=== PATIENT | female | born 1955 | race Caucasian/White ===

== ENCOUNTER 2020-12-28 07:12 | Outpatient (CLI) | payer MEDICARE, OTHER ==
[~2020-12-28] VITALS: Ht 162.6 cm; Wt 93.0 kg
[2021-01-01] MEDS ORDERED: FENO43CA6 PO (10:05)
[2021-01-01] MEDS ORDERED: OMEP20CA18 PO (10:05)
[2021-01-01] MEDS ORDERED: ATEN25TA PO (10:05)
[2021-01-01] MEDS ORDERED: BETA1TAB15 PO (10:05)
[2021-01-01] MEDS ORDERED: CALC600T91 PO (10:05)
[2021-01-01] MEDS ORDERED: AMT10T PO (10:05)
[2021-01-01] MEDS ORDERED: LOSA100T57 PO (10:05)
[2021-01-01] MEDS ORDERED: ASCO100024 PO (10:05)
[2021-01-01] MEDS ORDERED: MELA5TAB14 PO (10:05)
[2021-01-01] MEDS ORDERED: MV-M1TAB20 PO (10:05)
[2021-01-01] MEDS ORDERED: CITA10TA12 PO (10:05)
[2021-01-01] MEDS ORDERED: CYCL10TA9 PO (10:05)
[2021-01-01] MEDS ORDERED: BUPR300T43 PO (10:05)
== END 2021-01-02 15:29 | disposition home or self-care (01) ==
LOC: PREOP 07:12
PROVIDERS: ATTEND Specialist
DX: Z01.818 Encounter for other preprocedural examination (principal)

== ENCOUNTER 2021-01-04 10:43 | Day surgery (SDC) | payer MEDICARE, OTHER ==
[~2021-01-04] VITALS: Ht 162.6 cm; Wt 93.0 kg
[~2021-01-04 10:43] MED LIST: AMT10T PO; ASCO100024 PO; ATEN25TA PO; BETA1TAB15 PO; BUPR300T43 PO; CALC600T91 PO; CITA10TA12 PO; CYCL10TA9 PO; FENO43CA6 PO; LOSA100T57 PO; MELA5TAB14 PO; MV-M1TAB20 PO; OMEP20CA18 PO
--- OUTSIDE RECORDS SUMMARY | 2021-01-04 10:48 | XMS REPORT | CCD ---
Author Author Alana Williamson D.O. Organization [facility] Address [address] [place] [address] Phone Care Team Providers Care Information Technology Teacher Name Role Phone Khadijah Williamson D.O., PP Unavailable CCM Unavailable Summary Purpose Interface Exchange Insurance Providers Payer name Policy type / Coverage type Covered alliance party ID Effective Begin Date Effective End Date WPS MEDICARE [place] Medicare Part B [id number] 2018 Unknown [employer] Medicare Part B [id number] Unknown Family History Family History data not found Social History Social History Element Codes Description Effective Dates Tobacco history SNOMED CT: 046042236 Unknown if ever smoked 09/13 Allergies, Adverse Reactions, Alerts Substance Reaction Codes Entered Date Inactivated Date Status _ Unknown 06/11/2009 No Inactive Date Active Milk _ Unknown 06/11/2009 No Inactive Date Active MORPHINE SULFATE _ RxNorm: 4170910 06/11/2009 No Inactive Da te Active * NO KNOWN ENVIRONMENTAL ALLERGIES Unknown 06/11/2009 N o Inactive Date Active Problems Condition Codes Effective Dates Condition Status Chronic major depressive disorder, recurrent episode I CD-10: F33.9 ICD-9: 296.30 07/20/2019 Active Essential hypertension ICD-10: I10 ICD-9: 401.9 02/08/2014 Active Other malaise and fatigue ICD-10: R53.81 ICD-9: 780.79 09/25/2020 Active Type 2 diabetes mellitus with hyperglycemia ICD-10: E1 1.65 ICD-9: 250.02 08/14/2011 Active Major depressive disorder, recurrent, moderate ICD-10: F33.1 ICD-9: 296.32 09/03/2017 Active Thyroid nodule ICD-10: E04.1 ICD-9: 241.0 06/19/2020 Active Type 2 diabetes mellitus without complications ICD-10: E11.9 ICD-9: 250.00 02/08/2014 Active Insomnia ICD-10: G47.00 ICD-9: 780.52 02/13/2020 Active Other spondylosis with radiculopathy, lumbosacral blake on ICD-10: M47.27 ICD-9: 722.52 11/26/2016 Active PNEUMOCOCCAL VACCINE ICD-10: Z23 ICD-9: V03.82 01/05/2019 Active Cough ICD-10: R05 ICD-9: 786.2 07/20/2019 Active Iron deficiency anemia ICD-10: D50.9 ICD-9: 280.9 10/31/2019 Active Mixed hyperlipidemia ICD-10: E78.2 ICD-9: 272.4 03/10/2016 Active Cystitis ICD-10: N30.90 ICD-9: 595.9 08/17/2019 Active Major depressive disorder, single episode, severe with out psychotic features ICD-10: F32.2 ICD-9: 311 08/13/2017 Active Sacroiliitis ICD-10: M46.1 ICD-9: 720.2 08/17/2019 Active Falls ICD-10: W19.XXXA ICD-9: E888.9 04/14/2019 Active Hypothyroidism, unspecified ICD-10: E03.9 ICD-9: 244.9 06/17/2012 Active Skin tag ICD-10: L91.8 ICD-9: 701.9 04/14/2019 Active Cervicalgia ICD-10: M54.2 ICD-9: 723.1 04/22/2017 Active Encounter for general adult medical examination withou t abnormal findings ICD- 10: Z00.00 ICD-9: V70.9 11/26/2016 Active FLU VACCINE ICD-10: Z23 ICD-9: V04.81 01/05/2019 Active Pain in left shoulder ICD-10: M25.512 ICD-9: 719.41 09/28/2018 Active Encounter for general adult medical examination withou t abnormal findings ICD- 10: Z00.00 ICD-9: V70.0 09/24/2014 Active Epigastric pain ICD-10: R10.13 ICD-9: 789.06 10/08/2017 Active Pain in left elbow ICD-10: M25.522 ICD-9: 719.42 09/28/2018 Active Pleurodynia ICD-10: R07.81 ICD-9: 786.50 09/28/2018 Active Elevated white blood cell count, unspecified ICD-10: D 72.829 ICD-9: 288.60 09/15/2018 Active Diarrhea, unspecified ICD-10: R19.7 ICD-9: 787.91 01/04/2018 Active URI, ACUTE ICD-10: J06.9 ICD-9: 465.9 08/13/2017 Active Acute bronchitis, unspecified ICD-10: J20.9 ICD-9: 466.0 03/11/2017 Active Localized enlarged lymph nodes ICD-10: R59.0 ICD-9: 785.6 03/11/2017 Active Infectious gastroenteritis and colitis, unspecified IC D-10: A09 ICD-9: 558.9 12/10/2016 Active Trochanteric bursitis, left hip ICD-10: M70.62 ICD-9: 726.5 07/14/2016 Active Varicose veins of left lower extremity with inflammati on ICD-10: I83.12 ICD-9: 454.1 11/05/2015 Active 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 ICD-10: E11.29 ICD-9: 250.00 02/08/2014 Active HYPOTHYROIDISM ICD-9: 244.9 06/17/2012 Active ROUTINE MEDICAL EXAM ICD-9: V70.0 09/24/2014 Active DEPRESSIVE DISORDER NEC ICD-9: 311 02/08/2014 Active DM W/O COMPLICATION TYPE II ICD-9: 250.00 02/08/2014 Acti ve HYPERTENSION ICD-9: 401.9 02/08/2014 Active OSTEOARTHRISIS MULTI SITES ICD-9: 715.98 05/11/2013 Activ e Apnea ICD-9: 786.03 09/02/2012 Active Tinea cruris ICD-9: 110.3 06/17/2012 Active ALLERGIC RHINITIS ICD-9: 477.9 10/27/2011 Active EDEMA ICD-9: 782.3 10/27/2011 Active Anemia Unknown 08/14/2011 Active ANEMIA IRON DEFICIENCY ICD-9: 280.9 08/14/2011 Active DM W/O COMPLICATION TYPE II, UNCONTROLLED ICD-9: 250.02 2011 Active Radiculopathy ICD-9: 729.2 07/09/2011 Active COUGH ICD-9: 786.2 09/18/2010 Active ACUTE STRESS REACT ICD-9: 308.9 08/19/2010 Active MALAISE AND FATIGUE ICD-9: 780.79 08/19/2010 Active POLYURIA ICD-9: 788.42 06/05/2010 Active Leg pain, left ICD-9: 729.5 09/19/2009 Active LUMB/LUMBOSAC DISC DEGEN ICD-9: 722.52 09/19/2009 Active Depression Unknown 06/11/2009 Active Diabetes mellitus Type 2 Unknown 06/11/2009 Active Diverticular disease Unknown 06/11/2009 Active Gastroesophageal reflux disease Unknown 06/11/2009 Active Hyperlipidemia Unknown 06/11/2009 Active Hypertension Unknown 06/11/2009 Active Resless leg syndrome Unknown 06/11/2009 Active BRONCHITIS, ACUTE ICD-9: 466.0 06/11/2009 Active GANGLION OF TENDON ICD-9: 727.42 06/11/2009 Active SINUSITIS, ACUTE ICD-9: 461.9 06/11/2009 Active Medications Medication Codes Instructions Start Date Stop Date Status Fill Instructions bupropion HCl XL 300 mg 24 hr tablet, extended release RxNor m: 639023 Take 1 Tablet(s) Oral QAM 11/12/2020 02/09/2021 Active citalopram 10 mg tablet RxNorm: 647486 Take 1 tablet by mouth o nce daily 11/05/2020 02/02/2021 Active cyclobenzaprine 10 mg tablet RxNorm: 117205 2-1 Table t(s) Oral three times a day as needed for muscle spasm 09/25/2020 10/14/2020 Inactive cyclobenzaprine 10 mg tablet RxNorm: 305879 2-1 Table t(s) Oral three times a day as needed for muscle spasm 09/25/2020 10/14/2020 Inactive fenofibrate micronized 134 mg capsule RxNorm: 525063 Ta ke 1 capsule by mouth once daily 08/27/2020 11/24/2020 Active citalopram 10 mg tablet RxNorm: 974079 Take 1 tablet by mouth o nce daily 08/06/2020 08/06/2020 Inactive atenolol 25 mg tablet RxNorm: 589628 Take 1 tablet by mouth onc e daily Oral 07/30/2020 01/25/2021 Active amitriptyline 10 mg tablet RxNorm: 985258 1-2 Tablet(s) Oral QPM as needed for sleep 06/05/2020 06/05/2020 Inactive omeprazole 20 mg capsule,delayed release RxNorm: 291091 1 Capsu le(s) Oral QD 06/05/2020 12/01/2020 Active cyclobenzaprine 10 mg tablet RxNorm: 597500 1/2-1 Table t(s) Oral three times a day as needed for muscle spasm 06/05/2020 06/05/2020 Inactive losartan 100 mg tablet RxNorm: 005860 1 Tablet(s) Oral every ni ght at bedtime 05/31/2020 11/26/2020 Active fenofibrate micronized 134 mg capsule RxNorm: 556223 Ta ke 1 capsule by mouth once daily 05/21/2020 05/21/2020 Inactive Celebrex 200 mg capsule RxNorm: 613475 1 Capsule(s) Ora l two times a day for pain 05/16/2020 08/13/2020 Inactive Wellbutrin XL 300 mg 24 hr tablet, extended release RxNorm: 332141 1 Tablet(s) Oral QAM 05/16/2020 05/16/2020 Inactive citalopram 10 mg tablet RxNorm: 899673 1 Tablet(s) Oral QD 05/15/1908/05/2020 Inactive omeprazole 20 mg capsule,delayed release RxNorm: 911105 Take 1 capsule by mouth once daily 03/05/2020 06/04/2020 Inactive fenofibrate micronized 134 mg capsule RxNorm: 328363 Ta ke 1 capsule by mouth once daily 02/20/2020 05/19/2020 Inactive amitriptyline 10 mg tablet RxNorm: 818356 1-2 Tablet(s) Oral QPM as needed for sleep 02/13/2020 06/04/2020 Inactive Celebrex 200 mg capsule RxNorm: 703859 TAKE 1 CAPSULE B Y MOUTH TWICE DAILY FOR PAIN 01/30/2020 05/15/2020 Inactive cyclobenzaprine 10 mg tablet RxNorm: 936828 TAKE 1/2 TO 1 (ONE-HALF TO ONE) TABLET BY MOUTH THREE TIMES DAILY NEEDED FOR MUSCLE SPASM 01/30/2020 06/04/2020 Inactive losartan 100 mg tablet RxNorm: 273275 TAKE 1 TABLET BY MOUTH ONCE DAILY AT BEDTIME 11/09/2019 05/30/2020 Inactive fenofibrate micronized 134 mg capsule RxNorm: 215123 1 Capsule( s) Oral QD 11/09/2019 02/06/2020 Inactive Wellbutrin XL 300 mg 24 hr tablet, extended release RxNorm: 226162 1 Tablet(s) Oral QAM 11/09/2019 05/15/2020 Inactive omeprazole 20 mg capsule,delayed release RxNorm: 340452 1 Capsu le(s) Oral QD 11/09/2019 02/06/2020 Inactive atenolol 25 mg tablet RxNorm: 838211 Take 1 tablet by mouth onc e daily 11/09/2019 07/29/2020 Inactive atenolol 25 mg tablet RxNorm: 934498 Take 1 tablet by mouth onc e daily 10/31/2019 11/08/2019 Inactive Celebrex 200 mg capsule RxNorm: 970862 TAKE 1 CAPSULE B Y MOUTH TWICE DAILY FOR PAIN 10/03/2019 11/01/2019 Inactive cyclobenzaprine 10 mg tablet RxNorm: 088887 TAKE 1/2 TO 1 (ONE-HALF TO ONE) TABLET BY MOUTH THREE TIMES DAILY NEEDED FOR MUSCLE SPASM 10/03/2019 11/11/2019 Inactive losartan 100 mg tablet RxNorm: 305555 TAKE 1 TABLET BY MOUTH ONCE DAILY AT BEDTIME 08/30/2019 11/08/2019 Inactive fenofibrate micronized 134 mg capsule RxNorm: 862000 1 Capsule( s) Oral QD 08/22/2019 11/08/2019 Inactive Wellbutrin XL 300 mg 24 hr tablet, extended release RxNorm: 693894 1 Tablet(s) Oral QAM 08/17/2019 11/08/2019 Inactive cyclobenzaprine 10 mg tablet RxNorm: 843349 TAKE 1/2 TO 1 (ONE-HALF TO ONE) TABLET BY MOUTH THREE TIMES DAILY NEEDED FOR MUSCLE SPASM 08/01/2019 08/20/2019 Inactive Xyzal 5 mg tablet RxNorm: 841209 1 Tablet(s) Oral QD 07/20/[address] op Date Active Wellbutrin XL 150 mg 24 hr tablet, extended release RxNorm: 796446 1 Tablet(s) Oral QAM replaces duloxetine 07/20/2019 02/12/2020 Inactive Tylenol Extra Strength 500 mg tablet RxNorm: 464131 2 T ablet(s) Oral two times a day 07/20/2019 05/13/2020 Inactive cefdinir 300 mg capsule RxNorm: 516056 1 Capsule(s) Oral two ti mes a day 07/20/2019 08/03/2019 Inactive duloxetine 60 mg capsule,delayed release RxNorm: 539292 1 Capsu le(s) Oral QD 06/09/2019 07/19/2019 Inactive omeprazole 20 mg capsule,delayed release RxNorm: 023066 TAKE 1 CAPSULE BY MOUTH ONCE DAILY 06/09/2019 06/08/2019 Inactive omeprazole 20 mg capsule,delayed release RxNorm: 585301 1 Capsu le(s) Oral QD 06/09/2019 09/07/2019 Inactive losartan 100 mg tablet RxNorm: 877511 TAKE 1 TABLET BY MOUTH ONCE DAILY AT BEDTIME 05/30/2019 08/27/2019 Inactive fenofibrate micronized 134 mg capsule RxNorm: 322707 TA KE 1 CAPSULE BY MOUTH ONCE DAILY 05/26/2019 08/21/2019 Inactive duloxetine 60 mg capsule,delayed release RxNorm: 008859 TAKE 1 CAPSULE BY MOUTH ONCE DAILY, REPLACES 30MG DOSE 05/19/2019 06/08/2019 Inactive atenolol 25 mg tablet RxNorm: 201902 1 Tablet(s) Oral QD 04/27/2019 0 10/23/2019 Inactive duloxetine 60 mg capsule,delayed release RxNorm: 326749 TAKE 1 CAPSULE BY MOUTH ONCE DAILY, REPLACES 30MG DOSE 04/18/2019 05/17/2019 Inactive cyclobenzaprine 10 mg tablet RxNorm: 208920 TAKE 1/2 TO 1 (ONE-HALF TO ONE) TABLET BY MOUTH THREE TIMES DAILY NEEDED FOR MUSCLE SPASM 03/29/2019 05/07/2019 Inactive Celebrex 200 mg capsule RxNorm: 878256 TAKE 1 CAPSULE B Y MOUTH TWICE DAILY FOR PAIN 03/29/2019 05/27/2019 Inactive losartan 100 mg tablet RxNorm: 774856 TAKE 1 TABLET BY MOUTH ONCE DAILY AT BEDTIME 03/07/2019 05/29/2019 Inactive duloxetine 60 mg capsule,delayed release RxNorm: 977913 TAKE 1 CAPSULE BY MOUTH ONCE DAILY, REPLACES 30MG DOSE 02/15/2019 04/17/2019 Inactive duloxetine 60 mg capsule,delayed release RxNorm: 901248 TAKE 1 CAPSULE BY MOUTH ONCE DAILY, REPLACES 30MG DOSE 12/14/2018 02/14/2019 Inactive omeprazole 20 mg capsule,delayed release RxNorm: 130433 TAKE 1 CAPSULE BY MOUTH ONCE DAILY 12/14/2018 06/09/2019 Inactive fenofibrate micronized 134 mg capsule RxNorm: 224798 1 Capsule( s) PO QD 11/23/2018 05/25/2019 Inactive duloxetine 60 mg capsule,delayed release RxNorm: 464997 TAKE 1 CAPSULE BY MOUTH ONCE DAILY, REPLACES 30MG DOSE 10/11/2018 12/13/2018 Inactive losartan 100 mg tablet RxNorm: 330920 TAKE 1 TABLET BY MOUTH EVERY DAY AT BEDTIME 09/01/2018 03/06/2019 Inactive fenofibrate micronized 134 mg capsule RxNorm: 460759 1 Capsule( s) PO QD 08/24/2018 11/22/2018 Inactive Celebrex 200 mg capsule RxNorm: 893576 1 Capsule(s) PO BID for pain 07/29/2018 11/25/2018 Inactive cyclobenzaprine 10 mg tablet RxNorm: 804870 1/2-1 Table t(s) PO TID as needed for muscle spasm 07/29/2018 03/28/2019 Inactive cyclobenzaprine 10 mg tablet RxNorm: 519065 1/2-1 Table t(s) PO TID as needed for muscle spasm 06/11/2018 07/28/2018 Inactive Celebrex 200 mg capsule RxNorm: 536494 1 Capsule(s) PO BID for pain 05/27/2018 07/25/2018 Inactive fenofibrate micronized 134 mg capsule RxNorm: 496757 TA KE 1 CAPSULE BY MOUTH ONCE DAILY 05/24/2018 08/24/2018 Inactive omeprazole 20 mg capsule,delayed release RxNorm: 191531 1 Capsu le(s) PO QD 05/10/2018 05/09/2018 Inactive omeprazole 20 mg capsule,delayed release RxNorm: 279458 1 Capsu le(s) PO QD 05/10/2018 11/05/2018 Inactive atenolol 25 mg tablet RxNorm: 628204 1 Tablet(s) PO QD 05/10/201801/2020 Inactive atenolol 25 mg tablet RxNorm: 473266 1 Tablet(s) PO QD 05/10/2018 Inactive losartan 100 mg tablet RxNorm: 543516 1 Tablet(s) PO QHS 04/12/2018 0 08/31/2018 Inactive Januvia 50 mg tablet RxNorm: 442690 1 Tablet(s) PO QD 04/06/201809/13 Inactive duloxetine 60 mg capsule,delayed release RxNorm: 576507 TAKE 1 CAPSULE BY MOUTH ONCE DAILY, REPLACES 30MG DOSE 03/10/2018 10/10/2018 Inactive losartan 100 mg tablet RxNorm: 964479 TAKE 1 TABLET BY MOUTH AT BEDTIME 01/04/2018 04/12/2018 Inactive cyclobenzaprine 10 mg tablet RxNorm: 837966 TAKE 1/2 TO 1 (ONE-HALF TO ONE) TABLET BY MOUTH THREE TIMES DAILY NEEDED FOR MUSCLE SPASM 12/24/2017 06/11/2018 Inactive duloxetine 60 mg capsule,delayed release RxNorm: 568034 TAKE 1 CAPSULE BY MOUTH ONCE DAILY, REPLACES 30MG DOSE 12/08/2017 03/09/2018 Inactive fenofibrate micronized 134 mg capsule RxNorm: 112754 1 Capsule( s) PO QD 11/23/2017 05/21/2018 Inactive atenolol 25 mg tablet RxNorm: 541832 1 Tablet(s) PO QD 11/09/2017 Inactive losartan 100 mg tablet RxNorm: 790737 1 Tablet(s) PO QHS REPLAC ES 50MG DOSE 10/02/2017 12/30/2017 Inactive losartan 100 mg tablet RxNorm: 991941 TAKE ONE TABLET B Y MOUTH ONCE DAILY AT BEDTIME - REPLACES 50MG DOSE 09/08/2017 10/02/2017 Inactive cyclobenzaprine 10 mg tablet RxNorm: 327814 1/2-1 Table t(s) PO TID as needed for muscle spasm 09/03/2017 2017 Inactive duloxetine 60 mg capsule,delayed release RxNorm: 696430 1 Capsule(s) PO QD replaces 30mg dose 09/03/2017 12/01/2017 Inactive fenofibrate micronized 134 mg capsule RxNorm: 192787 1 Capsule( s) PO QD 08/18/2017 11/23/2017 Inactive omeprazole 20 mg capsule,delayed release RxNorm: 640146 Capsule(s) TAKE ONE CAPSULE BY MOUTH ONCE DAILY 08/18/2017 05/10/2018 Inactive metformin 1,000 mg tablet RxNorm: 244043 1 Tablet(s) PO QAM rep laces Janumet 08/13/2017 10/07/2017 Inactive prednisone 20 mg tablet RxNorm: 349653 1 Tablet(s) PO T ID for 3 days then 1 po BID for 3 days then one daily for 3 days 08/13/2017 09/02/2017 Inactiv e Cymbalta 30 mg capsule,delayed release RxNorm: 377996 1 Capsule (s) PO QD 08/13/2017 09/02/2017 Inactive citalopram 40 mg tablet RxNorm: 130023 1 Tablet(s) PO QD 06/09/2017 0 08/12/2017 Inactive meloxicam 15 mg tablet RxNorm: 009588 1 Tablet(s) PO QD 1 Tablet(s) PO QD TAKE ONE TABLET BY MOUTH ONCE DAILY FOR PAIN 05/05/2017 10/07/2017 Inactive fenofibrate micronized 134 mg capsule RxNorm: 151019 1 Capsule( s) PO QD 05/05/2017 08/18/2017 Inactive atenolol 25 mg tablet RxNorm: 348448 1 Tablet(s) PO QD 05/05/2017 Inactive Janumet XR 50 mg-1,000 mg tablet,extended release RxNorm: 12 44625 1 Tablet(s) PO QAM replaces 100mg/1000mg dose 04/22/2017 08/12/2017 Inactive Lyrica 75 mg capsule RxNorm: 433239 1 Capsule(s) PO BID 04/22/2017 Inactive Janumet XR 100 mg-1,000 mg tablet,extended release RxNorm: 1 400176 1 Tablet(s) PO QD 03/11/2017 04/21/2017 Inactive losartan 100 mg tablet RxNorm: 316477 1 Tablet(s) PO QHS replac es 50mg dose 03/11/2017 09/06/2017 Inactive cyclobenzaprine 10 mg tablet RxNorm: 408407 1 Tablet(s) PO TID Tablet(s) 1 Tablet(s) PO TID as needed for muscle spasm 02/04/2017 05/31/2017 Inac tive cyclobenzaprine 10 mg tablet RxNorm: 864351 1 Tablet(s) PO TID Tablet(s) 1 Tablet(s) PO TID as needed for muscle spasm 02/04/2017 02/03/2017 Inac tive omeprazole 20 mg capsule,delayed release RxNorm: 932823 Capsule(s) TAKE ONE CAPSULE BY MOUTH ONCE DAILY 01/05/2017 08/18/2017 Inactive Janumet XR 100 mg-1,000 mg tablet,extended release RxNorm: 1 629014 1 Tablet(s) PO QD 01/05/2017 03/05/2017 Inactive citalopram 40 mg tablet RxNorm: 160979 1 Tablet(s) PO QD 12/03/2016 0 06/09/2017 Inactive atenolol 25 mg tablet RxNorm: 790921 1 Tablet(s) PO QD 11/06/2016 Inactive cyclobenzaprine 10 mg tablet RxNorm: 531862 1 Tablet(s) PO TID Tablet(s) 1 Tablet(s) PO TID as needed for muscle spasm 11/05/2016 02/04/2017 Inac tive Janumet XR 100 mg-1,000 mg tablet,extended release RxNorm: 1 076641 1 Tablet(s) PO QD Due for fasting labs 11/05/2016 01/05/2017 Inactive fenofibrate micronized 134 mg capsule RxNorm: 025226 1 Capsule( s) PO QD 11/05/2016 05/05/2017 Inactive meloxicam 15 mg tablet RxNorm: 379176 1 Tablet(s) PO QD 1 Tablet(s) PO QD TAKE ONE TABLET BY MOUTH ONCE DAILY FOR PAIN 11/05/2016 05/05/2017 Inactive atenolol 25 mg tablet RxNorm: 997361 1 Tablet(s) PO QD 08/07/2016 Inactive cyclobenzaprine 10 mg tablet RxNorm: 510012 Tablet(s) T ablet(s) 1 Tablet(s) PO TID as needed for muscle spasm 08/07/2016 11/05/2016 Inactive Cozaar 50 mg tablet RxNorm: 671568 1 Tablet(s) PO QHS for BP 201603/10/2017 Inactive Cozaar 50 mg tablet RxNorm: 496285 1 Tablet(s) PO QHS for BP 201607/27/2016 Inactive meloxicam 15 mg tablet RxNorm: 649052 1 Tablet(s) PO QD TAKE ONE TABLET BY MOUTH ONCE DAILY FOR PAIN 05/07/2016 11/05/2016 Inactive omeprazole 20 mg capsule,delayed release RxNorm: 871028 TAKE ONE CAPSULE BY MOUTH ONCE DAILY 04/28/2016 01/05/2017 Inactive citalopram 40 mg tablet RxNorm: 867928 1 Tablet(s) PO QD 04/28/2016 0 12/03/2016 Inactive fenofibrate micronized 134 mg capsule RxNorm: 762276 1 Capsule( s) PO QD 03/11/2016 11/05/2016 Inactive Janumet XR 100 mg-1,000 mg tablet,extended release RxNorm: 1 178089 1 Tablet(s) PO QD Due for fasting labs 03/11/2016 11/05/2016 Inactive Cozaar 50 mg tablet RxNorm: 143326 1 Tablet(s) PO QHS for BP 201507/28/2016 Inactive citalopram 40 mg tablet RxNorm: 122022 1 Tablet(s) PO QD 03/11/2016 0 04/09/2016 Inactive cyclobenzaprine 10 mg tablet RxNorm: 002349 Tablet(s) 1 Tablet(s) PO TID as needed for muscle spasm 02/11/2016 08/07/2016 Inactive citalopram 20 mg tablet RxNorm: 544100 TAKE ONE TABLET BY MOUTH AT BEDTIME 12/17/2015 03/10/2016 Inactive atenolol 25 mg tablet RxNorm: 512779 1 Tablet(s) PO QD 11/06/2015 Inactive meloxicam 15 mg tablet RxNorm: 641166 1 Tablet(s) PO QD TAKE ONE TABLET BY MOUTH ONCE DAILY FOR PAIN 11/06/2015 05/03/2016 Inactive Janumet XR 100 mg-1,000 mg tablet,extended release RxNorm: 1 884031 1 Tablet(s) PO QD Due for fasting labs 11/06/2015 03/10/2016 Inactive fenofibrate micronized 134 mg capsule RxNorm: 159825 1 Capsule( s) PO QD 11/06/2015 03/10/2016 Inactive cyclobenzaprine 10 mg tablet RxNorm: 592026 Tablet(s) 1 Tablet(s) PO TID as needed for muscle spasm 11/06/2015 01/04/2016 Inactive Cozaar 50 mg tablet RxNorm: 635986 1 Tablet(s) PO QHS for BP 201503/01/2016 Inactive Janumet XR 100 mg-1,000 mg tablet,extended release RxNorm: 1 411998 1 Tablet(s) PO QD Due for fasting labs 09/04/2015 11/05/2015 Inactive atenolol 25 mg tablet RxNorm: 040707 TAKE ONE TABLET BY MOUTH O NCE DAILY 07/17/2015 08/07/2016 Inactive omeprazole 20 mg capsule,delayed release RxNorm: 375139 1 Capsu le(s) PO QD 07/09/2015 02/03/2016 Inactive cyclobenzaprine 10 mg tablet RxNorm: 232785 Tablet(s) 1 Tablet(s) PO TID as needed for muscle spasm 06/12/2015 08/10/2015 Inactive citalopram 20 mg tablet RxNorm: 876042 1 Tablet(s) PO QHS 06/12/2015 12/08/2015 Inactive meloxicam 15 mg tablet RxNorm: 134244 Tablet(s) TAKE ON E TABLET BY MOUTH ONCE DAILY FOR PAIN 05/16/2015 11/05/2015 Inactive atenolol 25 mg tablet RxNorm: 399561 1 Tablet(s) PO QD 05/11/2015 Inactive fenofibrate micronized 134 mg capsule RxNorm: 169214 1 Capsule( s) PO QD 05/11/2015 11/05/2015 Inactive omeprazole 20 mg capsule,delayed release RxNorm: 301381 1 Capsu le(s) PO QD 04/17/2015 07/08/2015 Inactive doxycycline hyclate 100 mg capsule RxNorm: 6557301 1 Capsule(s) PO BID 03/15/2015 03/24/2015 Inactive Cozaar 50 mg tablet RxNorm: 790084 1 Tablet(s) PO QHS for BP 201409/04/2015 Inactive Janumet XR 100 mg-1,000 mg tablet,extended release RxNorm: 1 342672 1 Tablet(s) PO QD 03/15/2015 09/04/2015 Inactive albuterol sulfate 2.5 mg/3 mL (0.083 %) solution for n ebulization RxNorm: 751284 3 Milliliter(s) INH TID INHALE ONE VIAL PER NEBULIZER 03/01/2015 11/05/2015 Inactive Medrol (Alexei) 4 mg tablets in a dose pack RxNorm: 547020 Tablet(s) PO as directed 03/01/2015 03/14/2015 Inactive as directed cefdinir 300 mg capsule RxNorm: 485622 2 Capsule(s) PO QD 03/01/2015 03/10/2015 Inactive Janumet XR 100 mg-1,000 mg tablet,extended release RxNorm: 1 276030 1 Tablet(s) PO QD Needs fasting labs 02/19/2015 03/15/2015 Inactive Janumet XR 100 mg-1,000 mg tablet,extended release RxNorm: 1 052106 1 Tablet(s) PO QD Needs fasting labs 01/23/2015 02/19/2015 Inactive omeprazole 20 mg capsule,delayed release RxNorm: 899817 1 Capsu le(s) PO QD 01/23/2015 04/16/2015 Inactive citalopram 20 mg tablet RxNorm: 507869 1 Tablet(s) PO QHS 12/18/2014 06/12/2015 Inactive cyclobenzaprine 10 mg tablet RxNorm: 929322 1 Tablet(s) PO TID as needed for muscle spasm 11/13/2014 06/12/2015 Inactive fenofibrate micronized 134 mg capsule RxNorm: 257703 1 Capsule(s) PO QD -patient is due for fasting labs 11/13/2014 05/11/2015 Inactive meloxicam 15 mg tablet RxNorm: 586547 TAKE ONE TABLET B Y MOUTH ONCE DAILY FOR PAIN 11/13/2014 05/16/2015 Inactive atenolol 25 mg tablet RxNorm: 941981 1 Tablet(s) PO QD - due fo r labs 11/13/2014 05/11/2015 Inactive omeprazole 20 mg capsule,delayed release RxNorm: 944457 1 Capsu le(s) PO QD 10/16/2014 01/23/2015 Inactive atenolol 25 mg tablet RxNorm: 381994 1 Tablet(s) PO QD - due fo r labs 10/11/2014 11/09/2014 Inactive [AttnRPh: Saving christina ly/adjudicate RxGRP:SG20 RxBIN:[id number] RxPCN:HT ID#:[id number]] fenofibrate micronized 134 mg capsule RxNorm: 545972 1 Capsule(s) PO QD -patient is due for fasting labs 10/11/2014 04/13/2019 Inactive [AttnRPh : Saving apply/adjudicate RxGRP:SG20 RxBIN:[id number] RxPCN:HT ID#:[id number]] fenofibrate micronized 134 mg capsule RxNorm: 911905 1 Capsule(s) PO QD -patient is due for fasting labs 09/12/2014 10/11/2014 Inactive [AttnRPh : Saving apply/adjudicate RxGRP:SG20 RxBIN:[id number] RxPCN:HT ID#:[id number]] atenolol 25 mg tablet RxNorm: 125162 1 Tablet(s) PO QD - due fo r labs 09/12/2014 10/11/2014 Inactive [AttnRPh: Saving christina ly/adjudicate RxGRP:SG20 RxBIN:[id number] RxPCN:HT ID#:[id number]] meloxicam 15 mg tablet RxNorm: 681718 1 Tablet(s) PO QD for pain 11/06/2014 Inactive citalopram 20 mg tablet RxNorm: 503162 1 Tablet(s) PO Q HS TAKE ONE TABLET BY MOUTH AT BEDTIME 08/09/2014 12/18/2014 Inactive cyclobenzaprine 10 mg tablet RxNorm: 296023 1 Tablet(s) PO TID as needed for muscle spasm 08/09/2014 09/07/2014 Inactive Janumet XR 100 mg-1,000 mg tablet,extended release RxNorm: 1 480278 Tablet(s) 1 Tablet(s) PO QD 07/19/2014 01/23/2015 Inactive fenofibrate micronized 134 mg capsule RxNorm: 549532 1 Capsule( s) PO QD 06/06/2014 09/12/2014 Inactive [AttnRPh: Saving christina ly/adjudicate RxGRP:SG20 RxBIN:[id number] RxPCN:HT ID#:[id number]] cyclobenzaprine 10 mg tablet RxNorm: 854786 1 Tablet(s) PO TID as needed for muscle spasm 06/06/2014 07/05/2014 Inactive fenofibrate micronized 134 mg capsule RxNorm: 012838 1 Capsule( s) PO QD 03/10/2014 03/09/2014 Inactive fenofibrate micronized 134 mg capsule RxNorm: 726549 1 Capsule( s) PO QD 03/10/2014 06/06/2014 Inactive meloxicam 15 mg tablet RxNorm: 809533 1 Tablet(s) PO QD for pain 08/09/2014 Inactive citalopram 20 mg tablet RxNorm: 454275 1 Tablet(s) PO QHS 02/08/2014 08/09/2014 Inactive [AttnRPh: Saving apply/adjudicate RxGRP: SG20 RxBIN:[id number] RxPCN:HT ID#:[id number]] Flexeril 10 mg tablet RxNorm: 643726 1 Tablet(s) PO QHS for spasm 0 12/13/2013 06/06/2014 Inactive [AttnRPh: Saving apply/adjud icate RxGRP:SG20 RxBIN:[id number] RxPCN:HT ID#:[id number]] meloxicam 15 mg tablet RxNorm: 311016 1 Tablet(s) PO QD TAKE ONE TABLET BY MOUTH ONCE DAILY FOR PAIN 12/13/2013 02/12/2014 Inactive omeprazole 20 mg capsule,delayed release RxNorm: 453012 2 Capsu le(s) PO QD 12/13/2013 03/12/2014 Inactive Janumet XR 100 mg-1,000 mg tablet,extended release RxNorm: 1 435558 1 Tablet(s) PO QD 10/20/2013 07/19/2014 Inactive Janumet XR 100 mg-1,000 mg tablet,extended release RxNorm: 1 864208 1 Tablet(s) PO QD 10/18/2013 10/19/2013 Inactive atenolol 25 mg tablet RxNorm: 576552 1 Tablet(s) PO QD 08/31/2013 Inactive [AttnRPh: Saving apply/adjudicate RxGRP: SG20 RxBIN:[id number] RxPCN:HT ID#:[id number]] Janumet XR 100 mg-1,000 mg tablet,extended release RxNorm: 1 734551 1 Tablet(s) PO QD 07/12/2013 10/09/2013 Inactive baclofen 10 mg tablet RxNorm: 365397 1 Tablet(s) PO BID for spasm 0 05/11/2013 09/07/2013 Inactive AttnRPh: Saving apply/adjudi vika RxGRP:SG20 RxBIN:[id number] RxPCN: ID#:[id number] Celebrex 200 mg capsule RxNorm: 144907 1 Capsule(s) PO BID for pain 05/11/2013 09/07/2013 Inactive Janumet XR 100 mg-1,000 mg tablet,extended release RxNorm: 1 252013 1 Tablet(s) PO QD 04/21/2013 07/12/2013 Inactive omeprazole 20 mg capsule,delayed release RxNorm: 353087 2 Capsu le(s) PO QD 02/28/2013 12/13/2013 Inactive Janumet XR 100 mg-1,000 mg tablet,extended release RxNorm: 1 577215 1 Tablet(s) PO QD 01/20/2013 01/19/2013 Inactive Janumet XR 100 mg-1,000 mg tablet,extended release RxNorm: 1 428378 1 Tablet(s) PO QD 01/20/2013 04/21/2013 Inactive clindamycin 300 mg capsule RxNorm: 287725 2 Capsule(s) PO TID 01/1801/27/2013 Inactive AttnRPh: Saving apply/adjudi vika RxGRP:SG20 RxBIN:[id number] RxPCN: ID#:[id number] cefdinir 300 mg capsule RxNorm: 243164 2 Capsule(s) PO QD 12/22/2012 01/04/2013 Inactive Kombiglyze XR 5 mg-1,000 mg tablet,extended release RxNorm: 1117532 1 Tablet(s) PO QD 10/11/2012 01/19/2013 Inactive Kombiglyze XR 5 mg-1,000 mg tablet,extended release RxNorm: 6964746 1 Tablet(s) PO QD 10/11/2012 05/26/2018 Inactive atenolol 25 mg tablet RxNorm: 357641 1 Tablet(s) PO QD 09/27/2012 Inactive Abilify 2 mg tablet RxNorm: 958872 1 Tablet(s) PO QAM 09/27/201204/17 Inactive atenolol 25 mg tablet RxNorm: 153290 1 Tablet(s) PO QD 09/02/2012 Inactive omeprazole 20 mg capsule,delayed release RxNorm: 610586 2 Capsu le(s) PO QD 07/13/2012 07/12/2012 Inactive omeprazole 20 mg capsule,delayed release RxNorm: 437289 2 Capsu le(s) PO QD 07/13/2012 01/08/2013 Inactive Kombiglyze XR 5 mg-1,000 mg tablet,extended release RxNorm: 8909810 1 Tablet(s) PO QD 07/12/2012 10/09/2012 Inactive citalopram 20 mg tablet RxNorm: 547973 1 Tablet(s) PO QHS 06/24/2012 09/01/2012 Inactive Flexeril 10 mg tablet RxNorm: 129688 1 Tablet(s) PO TID 06/24/2012 Inactive as needed for spasms. Generic ok. Diflucan 100 mg tablet RxNorm: 283788 1 Tablet(s) PO QD 06/17/2012 Inactive Kombiglyze XR 5 mg-1,000 mg tablet,extended release RxNorm: 9266299 1 Tablet(s) PO QD 04/12/2012 07/10/2012 Inactive doxycycline monohydrate 100 mg tablet RxNorm: 9521290 1 Tablet(s ) PO BID 03/15/2012 03/24/2012 Inactive Kombiglyze XR 5 mg-1,000 mg tablet,extended release RxNorm: 7188402 1 Tablet(s) PO QD need updated lab 03/02/2012 05/26/2018 Inactive Kombiglyze XR 5 mg-1,000 mg tablet,extended release RxNorm: 2863774 1 Tablet(s) PO QD 03/02/2012 03/01/2012 Inactive Kombiglyze XR 5 mg-1,000 mg tablet,extended release RxNorm: 8784955 1 Tablet(s) PO QD 03/02/2012 03/31/2012 Inactive Flexeril 10 mg tablet RxNorm: 076210 1 Tablet(s) PO TID 02/25/2012 Inactive as needed for spasms. Generic ok. citalopram 20 mg tablet RxNorm: 560028 1 Tablet(s) PO QD 12/17/2011 0 06/13/2012 Inactive Lyrica 75 mg capsule RxNorm: 930026 1 Capsule(s) PO QHS 12/03/2011 Inactive Abilify 2 mg tablet RxNorm: 579753 1 Tablet(s) PO QAM 12/03/20110 05/2012 Inactive Flexeril 10 mg tablet RxNorm: 926679 1 Tablet(s) PO TID 12/03/2011 Active as needed for spasms. Generic ok. Lyrica 75 mg capsule RxNorm: 479607 1 Capsule(s) PO QHS 09/22/2011 Inactive Flexeril 10 mg tablet RxNorm: 965626 1 Tablet(s) PO TID 08/18/2011 Active as needed for spasms. Generic ok. meloxicam 15 mg tablet RxNorm: 267279 1 Tablet(s) PO QD 08/14/2011 Inactive prn pain atenolol 25 mg tablet RxNorm: 941344 1 Tablet(s) PO QD 08/14/2011 Inactive Abilify 2 mg tablet RxNorm: 123347 1 Tablet(s) PO QAM 06/16/201109/15 Inactive citalopram 20 mg tablet RxNorm: 758117 1 Tablet(s) PO QD 06/16/2011 0 12/12/2011 Inactive metformin ER 500 mg 24 hr Tab RxNorm: 991524 1 Tablet(s) PO BID 08/13/2011 Inactive Abilify 2 mg Tab RxNorm: 088850 1 Tablet(s) PO QAM 02/10/2011 012 Inactive cefuroxime axetil 500 mg Tab RxNorm: 870928 1 Tablet(s) PO BID 01/1502/19/2011 Inactive metformin ER 500 mg 24 hr Tab RxNorm: 273418 1 Tablet(s) PO BID 04/28/2011 Inactive Abilify 2 mg Tab RxNorm: 076053 1 Tablet(s) PO QAM 12/12/2010 011 Inactive doxycycline 100 mg Cap RxNorm: 6998059 1 Capsule(s) PO BID 12/13/19 11 12/18/2010 Inactive citalopram 20 mg Tab RxNorm: 724118 1 Tablet(s) PO QD 12/12/2010 04/03/2011 Inactive Abilify 2 mg Tab RxNorm: 235471 1 Tablet(s) PO QAM 12/11/2010 011 Inactive citalopram 20 mg Tab RxNorm: 639939 1 Tablet(s) PO QD 11/11/201011/15 Inactive Abilify 2 mg Tab RxNorm: 038316 1 Tablet(s) PO QAM 10/14/2010 011 Inactive Flexeril 10 mg Tab RxNorm: 714610 1 Tablet(s) PO TID a s needed for spasms. Generic ok. 08/30/2010 08/29/2010 Active citalopram 20 mg Tab RxNorm: 935241 1 Tablet(s) PO QD 08/19/201010/15 Inactive Abilify 2 mg Tab RxNorm: 578890 1 Tablet(s) PO QAM 08/19/2010 011 Inactive Synthroid 25 mcg Tab RxNorm: 767073 1 Tablet(s) PO QD 07/03/201011/14 Inactive meloxicam 15 mg Tab RxNorm: 531258 1 Tablet(s) PO QD prn pain 06/0505/30/2011 Inactive atenolol 25 mg Tab RxNorm: 147834 1 Tablet(s) PO QD 06/05/20102011 Inactive Wellbutrin XL 300 mg 24 hr Tab RxNorm: 255271 1 Tablet(s) PO QAM 08/03/2010 Inactive Flexeril 10 mg Tab RxNorm: 341646 1 Tablet(s) PO TID as needed for spasms 06/05/2010 06/04/2010 Active metformin ER 500 mg 24 hr Tab RxNorm: 466510 1 Tablet(s) PO BID 12/01/2010 Inactive omeprazole 20 mg capsule,delayed release RxNorm: 333404 2 Capsu le(s) PO QD 06/05/2010 07/13/2012 Inactive metformin ER 500 mg 24 hr Tab RxNorm: 214254 1 Tablet(s) PO 010 06/04/2010 Inactive doxycycline 100 mg Cap RxNorm: 5885756 1 Capsule(s) PO BID 03/12/20 10 03/21/2010 Inactive omeprazole 20 mg Cap, Delayed Release RxNorm: 320935 2 Capsule( s) PO QD 02/04/2010 06/04/2010 Inactive Synthroid 25 mcg Tab RxNorm: 026807 1 Tablet(s) PO QD 01/14/201005/16 Inactive metformin 500 mg Tab RxNorm: 842396 1 Tablet(s) PO BID 12/21/2009 Inactive Cymbalta 60 mg Cap RxNorm: 905414 1 Capsule(s) PO QD 11/22/200908/18 Inactive Flexeril 10 mg Tab RxNorm: 794040 1 Tablet(s) PO PRN 11/22/200911/21 Active atenolol 25 mg Tab RxNorm: 377938 1 Tablet(s) PO QD 10/08/20092010 Inactive Synthroid 25 mcg Tab RxNorm: 819616 1 Tablet(s) PO QD 08/01/200912/14 Inactive meloxicam 15 mg Tab RxNorm: 626617 1 Tablet(s) PO QD prn pain 07/2306/04/2010 Inactive Avelox 400 mg Tab RxNorm: 507658 1 Tablet(s) PO QD 06/11/2009 010 Inactive Cymbalta 60 mg Cap RxNorm: 094875 1 Capsule(s) PO QD 05/20/200911/15 Inactive Vitamin C Oral RxNorm: Oral 06/11/2009 Active ferrous sulfate 325 mg (65 mg iron) tablet RxNorm: 464248 1 Tab let(s) PO BID 10/03/2014 Active PreserVision AREDS 2 250 mg-200 unit-40 mg-1 mg capsule RxNo rm: 1 Capsule(s) PO BID 10/03/2014 Active Vitamin D3 5,000 unit tablet RxNorm: 727742 1 Tablet(s) PO QD 014 Active Tylenol Extra Strength 500 mg tablet RxNorm: 606199 2 T ablet(s) PO QHS as needed 06/17/2012 Active Flexeril 10 mg Tab RxNorm: 094883 1 Tablet(s) PO TID as needed for spasms 06/05/2010 06/04/2010 Inactive Atenolol 25 mg Tab RxNorm: 830250 1 Tablet(s) PO QD 10/08/20092009 Inactive Lyrica 75 mg capsule RxNorm: 670069 1 Capsule(s) PO QD 04/22/201708/2017 Inactive ferrous sulfate 325 mg (65 mg iron) tablet RxNorm: 657166 1 Tab let(s) PO QD 02/13/2020 02/12/2020 Inactive Fish Oil 1,000 mg capsule RxNorm: 3 Capsule(s) PO QD 11/06/2015 Inactive Iron (ferrous sulfate) 325 mg (65 mg iron) tablet RxNorm: 31 0325 1 Tablet(s) PO BID 05/11/2013 05/10/2013 Inactive omeprazole 20 mg capsule,delayed release RxNorm: 354246 1 Capsu le(s) PO QD 10/16/2014 10/15/2014 Inactive Lyrica 75 mg capsule RxNorm: 361971 1 Capsule(s) PO BID 08/13/2017 Inactive hydrocodone-acetaminophen 5 mg-500 mg tablet RxNorm: 116766 1-2 Tablet(s) PO TID as needed for pain 02/08/2014 02/07/2014 Inactive ferrous sulfate 325 mg (65 mg iron) tablet RxNorm: 173174 1 Tab let(s) PO BID 08/13/2017 08/12/2017 Inactive ferrous sulfate 325 mg (65 mg iron) tablet RxNorm: 425019 1 Tab let(s) PO QD 02/13/2020 02/12/2020 Inactive Abilify 2 mg Tab RxNorm: 868351 1 Tablet(s) PO QD 08/19/2010 08/19/19 11 Inactive Januvia 50 mg tablet RxNorm: 262837 1 Tablet(s) PO QD 04/06/201803/17 Inactive Vitamin D 1,000 unit Cap RxNorm: 895380 1 Capsule(s) PO QD 06/06/19 11 06/04/2010 Inactive Meloxicam 15 mg Tab RxNorm: 144082 1 Tablet(s) PO QD 07/23/200907/22 Inactive Darvocet-N 100 100 mg-650 mg Tab RxNorm: 120087 Tablet(s) PO PRN 06/04/2010 Inactive Flonase 50 mcg/actuation nasal spray,suspension RxNorm: 8963 21 2 [place] NASAL BID 05/11/2013 05/10/2013 Inactive AttnRPh: Saving apply/adjudicate RxGRP:SG20 RxBIN:[id number] RxPCN: ID#:[id number] Calcium with Vitamin D 600 mg-400 unit Tab RxNorm: 827520 2 Tab let(s) PO QD 12/17/2011 12/16/2011 Inactive azithromycin 250 mg Tab RxNorm: 022563 2 Tablet(s) PO Q D take 2 tablets (500 mg) by oral route once daily for 1 day then 1 tablet (250 mg) by oral route once daily for 4 days 09/18/2010 09/17/2010 Inactive metformin ER 500 mg 24 hr Tab RxNorm: 909828 1 Tablet(s) PO BID 12/29/2010 Inactive Aleve 220 mg tablet RxNorm: 830979 2 Tablet(s) PO QD 05/11/201305/10 Inactive Janumet XR 50 mg-500 mg tablet,extended release RxNorm: 1243 848 1 Tablet(s) PO QD 01/04/2018 01/03/2018 Inactive ferrous sulfate 325 mg (65 mg iron) tablet RxNorm: 289135 1 Tab let(s) PO BID 08/13/2017 08/12/2017 Inactive Cymbalta 60 mg Cap RxNorm: 999060 1 Capsule(s) PO QD 08/23/200908/22 Inactive baclofen 20 mg tablet RxNorm: 993987 1 Tablet(s) PO QHS and 1/2 tab po qam 08/13/2017 08/12/2017 Inactive Januvia 100 mg tablet RxNorm: 976975 1 Tablet(s) PO QD 04/06/2018 Inactive Multivitamin & Mineral Formula Tab RxNorm: 1 Tablet(s) PO QD 1 04/10/2013 02/07/2014 Inactive Tessalon Perle 100 mg capsule RxNorm: 1-2 Capsule(s) PO TID for cough 06/17/2012 06/16/2012 Inactive baclofen 20 mg tablet RxNorm: 979804 1/2 Tablet(s) PO Q HS and 1/2 tablet PRN during day 08/13/2017 08/12/2017 Inactive Medrol (Alexei) 4 mg Tabs in a Dose Pack RxNorm: 146118 Tablet(s) PO 1 05/02/2014 12/11/2010 Inactive as directed Flexeril 10 mg tablet RxNorm: 885761 1 Tablet(s) PO QHS for spasm 0 12/13/2013 12/12/2013 Inactive Tylenol Extra Strength 500 mg Tab RxNorm: 894862 2-3 Tablet(s) PO QHS 12/12/2010 12/11/2010 Inactive ferrous sulfate 325 mg (65 mg iron) tablet RxNorm: 885188 1 Tab let(s) PO BID 02/13/2020 02/12/2020 Inactive omeprazole 20 mg Cap, Delayed Release RxNorm: 270596 1 Capsule( s) PO QD 02/04/2010 02/03/2010 Inactive aspirin 81 mg tablet RxNorm: 145792 1 Tablet(s) PO QD 04/06/201803/17 Inactive omeprazole 20 mg capsule,delayed release RxNorm: 268274 1 Capsu le(s) PO QD 05/10/2018 05/09/2018 Inactive metformin 1,000 mg tablet RxNorm: 831673 1 Tablet(s) PO QD 02/02/20 18 01/31/2018 Inactive Synthroid 25 mcg Tab RxNorm: 331985 1 Tablet(s) PO QD 08/01/200907/14 Inactive Restasis 0.05 % Eye Dropperette RxNorm: 727133 1 Drop(s) OPH BID 06/16/2012 Inactive Flexeril 10 mg Tab RxNorm: 610168 1 Tablet(s) PO PRN 11/22/200911/21 Inactive Excedrin Extra Strength Oral RxNorm: Oral 11/04/2017 11/03/2017 Inactive Nasacort AQ 55 mcg Nasal [place] Aerosol RxNorm: 4910613 1 [place] N AMAURI BID 06/05/2010 06/04/2010 Inactive levothyroxine 25 mcg tablet RxNorm: 662710 1 Tablet(s) PO QD 201212/21/2012 Inactive tramadol 50 mg Tab RxNorm: 538885 1-2 Tablet(s) PO TID as neede d for pain 05/11/2013 05/10/2013 Inactive nystatin 100,000 unit/g Topical Powder RxNorm: 336225 Applicati on TOP BID 05/11/2013 05/10/2013 Inactive citalopram 20 mg tablet RxNorm: 152391 1 Tablet(s) PO QHS 06/24/2012 06/23/2012 Inactive Mobic 15 mg tablet RxNorm: 838626 1 Tablet(s) PO QD 02/08/20142013 Inactive ferrous sulfate 325 mg (65 mg iron) Tab RxNorm: 646892 1 Tablet (s) PO QD 04/06/2018 04/05/2018 Inactive Vitamin B12 1000mcg Tablet RxNorm: 1 Tablet(s) PO QD 02/08/2014 Inactive Medication Administered No Medication Administered data Immunizations Vaccine Codes Date Status Pneumococcal CVX: 33 02/13/2020 Complete Influenza CVX: 135 01/05/2019 Complete Influenza CVX: 135 01/05/2019 Complete Pneumococcal CVX: 133 01/05/2019 Complete Pneumococcal CVX: 133 01/05/2019 Complete Results No Results data Procedures Procedure Codes Date PNEUMOCOCCAL VACC 23 ALEXA IM CPT-4: 40693 02/13/2020 ADMIN PNEUMOCOCCAL VACCINE CPT-4: G0009 02/13/2020 URINALYSIS NONAUTO W/O SCOPE CPT-4: 24925 08/17/2019 FLU VACC PRSV FREE INC ANTIG 65 AND OLDER CPT-4: 47821 01/05/2019 FLU VACC PRSV FREE INC ANTIG 65 AND OLDER CPT-4: 61623 01/05/2019 PNEUMOCOCCAL VACC 13 ALEXA IM CPT-4: 28637 01/05/2019 ADMIN INFLUENZA VIRUS VAC CPT-4: G0008 01/05/2019 ADMIN PNEUMOCOCCAL VACCINE CPT-4: G0009 01/05/2019 INITIAL PREVENTIVE EXAM CPT-4: G0402 01/05/2019 DRAIN/INJECT JOINT/BURSA CPT-4: 66634 07/14/2016 TRIAMCINOLONE ACET INJ NOS CPT-4: J3301 07/14/2016 DEXAMETHASONE SODIUM PHOS CPT-4: J1100 07/14/2016 THER/PROPH/DIAG INJ SC/IM CPT-4: 22195 01/18/2013 METHYLPREDNISOLONE 40 MG INJ CPT-4: J1030 01/18/2013 TRIAMCINOLONE ACET INJ NOS CPT-4: J3301 01/18/2013 CEFTRIAXONE SODIUM INJECTION CPT-4: J0696 01/18/2013 THER/PROPH/DIAG INJ SC/IM CPT-4: 95103 01/18/2013 URINALYSIS NONAUTO W/O SCOPE CPT-4: 00469 06/05/2010 URINE CULTURE/ COLONY COUNT CPT-4: 05690 06/05/2010 Vital Signs Date Vital 09/25/2020 Blood Pressure 1: 126/64 Code: 8480-6 Heart Rate 1: 84 bpm Respiratory Rate: 20 bpm SpO2: 98% Temperature: 36.8 (C) / 98.2 (F) We ight: 204 lbs Code: 75440-2 06/19/2020 Blood Pressure 1: 126/74 Code: 8480-6 Heart Rate 1: 84 bpm Respiratory Rate: 20 bpm SpO2: 97% Temperature: 37.2 (C) / 99.0 (F) We ight: 205 lbs Code: 23568-3 05/14/2020 Blood Pressure 1: 136/70 Code: 8480-6 Heart Rate 1: 92 bpm Respiratory Rate: 20 bpm SpO2: 99% Temperature: 36.9 (C) / 98.4 (F) We ight: 206 lbs Code: 94932-4 02/13/2020 Blood Pressure 1: 134/82 Code: 8480-6 Heart Rate 1: 92 bpm Respiratory Rate: 20 bpm SpO2: 96% Temperature: 36.8 (C) / 98.3 (F) We ight: 207 lbs Code: 66194-2 11/08/2019 Blood Pressure 1: 136/78 Code: 8480-6 Heart Rate 1: 92 bpm Respiratory Rate: 20 bpm SpO2: 99% Temperature: 36.5 (C) / 97.7 (F) We ight: 208 lbs Code: 22053-8 08/17/2019 Blood Pressure 1: 146/70 Code: 8480-6 Heart Rate 1: 100 bpm Respiratory Rate: 20 bpm SpO2: 100% Temperature: 36.5 (C) / 97.7 (F) We ight: 204 lbs Code: 50321-0 07/20/2019 Blood Pressure 1: 136/82 Code: 8480-6 Heart Rate 1: 76 bpm Respiratory Rate: 20 bpm SpO2: 97% Temperature: 36.8 (C) / 98.2 (F) We ight: 203 lbs Code: 68433-9 04/14/2019 Blood Pressure 1: 140/78 Code: 8480-6 Heart Rate 1: 76 bpm Respiratory Rate: 20 bpm SpO2: 96% Temperature: 36.6 (C) / 97.8 (F) We ight: 202 lbs Code: 44246-1 01/05/2019 Blood Pressure 1: 130/68 Code: 8480-6 BMI: 35.6 Code: 80830-6 Heart Rate 1: 80 bpm Height: 5'3" Code: 8302-2 Respiratory Rate: 18 bpm SpO2: 98% Temperature: 36.6 (C) / 97.8 (F) Weight: 201 lbs Code: 71647-3 09/28/2018 Blood Pressure 1: 134/74 Code: 8480-6 Heart Rate 1: 84 bpm Respiratory Rate: 20 bpm SpO2: 97% Temperature: 36.8 (C) / 98.2 (F) We ight: 205 lbs Code: 90826-1 06/28/2018 Blood Pressure 1: 130/72 Code: 8480-6 Heart Rate 1: 76 bpm Respiratory Rate: 20 bpm SpO2: 95% Temperature: 36.7 (C) / 98.0 (F) We ight: 207 lbs Code: 96925-8 05/27/2018 Blood Pressure 1: 126/74 Code: 8480-6 Heart Rate 1: 76 bpm Respiratory Rate: 20 bpm Temperature: 36.9 (C) / 98.4 (F) Weight: 203 lbs Code : 11790-3 04/06/2018 Blood Pressure 1: 126/70 Code: 8480-6 BMI: 34.7 Code: 00837-2 Heart Rate 1: 80 bpm Height: 5'4" Code: 8302-2 Respiratory Rate: 20 bpm Temperatu re: 36.7 (C) / 98.0 (F) Weight: 202 lbs Code: 09978-6 02/01/2018 Blood Pressure 1: 114/60 Code: 8480-6 BMI: 33.8 Code: 27004-1 Heart Rate 1: 88 bpm Height: 5'4" Code: 8302-2 Respiratory Rate: 20 bpm SpO2: 96% Temperature: 36.7 (C) / 98.1 (F) Weight: 197 lbs Code: 50207-0 01/04/2018 Blood Pressure 1: 126/78 Code: 8480-6 BMI: 34.2 Code: 18636-9 Heart Rate 1: 76 bpm Height: 5'4" Code: 8302-2 Respiratory Rate: 20 bpm SpO2: 97% Temperature: 37.0 (C) / 98.6 (F) Weight: 199 lbs Code: 45634-5 11/04/2017 Blood Pressure 1: 134/78 Code: 8480-6 BMI: 34.8 Code: 53103-2 Heart Rate 1: 84 bpm Height: 5'4" Code: 8302-2 Respiratory Rate: 20 bpm SpO2: 98% Temperature: 37.0 (C) / 98.6 (F) Weight: 203 lbs Code: 71123-3 10/08/2017 Blood Pressure 1: 124/72 Code: 8480-6 BMI: 35.7 Code: 49129-3 Heart Rate 1: 84 bpm Height: 5'4" Code: 8302-2 Respiratory Rate: 20 bpm Temperatu re: 37.0 (C) / 98.6 (F) Weight: 208 lbs Code: 87322-0 09/03/2017 Blood Pressure 1: 142/78 Code: 8480-6 BMI: 35.7 Code: 33925-8 Heart Rate 1: 84 bpm Height: 5'4" Code: 8302-2 Respiratory Rate: 20 bpm Temperatu re: 36.6 (C) / 97.8 (F) Weight: 208 lbs Code: 06032-7 08/13/2017 Blood Pressure 1: 142/78 Code: 8480-6 BMI: 36.2 Code: 11270-3 Heart Rate 1: 76 bpm Height: 5'4" Code: 8302-2 Respiratory Rate: 20 bpm SpO2: 98% Temperature: 36.6 (C) / 97.9 (F) Weight: 211 lbs Code: 07430-9 04/22/2017 Blood Pressure 1: 126/62 Code: 8480-6 BMI: 35.0 Code: 22221-6 Heart Rate 1: 84 bpm Height: 5'4" Code: 8302-2 Respiratory Rate: 20 bpm SpO2: 96% Temperature: 36.6 (C) / 97.9 (F) Weight: 204 lbs Code: 47478-9 03/11/2017 Blood Pressure 1: 144/74 Code: 8480-6 BMI: 36.0 Code: 87398-4 Heart Rate 1: 80 bpm Height: 5'4" Code: 8302-2 Respiratory Rate: 20 bpm SpO2: 95% Temperature: 36.8 (C) / 98.3 (F) Weight: 210 lbs Code: 06899-6 12/10/2016 Blood Pressure 1: 148/80 Code: 8480-6 BMI: 36.6 Code: 60394-9 Heart Rate 1: 80 bpm Height: 5'4" Code: 8302-2 Respiratory Rate: 20 bpm SpO2: 96% Temperature: 36.6 (C) / 97.8 (F) Weight: 213 lbs Code: 25506-0 11/26/2016 Blood Pressure 1: 122/64 Code: 8480-6 BMI: 35.9 Code: 32645-2 Heart Rate 1: 72 bpm Height: 5'4" Code: 8302-2 Respiratory Rate: 20 bpm SpO2: 98% Temperature: 36.7 (C) / 98.1 (F) Weight: 209 lbs Code: 88221-1 07/14/2016 Blood Pressure 1: 146/70 Code: 8480-6 BMI: 37.4 Code: 28342-1 Heart Rate 1: 84 bpm Height: 5'4" Code: 8302-2 Respiratory Rate: 20 bpm SpO2: 98% Temperature: 36.8 (C) / 98.3 (F) Weight: 218 lbs Code: 64801-6 03/11/2016 Blood Pressure 1: 136/68 Code: 8480-6 BMI: 38.6 Code: 24207-3 Heart Rate 1: 84 bpm Height: 5'4" Code: 8302-2 Respiratory Rate: 20 bpm SpO2: 96% Temperature: 36.4 (C) / 97.6 (F) Weight: 225 lbs Code: 00577-3 11/06/2015 Blood Pressure 1: 124/62 Code: 8480-6 BMI: 37.8 Code: 19344-7 Heart Rate 1: 80 bpm Height: 5'4" Code: 8302-2 Respiratory Rate: 20 bpm Temperatu re: 36.7 (C) / 98.1 (F) Weight: 220 lbs Code: 00453-8 03/15/2015 Blood Pressure 1: 140/78 Code: 8480-6 BMI: 37.8 Code: 34231-0 Heart Rate 1: 68 bpm Height: 5'4" Code: 8302-2 Respiratory Rate: 20 bpm Temperatu re: 37.0 (C) / 98.6 (F) Weight: 220 lbs Code: 94069-9 03/01/2015 Blood Pressure 1: 142/78 Code: 8480-6 BMI: 37.8 Code: 39350-5 Heart Rate 1: 86 bpm Height: 5'4" Code: 8302-2 Respiratory Rate: 20 bpm SpO2: 95% Temperature: 36.7 (C) / 98.1 (F) Weight: 220 lbs Code: 95423-0 10/03/2014 Blood Pressure 1: 128/80 Code: 8480-6 BMI: 38.4 Code: 17830-7 Heart Rate 1: 80 bpm Height: 5'4" Code: 8302-2 Respiratory Rate: 20 bpm Temperatu re: 36.8 (C) / 98.2 (F) Weight: 224 lbs Code: 26633-8 02/08/2014 Blood Pressure 1: 158/86 Code: 8480-6 BMI: 38.8 Code: 20964-8 Heart Rate 1: 84 bpm Height: 5'4" Code: 8302-2 Respiratory Rate: 20 bpm Temperatu re: 36.7 (C) / 98.0 (F) Weight: 226 lbs Code: 31823-5 05/11/2013 Blood Pressure 1: 142/86 Code: 8480-6 BMI: 39.1 Code: 77975-7 Heart Rate 1: 80 bpm Height: 5'4" Code: 8302-2 Respiratory Rate: 20 bpm Temperatu re: 36.6 (C) / 97.8 (F) Weight: 228 lbs Code: 30649-5 01/18/2013 Blood Pressure 1: 136/82 Code: 8480-6 Heart Rate 1: 84 bpm Height: 5'4" Code: 8302-2 Respiratory Rate: 20 bpm Temperature: 36.7 (C) / 98.0 (F) Weight: Code: 55143-9 12/22/2012 Blood Pressure 1: 128/78 Code: 8480-6 Heart Rate 1: 84 bpm Respiratory Rate: 20 bpm SpO2: 98% Temperature: 36.6 (C) / 97.9 (F) We ight: Code: 03632-2 09/02/2012 Blood Pressure 1: 146/82 Code: 8480-6 Heart Rate 1: 92 bpm Respiratory Rate: 20 bpm Temperature: 37.0 (C) / 98.6 (F) Weight: 216 lbs Code : 26234-7 06/17/2012 Blood Pressure 1: 114/78 Code: 8480-6 BMI: 36.6 Code: 25629-0 Heart Rate 1: 100 bpm Height: 5'4" Code: 8302-2 Respiratory Rate: 20 bpm Temperatu re: 37.1 (C) / 98.8 (F) Weight: 213 lbs Code: 49439-5 03/15/2012 Blood Pressure 1: 122/70 Code: 8480-6 BMI: 36.9 Code: 40586-1 Heart Rate 1: 64 bpm Height: 5'4" Code: 8302-2 Temperature: 36.9 (C) / 98.4 (F) Weight: 215 lbs Code: 47676-5 12/17/2011 Blood Pressure 1: 138/80 Code: 8480-6 Heart Rate 1: 92 bpm Height: 5'4" Code: 8302-2 Respiratory Rate: 20 bpm Temperature: 36.9 (C) / 98.4 (F) Weight: Code: 96644-1 10/27/2011 Blood Pressure 1: 124/76 Code: 8480-6 BMI: 38.6 Code: 25717-9 Heart Rate 1: 80 bpm Height: 5'4" Code: 8302-2 Temperature: 36.3 (C) / 97.4 (F) Weight: 225 lbs Code: 45507-5 08/14/2011 Blood Pressure 1: 126/70 Code: 8480-6 Heart Rate 1: 88 bpm Respiratory Rate: 20 bpm Temperature: 36.7 (C) / 98.0 (F) Weight: Code: 69654- 7 07/09/2011 Blood Pressure 1: 128/80 Code: 8480-6 BMI: 37.9 Code: 50575-8 Heart Rate 1: 88 bpm Height: 5'4" Code: 8302-2 Respiratory Rate: 20 bpm Temperatu re: 36.8 (C) / 98.3 (F) Weight: 221 lbs Code: 64324-7 02/10/2011 Blood Pressure 1: 142/84 Code: 8480-6 Heart Rate 1: 68 bpm Height: Code: 8302-2 Temperature: 36.5 (C) / 97.7 (F) Weight: Code: 02635- 7 12/12/2010 Blood Pressure 1: 142/80 Code: 8480-6 Heart Rate 1: 88 bpm Temperature: 36.5 (C) / 97.7 (F) Weight: 220 lbs Code: 78258-6 09/18/2010 Blood Pressure 1: 142/78 Code: 8480-6 Heart Rate 1: 92 bpm Temperature: 36.8 (C) / 98.2 (F) Weight: 214 lbs Code: 33452-6 08/19/2010 Blood Pressure 1: 132/80 Code: 8480-6 Heart Rate 1: 96 bpm Temperature: 36.5 (C) / 97.7 (F) Weight: 211 lbs Code: 91573-9 06/05/2010 Blood Pressure 1: 126/82 Code: 8480-6 Heart Rate 1: 84 bpm Temperature: 36.9 (C) / 98.4 (F) Weight: 223 lbs Code: 74399-3 03/12/2010 Blood Pressure 1: 132/86 Code: 8480-6 Heart Rate 1: 82 bpm Temperature: 36.8 (C) / 98.2 (F) Weight: Code: 93383-1 09/19/2009 Blood Pressure 1: 150/94 Code: 8480-6 Heart Rate 1: 80 bpm Temperature: 36.6 (C) / 97.8 (F) Weight: 223 lbs Code: 10955-2 06/11/2009 BMI: 38.1 Code: 91826-4 Height: 5'4" Code: 8302- 2 Weight: 222 lbs Code: 74910-7 Functional Status No Functional Status data Reason For Visit Reason For Visit Effective Dates Notes follow up 09/25/2020 follow up 06/19/2020 follow up 05/14/2020 follow up 02/13/2020 follow up 11/08/2019 follow up 08/17/2019 follow up 07/20/2019 follow up 04/14/2019 well woman exam (65+ years) 01/05/2019 [facility] follow up 09/28/2018 follow up 06/28/2018 follow up 05/27/2018 follow up 04/06/2018 follow up 02/01/2018 follow up 01/04/2018 follow up 11/04/2017 abdominal pain 10/08/2017 follow up 09/03/2017 3wk fwup Medication Monitoring 08/13/2017 follow up 04/22/2017 follow up 03/11/2017 follow up 12/10/2016 [facility] fwup high blood pressure 11/26/2016 pain, limb 07/14/2016 follow up 03/11/2016 4mo fwup, needs mamm ogram order follow up 11/06/2015 well woman exam (40-65 years) 03/15/[address] normal mammogram- 2009 cough 03/01/2015 follow up 10/03/2014 high blood pressure 02/08/2014 Needs medications re filled arthritis 05/11/2013 cough 01/18/2013 cough 12/22/2012 depression 09/02/2012 has concerns of sleep apnea ~generic 06/17/2012 Check up since back surgery in February cough 03/15/2012 back pain 12/17/2011 swelling 10/27/2011 follow up 08/14/2011 1mo fwup back pain 07/09/2011 sore throat 02/10/2011 follow up 12/12/2010 3mo fwup follow up 09/18/2010 1mo fwup follow up 08/19/2010 abilify 2mg not help ing depression 06/05/2010 doesn't think cymbal ta is helping any longer chest congestion 03/12/2010 hip pain 09/19/2009 ~generic 06/11/2009 NODULES POPPED UP IN HANDS/JOINTS, 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, HX GANGLION CYST Encounters Encounter Performer Location Codes Date ([id number]) OFFICE/OUTPATIENT VISIT EST Diagnosis: Other malaise and fatigue[ICD10: R53.81] Diagnosis: Type 2 diabetes mellitus with hyperglycemia[ICD10: E11.65] Diagnosis: Essential hypertension[ICD10: I10] Diagnosis: Chronic major depressive disorder, recurrent episode[ICD10: F33.9] Khadijah [facility]IAMSON [facility] CPT-4: 41483 09/25/2020 ([id number]) OFFICE/OUTPATIENT VISIT EST Diagnosis: Major depressive disorder, recurrent, moderate[ICD10: F33.1] Diagnosis: Thyroid nodule[ICD10: E04.1] Khadijah WILLIAMSON [facility] CPT-4: 43137 06/19/2020 ([id number]) OFFICE/OUTPATIENT VISIT EST Diagnosis: Major depressive disorder, recurrent, moderate[ICD10: F33.1] Diagnosis: Essential hypertension[ICD10: I10] Diagnosis: Type 2 diabetes mellitus without complications[ICD10: E11.9] Khadijah [facility]IAMSON [facility] CPT-4: 59033 05/14/2020 ([id number]) OFFICE/OUTPATIENT VISIT EST Diagnosis: Insomnia[ICD10: G47.00] Diagnosis: Major depressive disorder, recurrent, moderate[ICD10: F33.1] Diagnosis: Essential (primary) hypertension[ICD10: I10] Diagnosis: Other spondylosis with radiculopathy, lumbosacral region[ICD10: M47.27] Diagnosis: PNEUMOCOCCAL VACCINE[ICD10: Z23] Khadijah WILLIAMSON [facility] CPT-4: 32878 02/13/2020 ([id number]) OFFICE/OUTPATIENT VISIT EST Diagnosis: Essential (primary) hypertension[ICD10: I10] Diagnosis: Type 2 diabetes mellitus with hyperglycemia[ICD10: E11.65] Diagnosis: Cough[ICD10: R05] Khadijah [facility]IAMSON [facility] CPT-4: 28473 11/08/2019 ([id number]) OFFICE/OUTPATIENT VISIT EST Diagnosis: Major depressive disorder, single episode, 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: F32.2] Diagnosis: Cystitis[ICD10: N30.90] Diagnosis: Sacroiliitis[ICD10: M46.1] Diagnosis: COUGH[ICD10: R05] Khadijah WILLIAMSON [facility] CPT-4: 08085 08/17/2019 ([id number]) OFFICE/OUTPATIENT VISIT EST Diagnosis: Essential (primary) hypertension[ICD10: I10] Diagnosis: Type 2 diabetes mellitus without complications[ICD10: E11.9] Diagnosis: Chronic major depressive disorder, recurrent episode[ICD10: F33.9] Diagnosis: COUGH[ICD10: R05] Khadijah Chandlerizabela KHADIJAH CaroleJackie TONINAIF [employer] [facility] CPT-4: 67351 07/20/2019 ([id number]) OFFICE/OUTPATIENT VISIT EST Diagnosis: Type 2 diabetes mellitus without complications[ICD10: E11.9] Diagnosis: Essential (primary) hypertension[ICD10: I10] Diagnosis: Hypothyroidism, unspecified[ICD10: E03.9] Diagnosis: Falls[ICD10: W19.XXXA] Diagnosis: Skin tag[ICD10: L91.8] Diagnosis: Other spondylosis with radiculopathy, lumbosacral region[ICD10: M47.27] Khadijah TUCKER CaroleJackie TONINAIF [employer] [facility] CPT-4: 26065 04/14/2019 ([id number]) NURSE/OUTPATIENT VISIT EST Diagnosis: FLU VACCINE[ICD10: Z23] Diagnosis: PNEUMOCOCCAL VACCINE[ICD10: Z23] Diagnosis: Encounter for general adult medical examination without abnormal findings[ICD10: Z00.00] Diagnosis: Type 2 diabetes mellitus without complications[ICD10: E11.9] Diagnosis: Essential (primary) hypertension[ICD10: I10] Diagnosis: Mixed hyperlipidemia[ICD10: E78.2] Diagnosis: Cervicalgia[ICD10: M54.2] Khadijah Tinoco TONI HAWKINS [employer] [facility] CPT-4: 74747 01/05/2019 ([id number]) OFFICE/OUTPATIENT VISIT EST Diagnosis: Type 2 diabetes mellitus without complications[ICD10: E11.9] Diagnosis: Essential (primary) hypertension[ICD10: I10] Diagnosis: Pain in left shoulder[ICD10: M25.512] Diagnosis: Pain in left elbow[ICD10: M25.522] Diagnosis: Pleurodynia[ICD10: R07.81] Diagnosis: Epigastric pain[ICD10: R10.13] Khadijah TUCKER Carole Jackie TONIFreespee [employer] [facility] CPT-4: 83406 09/28/2018 ([id number]) OFFICE/OUTPATIENT VISIT EST Diagnosis: Essential (primary) hypertension[ICD10: I10] Diagnosis: Type 2 diabetes mellitus without complications[ICD10: E11.9] Diagnosis: Other spondylosis with radiculopathy, lumbosacral region[ICD10: M47.27] Khadijah WILLIAMSON DO [facility] CPT-4: 86536 06/28/2018 ([id number]) OFFICE/OUTPATIENT VISIT EST Diagnosis: Other spondylosis with radiculopathy, lumbosacral region[ICD10: M47.27] Khadijah WILLIAMSON [employer] [facility] CPT-4: 44086 05/27/2018 ([id number]) OFFICE/OUTPATIENT VISIT EST Diagnosis: Type 2 diabetes mellitus without complications[ICD10: E11.9] Diagnosis: Essential (primary) hypertension[ICD10: I10] Diagnosis: Mixed hyperlipidemia[ICD10: E78.2] Diagnosis: Other spondylosis with radiculopathy, lumbosacral region[ICD10: M47.27] Khadijah WILLIAMSON [employer] [facility] CPT-4: 20848 04/06/2018 ([id number]) OFFICE/OUTPATIENT VISIT EST Diagnosis: Diarrhea, unspecified[ICD10: R19.7] Diagnosis: Other spondylosis with radiculopathy, lumbosacral region[ICD10: M47.27] Khadijah WILLIAMSON [employer] [facility] CPT-4: 33766 02/01/2018 ([id number]) OFFICE/OUTPATIENT VISIT EST Diagnosis: Diarrhea, unspecified[ICD10: R19.7] Diagnosis: Other spondylosis with radiculopathy, lumbosacral region[ICD10: M47.27] Khadijah WILLIAMSON [employer] [facility] CPT-4: 09878 01/04/2018 ([id number]) OFFICE/OUTPATIENT VISIT EST Diagnosis: Other spondylosis with radiculopathy, lumbosacral region[ICD10: M47.27] Diagnosis: Epigastric pain[ICD10: R10.13] Khadijah WILLIAMSON [employer] [facility] CPT-4: 16948 11/04/2017 ([id number]) OFFICE/OUTPATIENT VISIT EST Diagnosis: Epigastric pain[ICD10: R10.13] Khadijah WILLIAMSON [employer] [facility] CPT-4: 18295 10/08/2017 ([id number]) OFFICE/OUTPATIENT VISIT EST Diagnosis: Major depressive disorder, recurrent, moderate[ICD10: F33.1] Khadijah WILLIAMSON [employer] [facility] CPT-4: 90254 09/03/2017 ([id number]) OFFICE/OUTPATIENT VISIT EST Diagnosis: URI, ACUTE[ICD10: J06.9] Diagnosis: Type 2 diabetes mellitus without complications[ICD10: E11.9] Diagnosis: Major depressive disorder, single episode, 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: F32.2] Diagnosis: Other spondylosis with radiculopathy, lumbosacral region[ICD10: M47.27] Khadijah WILLIAMSON [employer] [facility] CPT-4: 84111 08/13/2017 OFFICE/OUTPATIENT VISIT EST Diagnosis: Type 2 diabetes mellitus without complications[ICD10: E11.9] Diagnosis: Essential (primary) hypertension[ICD10: I10] Diagnosis: Other spondylosis with radiculopathy, lumbosacral region[ICD10: M47.27] Diagnosis: Cervicalgia[ICD10: M54.2] Khadijah LEE [employer] [facility] CPT-4: 63772 04/22/2017 ([id number]) OFFICE/OUTPATIENT VISIT EST Diagnosis: Type 2 diabetes mellitus without complications[ICD10: E11.9] Diagnosis: Essential (primary) hypertension[ICD10: I10] Diagnosis: Other spondylosis with radiculopathy, lumbosacral region[ICD10: M47.27] Diagnosis: Localized enlarged lymph nodes[ICD10: R59.0] Khadijah WILLIAMSON [employer] [facility] CPT-4: 53421 03/11/2017 ([id number]) OFFICE/OUTPATIENT VISIT EST Diagnosis: Infectious gastroenteritis and colitis, unspecified[ICD10: A09] Diagnosis: Other spondylosis with radiculopathy, lumbosacral region[ICD10: M47.27] Khadijah WILL[facility]SON [facility] CPT-4: 25881 12/10/2016 ([id number]) PREV VISIT EST AGE 40-64 Diagnosis: Encounter for general adult medical examination without abnormal findings[ICD10: Z00.00] Diagnosis: Type 2 diabetes mellitus without complications[ICD10: E11.9] Diagnosis: Hypothyroidism, unspecified[ICD10: E03.9] Diagnosis: Mixed hyperlipidemia[ICD10: E78.2] Diagnosis: Essential (primary) hypertension[ICD10: I10] Diagnosis: Other spondylosis with radiculopathy, lumbosacral region[ICD10: M47.27] Khadijah WILLIAMSON [employer] [facility] CPT-4: 41875 11/26/2016 ([id number]) OFFICE/OUTPATIENT VISIT EST Diagnosis: Type 2 diabetes mellitus without complications[ICD10: E11.9] Diagnosis: Mixed hyperlipidemia[ICD10: E78.2] Diagnosis: Essential (primary) hypertension[ICD10: I10] Diagnosis: Hypothyroidism, unspecified[ICD10: E03.9] Khadijah WILLIAMSON [employer] [facility] CPT-4: 87775 03/11/2016 OFFICE/OUTPATIENT VISIT EST Diagnosis: Type 2 diabetes mellitus without complications[ICD10: E11.9] Diagnosis: Essential (primary) hypertension[ICD10: I10] Diagnosis: Mixed hyperlipidemia[ICD10: E78.2] Diagnosis: 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] Khadijah WILLIAMSON [employer] CPT-4: 65719 11/06/2015 ([id number]) PREV VISIT EST AGE 40-64 Diagnosis: Encounter for general adult medical examination without abnormal findings[ICD10: Z00.00] Diagnosis: Acute bronchitis, unspecified[ICD10: J20.9] Diagnosis: Type 2 diabetes mellitus with hyperglycemia[ICD10: E11.65] Diagnosis: Hypothyroidism, unspecified[ICD10: E03.9] Diagnosis: Essential (primary) hypertension[ICD10: I10] Khadijah WILLIAMSON [employer] CPT-4: 34919 03/15/2015 OFFICE/OUTPATIENT VISIT EST Diagnosis: Acute bronchitis, unspecified[ICD10: J20.9] Lety England KHADIJAH WILLIAMSON [employer] [facility] CPT-4: 19680 03/01/2015 OFFICE/OUTPATIENT VISIT EST Diagnosis: DM W/O COMPLICATION TYPE II[ICD9: 250.00] Diagnosis: HYPOTHYROIDISM[ICD9: 244.9] Diagnosis: HYPERTENSION[ICD9: 401.9] Khadijah LEE [facility] CPT-4: 42418 10/03/2014 ([id number]) OFFICE/OUTPATIENT VISIT EST Diagnosis: DM W/O COMPLICATION TYPE II[ICD9: 250.00] Diagnosis: HYPERTENSION[ICD9: 401.9] Diagnosis: DEPRESSIVE DISORDER NEC[ICD9: 311] Khadijah PRADO AK Scan•JourJackie [facility] CPT-4: 70364 02/08/2014 ([id number]) OFFICE/OUTPATIENT VISIT EST Diagnosis: OSTEOARTHRISIS MULTI SITES[ICD9: 715.98] Diagnosis: LUMB/LUMBOSAC DISC DEGEN[ICD9: 722.52] Diagnosis: DM W/O COMPLICATION TYPE II[ICD9: 250.00] Khadijah [facility] CPT-4: 04557 05/11/2013 ([id number]) OFFICE/OUTPATIENT VISIT EST Diagnosis: SINUSITIS, ACUTE[ICD9: 461.9] Diagnosis: BRONCHITIS, ACUTE[ICD9: 466.0] Khadijah [facility] CPT-4: 03478 01/18/2013 ([id number]) OFFICE/OUTPATIENT VISIT EST Diagnosis: SINUSITIS, ACUTE[ICD9: 461.9] Diagnosis: BRONCHITIS, ACUTE[ICD9: 466.0] Khadijah WILLIAMSON [facility] CPT-4: 01050 12/22/2012 ([id number]) OFFICE/OUTPATIENT VISIT EST Diagnosis: MALAISE AND FATIGUE[ICD9: 780.79] Diagnosis: Apnea[ICD9: 786.03] Diagnosis: DEPRESSIVE DISORDER NEC[ICD9: 311] Khadijah CRUZ Scan•JourJackie [facility] CPT-4: 15044 09/02/2012 ([id number]) OFFICE/OUTPATIENT VISIT EST Diagnosis: DM W/O COMPLICATION TYPE II, UNCONTROLLED[ICD9: 250.02] Diagnosis: MALAISE AND FATIGUE[ICD9: 780.79] Diagnosis: HYPOTHYROIDISM[ICD9: 244.9] Diagnosis: HYPERTENSION[ICD9: 401.9] Diagnosis: Tinea cruris[ICD9: 110.3] Khadijah LEE [facility] CPT-4: 99836 06/17/2012 OFFICE/OUTPATIENT VISIT EST Diagnosis: COUGH[ICD9: 786.2] Khadijah WILLIAMSON [facility] CPT-4: 91234 03/15/2012 OFFICE/OUTPATIENT VISIT EST Diagnosis: LUMB/LUMBOSAC DISC DEGEN[ICD9: 722.52] Diagnosis: Radiculopathy[ICD9: 729.2] Khadijah [facility] CPT-4: 63096 12/17/2011 ([id number]) OFFICE/OUTPATIENT VISIT EST Diagnosis: EDEMA[ICD9: 782.3] Diagnosis: ALLERGIC RHINITIS[ICD9: 477.9] Khadijah Lam Jackie [facility] CPT-4: 19072 10/27/2011 ([id number]) OFFICE/OUTPATIENT VISIT EST Diagnosis: DM W/O COMPLICATION TYPE II, UNCONTROLLED[ICD9: 250.02] Diagnosis: ANEMIA IRON DEFICIENCY[ICD9: 280.9] Diagnosis: LUMB/LUMBOSAC DISC DEGEN[ICD9: 722.52] Diagnosis: NEURALGIA/NEURITIS[ICD9: 729.2] Khadijah LamJackie MANDIE [facility] CPT-4: 44680 08/14/2011 ([id number]) OFFICE/OUTPATIENT VISIT EST Diagnosis: LUMB/LUMBOSAC DISC DEGEN[ICD9: 722.52] Diagnosis: Radiculopathy[ICD9: 729.2] Diagnosis: DM W/O COMPLICATION TYPE II[ICD9: 250.00] Khadijah LamJackie [facility] CPT-4: 15199 07/09/2011 OFFICE/OUTPATIENT VISIT EST Diagnosis: SINUSITIS, ACUTE[ICD9: 461.9] Diagnosis: COUGH[ICD9: 786.2] Khadijah SABALINE [facility]ie [facility] CPT-[facility]: 82703 02/10/2011 OFFICE/OUTPATIENT VISIT EST Diagnosis: DM W/O COMPLICATION TYPE II[ICD9: 250.00] Diagnosis: MALAISE AND FATIGUE[ICD9: 780.79] Diagnosis: DEPRESSIVE DISORDER NEC[ICD9: 311] Diagnosis: BRONCHITIS, ACUTE[ICD9: 466.0] Khadijah TUCKER Carole Jackie TONINDER DO [facility] CPT-4: 95079 12/12/2010 OFFICE/OUTPATIENT VISIT EST Khadijah Rameshizabela KHADIJAH CaroleJackie TONI NDER DO [facility] CPT- 4: 17306 09/18/2010 ([id number]) OFFICE/OUTPATIENT VISIT EST Khadijah Chandlerizabela MARTINES USTERLING S. ORENDER DO [facility] CPT-4: 84746 08/19/2010 ([id number]) OFFICE/OUTPATIENT VISIT EST Khadijah Chandlerizabela NAIK S. ORENDER DO [facility] CPT-4: 04404 06/05/2010 ([id number]) OFFICE/OUTPATIENT VISIT, EST Khadijah MAYES JONO SJackie ORENDER DO [facility] CPT-4: 60327 03/12/2010 ([id number]) OFFICE/OUTPATIENT VISIT, EST Khadijah Chandlerizabela DE LA CRUZ SJackie ORENDER DO [facility] CPT-4: 58727 09/19/2009 ([id number]) OFFICE/OUTPATIENT VISIT, EST Khadijah Orenaifizabela DE LA CRUZ SJackie ORENDER DO [facility] CPT-4: 46016 06/11/2009 Plan of Care Planned Activity Notes Codes Status Date Visit Diagnosis Plan: Other malaise and fatigue Discus josette: Multifactorial ICD-9 : 780.79 ICD-10 : R53.81 09/25/2020 Visit Diagnosis Plan: Chronic major depressive disorde r, recurrent episode Discussion: Stable on citalopram ICD-9 : 296.30 ICD-10 : F33.9 09/25/2020 Visit Diagnosis Plan: Essential hypertension Discussio n: Stable ICD-9 : 401.9 ICD-10 : I10 09/25/2020 Visit Diagnosis Plan: Type 2 diabetes mellitus with hy perglycemia Discussion: Lab discussed Accuchecks daily Continue off meds Check CMP and HbA1C in 3mos then fwup ICD-9 : 250.02 ICD-10 : E11.65 09/25/2020 Appointment: Khadijah Williamson [facility]el: [facility] [facility] 09/25/2020 Visit Diagnosis Plan: Thyroid nodule Discussion: Christiane Evans in May--had biopsy done ICD-9 : 241.0 ICD-10 : E04.1 06/19/2020 Visit Diagnosis Plan: Major depressive disorder, recur rent, moderate Discussion: Continue citalopram and Wellbutrin ICD-9 : 296.32 ICD-10 : F33.1 06/19/2020 Appointment: Khadijah Williamson WPtel: [facility] US FOLLOW UP 06/19/2020 Visit Diagnosis Plan: Major depressive disorder, recur rent, moderate Discussion: Continue buproprion Add citalopram 10mg daily Recheck 4 weeks ICD-9 : 296.32 ICD-10 : F33.1 05/14/2020 Visit Diagnosis Plan: Type 2 diabetes mellitus without complications Discussion: Lab discussed Accuchecks daily Continue current meds Check CMP and HbA1C in 3mos then fwup ICD-9 : 250.00 ICD-10 : E11.9 05/14/2020 Visit Diagnosis Plan: Essential hypertension Discussio n: Stable ICD-9 : 401.9 ICD-10 : I10 05/14/2020 Appointment: Khadijah Williamson WPtel: [address] [place], [place] [address] [place] FOLLOW UP 05/14/2020 Patient Education: citalopram- [employer] C[employer]on [id number] https://www.[email or web address]/samplemd/resources/getResource/61/[email or web address] Completed 05/14/2020 Visit Diagnosis Plan: Essential (primary) hypertension Discussion: Stable Lab discussed Had flu shot Pneumovax given Recheck lab with fwup in 3mos ICD-9 : 401.9 ICD-10 : I10 02/13/2020 Visit Diagnosis Plan: Insomnia Discussion: Trial of el avil 10-20mg q PM Call in 1 week on how doing ICD-9 : 780.52 ICD-10 : G47.00 02/13/2020 Visit Diagnosis Plan: Other spondylosis with radiculop athy, lumbosacral region Discussion: Recently got a TENs unit and encouraged to use routinely ICD-9 : 722.52 ICD-10 : M47.27 02/13/2020 Visit Diagnosis Plan: Major depressive disorder, recur rent, moderate Discussion: Continue Wellbutrin ICD-9 : 296.32 ICD-10 : F33.1 02/13/2020 Appointment: Khadijah Williamson WPtel: [address] [place], [place] [id number] [place] FOLLOW UP 02/13/2020 Patient Education: amitriptyline- [employer] Coupon [id number] [email or web address]/[email or web address]/resources/getResource/61/[email or web address] Completed 02/13/2020 Appointment: Khadijah Williamson WPtel: [address] [place], [place] [phone] US RESCHEDULED 02/02/2020 Visit Diagnosis Plan: Essential (primary) hypertension Discussion: Stable ICD-9 : 401.9 ICD-10 : I10 11/08/2019 Visit Diagnosis Plan: Type 2 diabetes mellitus with hy perglycemia Discussion: Lab discussed Accuchecks daily Continue current meds Check CMP and HbA1C in 3mos then fwup ICD-9 : 250.02 ICD-10 : E11.65 11/08/2019 Visit Diagnosis Plan: Cough Discussion: Had PFT done l ast week ICD-9 : 786.2 ICD-10 : R05 11/08/2019 Appointment: Khadijah Williamson WPtel: [address] [place], [place] [phone] US FOLLOW UP 11/08/2019 Care Plan: COMPREH[place] : 475[address]-9 Pending 10/31/2019 Care Plan: LIPID PANEL LOINC : 02739-2 Pending 10/31/2019 Care Plan: A1C HPLC LOINC : 95882-5 Pending 10/31/2019 Care Plan: COMPLETE CBC W/AUTO DIFF WBC LOINC : 22479-7 Pending 10/31/2019 Visit Diagnosis Plan: Sacroiliitis Discussion: Discuss ed gabapentin retrial ICD-9 : 720.2 ICD-10 : M46.1 08/17/2019 Visit Diagnosis Plan: COUGH Discussion: Check CXR ICD-9 : 786.2 ICD-10 : R05 08/17/2019 Visit Diagnosis Plan: Major depressive d isorder, single episode, severe without psychotic features Discussion: Increase Wellbutrin XL to 30 0mg daily Recheck 1 month ICD-9 : 311 ICD-10 : F32.2 08/17/2019 Visit Diagnosis Plan: Cystitis Discussion: UA negative ICD-9 : 595.9 ICD-10 : N30.90 08/17/2019 Appointment: Khadijah Williamson WPtel: [phone] [facility] FOLLOW UP 08/17/2019 Patient Education: Wellbutrin XL- [employer] Coupon [id number] https://www.[email or web address]/resources/getResource/61/[email or web address] Completed 08/17/2019 Care Plan: CHEST X-RAY 2VW FRONTAL&LATL LOINC : 34412-9 Pending 08/17/2019 Visit Diagnosis Plan: Type 2 diabetes mellitus without complications Discussion: Lab discussed Accuchecks daily Continue off meds Check CMP and HbA1C in 3mos then fwup ICD-9 : 250.00 ICD-10 : E11.9 07/20/2019 Visit Diagnosis Plan: Chronic major depressive disorde r, recurrent episode Discussion: Change duloxetine to Wellbutrin XL 150mg po q AM Follow Up: 4 weeks ICD-9 : 296.30 ICD-10 : F33.9 07/20/2019 Visit Diagnosis Plan: Essential (primary) hypertension Discussion: Stable on meds ICD-9 : 401.9 ICD-10 : I10 07/20/2019 Visit Diagnosis Plan: COUGH Discussion: Cover for sinu s etiology with Cefdinir If persists then will need imaging/further workup Call in 2 weeks with cough update ICD-9 : 786.2 ICD-10 : R05 07/20/2019 Appointment: Khadijah Williamson WPtel: [phone] [facility] US FOLLOW UP 07/20/2019 Patient Education: Wellbutrin XL- [employer] Coupon 11 [id number] https://www.[employer]/samplemd/resources/getResource/61/[email or web address] Completed 07/20/2019 Patient Education: cefdinir- [employer] Coupon [id number] https://www.[employer]/resources/getResource/61/[email or web address] Completed 07/20/2019 Visit Diagnosis Plan: Essential (primary) hypertension Discussion: Stable ICD-9 : 401.9 ICD-10 : I10 04/14/2019 Visit Diagnosis Plan: Skin tag Discussion: Will return for removal since is getting irritated on necklaces/shirts ICD-9 : 701.9 ICD-10 : L91.8 04/14/2019 Visit Diagnosis Plan: Type 2 diabetes mellitus without complications Discussion: Lab discussed Accuchecks daily Continue current meds Check CMP and HbA1C in 3mos then fwup ICD-9 : 250.00 ICD-10 : E11.9 04/14/2019 Visit Diagnosis Plan: Other spondylosis with radiculop athy, lumbosacral region Discussion: Discussed TENs unit/accupuncture ICD-9 : 722.52 ICD-10 : M47.27 04/14/2019 Appointment: Khadijah Williamson WPtel: [facility] [facility] 04/14/2019 Visit Diagnosis Plan: Type 2 diabetes mellitus without complications Discussion: Lab discussed Accuchecks daily Continue current meds Check CMP and HbA1C in 3mos then fwup ICD-9 : 250.00 ICD-10 : E11.9 01/05/2019 Visit Diagnosis Plan: Cervicalgia Discussion: Sue d x-ray results ICD-9 : 723.1 ICD-10 : M54.2 01/05/2019 Visit Diagnosis Plan: Encounter for [facility] adult medical examination without abnormal findings Discussion: Mediterranean diet Combinati on of cardio and weight bearing exercise Flu and Prevnar 13 given Bone Density ordered Recommend Shingrix ICD-9 : V70.9 ICD-10 : Z00.00 01/05/2019 Appointment: Khadijah Williamson [facility]Ptel[facility] [phone] [facility] [facility] mo WELCOME TO MEDICARE 01/05/2019 Care Plan: X-RAY EXAM OF SHOULDER Left Shoulder x-rays LOINC : 69442-5 Pending 09/30/2018 Visit Diagnosis Plan: Type 2 diabetes mellitus without complications Discussion: Lab discussed Accuchecks daily Continue off meds Check CMP and HbA1C in 3mos then fwup ICD-9 : 250.00 ICD-10 : E11.9 09/28/2018 Visit Diagnosis Plan: Pain in left elbow Discussion: C ontusion--monitor ICD-9 : 719.42 ICD-10 : M25.522 09/28/2018 Visit Diagnosis Plan: Epigastric pain Discussion: Stop Celebrex If persists then will need EGD but wants to wait until after vacation in October ICD-9 : 789.06 ICD-10 : R10.13 09/28/2018 Visit Diagnosis Plan: Pain in left shoulder Discussion : Likely just sore/bruised from fall ICD-9 : 719.41 ICD-10 : M25.512 09/28/2018 Visit Diagnosis Plan: Essential (primary) hypertension Discussion: Stable ICD-9 : 401.9 ICD-10 : I10 09/28/2018 Visit Diagnosis Plan: Pleurodynia Discussion: Deep deepti aths--discussed may be rib fracture so pain control and monitor for signs of pneumonia Tramadol and Oxycodone rx given to use prn--do not use together ICD-9 : 786.50 ICD-10 : R07.81 09/28/2018 Appointment: Khadijah Williamson [facility]Ptel[facility] [phone] [facility] [facility] FOLLOW UP 09/28/2018 Visit Diagnosis Plan: Type 2 diabetes mellitus without complications Discussion: Lab discussed Accuchecks daily Continue current meds Check CMP and HbA1C in 3mos then fwup ICD-9 : 250.00 ICD-10 : E11.9 06/28/2018 Visit Diagnosis Plan: Essential (primary) hypertension Discussion: Stable ICD-9 : 401.9 ICD-10 : I10 06/28/2018 Visit Diagnosis Plan: Other spondylosis with radiculop athy, lumbosacral region Discussion: Continue celebrex and flexeril and topical ICD-9 : 722.52 ICD-10 : M47.27 06/28/2018 Appointment: Khadijah Williamson WPtel: [facility] US FOLLOW UP 06/28/2018 Visit Diagnosis Plan: Other spondylosis with radiculop athy, lumbosacral region Discussion: Trial of Celebrex 200mg po BID Recheck 4 weeks Discussed repeat SI joint injection Follow Up: 4 weeks ICD-9 : 722.52 ICD-10 : M47.27 05/27/2018 Appointment: Khadijah Williamson WPtel: [address] [place] [address] US FOLLOW UP 05/27/2018 Visit Diagnosis Plan: Other spondylosis with radiculop athy, lumbosacral region Discussion: Start PT ICD-9 : 722.52 ICD-10 : M47.27 04/06/2018 Visit Diagnosis Plan: Mixed hyperlipidemia Discussion: Has not tolerated any statins ICD-9 : 272.4 ICD-10 : E78.2 04/06/2018 Visit Diagnosis Plan: Essential (primary) hypertension Discussion: Stable ICD-9 : 401.9 ICD-10 : I10 04/06/2018 Visit Diagnosis Plan: Type 2 diabetes mellitus without complications Discussion: Lab discussed Accuchecks daily Change Januvia to 50mg daily Follow Up: 3 months ICD-9 : 250.00 ICD-10 : E11.9 04/06/2018 Appointment: Khadijah Williamson WPtel: [facility] US FOLLOW UP 04/06/2018 Visit Diagnosis Plan: Diarrhea, unspecified Recommenda tions: Had colonoscopy this summer Will check stool studies Consider xifaxin vs colestid pending stool study results ICD-9 : 787.91 ICD-10 : R19.7 02/01/2018 Visit Diagnosis Plan: Other spondylosis with radiculop athy, lumbosacral region Discussion: Has done PT Just had a right SI joing injection last week Will do TENS unit Also discussed retrying traction and possible home traction unit Follow Up: 1 months ICD-9 : 722.52 ICD-10 : M47.27 02/01/2018 Appointment: Khadijah Williamsontel: [address] [place], [place] [phone] [place] FOLLOW UP 02/01/2018 Visit Diagnosis Plan: Diarrhea, unspecified Discussion : Hold metformin Januvia 50mg daily Notify if worsens or persists Recheck 4 weeks ICD-9 : 787.91 ICD-10 : R19.7 01/04/2018 Visit Diagnosis Plan: Other spondylosis with radiculop athy, lumbosacral region Discussion: Discussed trying SI joint injection vs facet joint injections as next option ICD-9 : 722.52 ICD-10 : M47.27 01/04/2018 Appointment: Khadijah Williamson WPtel: [address] [place], [place] [phone] [place] FOLLOW UP 01/04/2018 Patient Education: Patient Medication Summary Completed 01/04/2018 Visit Diagnosis Plan: Epigastric pain Discussion: Rest art Dexilant 60mg daily for next 6 weeks then go back to omeprazole 20mg daily Recheck 2mos ICD-9 : 789.06 ICD-10 : R10.13 11/04/2017 Visit Diagnosis Plan: Other spondylosis with radiculop athy, lumbosacral region Discussion: Update MRI L/S spine Schedule with Dr. Oneill for epidural Has done PT ICD-9 : 722.52 ICD-10 : M47.27 11/04/2017 Appointment: Khadijah Williamson WPtel: [address] [place], [place] [phone] [place] FOLLOW UP 11/04/2017 Patient Education: Patient Medication Summary Completed 11/04/2017 Care Plan: Referral Order SNOMED-CT : [id number] Pending 11/04/2017 Care Plan: MRI LUMBAR SPINE W/DYE LOINC : 80059-5 Pending 11/04/2017 Visit Diagnosis Plan: Epigastric pain Discussion: Stop meloxicam No NSAIDs [place] diet DC omeprazole Dexilant 60mg po BID Follow Up: 2 weeks ICD-9 : 789.06 ICD-10 : R10.13 10/08/2017 Appointment: Khadijah Williamson WPtel: [address] [place] [address] ACUTE ILLNESS 10/08/2017 Patient Education: Patient Medication Summary Completed 10/08/2017 Visit Diagnosis Plan: Major depressive disorder, recur rent, moderate Discussion: Increase cymbalta to 60mg daily Follow Up: 2 months ICD-9 : 296.32 ICD-10 : F33.1 09/03/2017 Appointment: Khadijah Williamson WPtel: [address] [place] [address] FOLLOW UP 09/03/2017 Patient Education: Patient Medication Summary Completed 09/03/2017 Appointment: Khadijah Williamson WPtel: [address] [place] [address] RESCHEDULED 08/31/2017 Visit Diagnosis Plan: URI, ACUTE Discussion: Prednison e taper ICD-9 : 465.9 ICD-10 : J06.9 08/13/2017 Visit Diagnosis Plan: Major depressive d isorder, single episode, severe without psychotic features Discussion: Start cymbalta 30mg daily Follow Up: 3 weeks ICD-9 : 311 ICD-10 : F32.2 08/13/2017 Visit Diagnosis Plan: Other spondylosis with radiculop athy, lumbosacral region Discussion: Msy need updated MRI of L/S spine ICD-9 : 722.52 ICD-10 : M47.27 08/13/2017 Visit Diagnosis Plan: Type 2 diabetes mellitus without complications Discussion: Lab discussed Accuchecks daily Change janumet XR to metformin 1000mg daily ICD-9 : 250.00 ICD-10 : E11.9 08/13/2017 Appointment: Khadijah Williamson WPtel: [address] [place], [place] [phone] [place] FOLLOW UP 08/13/2017 Patient Education: Patient Medication Summary Completed 08/13/2017 Patient Education: Patient Medication Summary Completed 06/01/2017 Care Plan: MRI NECK SPINE W/O DYE [facility] : 14055-9 Pending 06/01/2017 Visit Diagnosis Plan: Essential (primary) hypertension Discussion: Stable ICD-9 : 401.9 ICD-10 : I10 04/22/2017 Visit Diagnosis Plan: Other spondylosis with radiculop athy, lumbosacral region Discussion: Increase lyrica to 75mg po BID May need updated CT scan of lumbar spine ICD-9 : 722.52 ICD-10 : M47.27 04/22/2017 Visit Diagnosis Plan: Cervicalgia Discussion: Check ce rvical spine x-ray Discussed change in muscle relaxer as well ICD-9 : 723.1 ICD-10 : M54.2 04/22/2017 Visit Diagnosis Plan: Type 2 diabetes mellitus without complications Discussion: Lab discussed Accuchecks daily Decrease Janumet XR to 50/1000mg daily Recheck lab with fwup in 3mos ICD-9 : 250.00 ICD-10 : E11.9 04/22/2017 Appointment: Khadijah Williamson WPtel: [phone] [phone] [place] FOLLOW UP 04/22/2017 Patient Education: Patient Medication Summary Completed 04/22/2017 Patient Education: Lyrica - 18+ - No [place] Completed 04/22/2017 Visit Diagnosis Plan: Localized enlarged lymph nodes D iscussion: Check thyroid/neck US May need CT of neck ICD-9 : 785.6 ICD-10 : R59.0 03/11/2017 Visit Diagnosis Plan: Other spondylosis with radiculop athy, lumbosacral region Discussion: Restart lyrica at 75mg daily Follow Up: 1 months ICD-9 : 722.52 ICD-10 : M47.27 03/11/2017 Visit Diagnosis Plan: Essential (primary) hypertension Discussion: Increase cozaar to 100mg daily ICD-9 : 401.9 ICD-10 : I10 03/11/2017 Visit Diagnosis Plan: Type 2 diabetes mellitus without complications Discussion: Check lab and fwup in 1month ICD-9 : 250.00 ICD-10 : E11.9 03/11/2017 Appointment: Khadijah Williamson WPtel: [phone] [facility] [place] FOLLOW UP 03/11/2017 Patient Education: Patient Medication Summary Completed 03/11/2017 Care Plan: US EXAM OF HEAD AND NECK LOIN C : 77454-2 Pending 03/11/2017 Visit Diagnosis Plan: Infectious gastroenteritis and c olitis, unspecified Discussion: Resolved ICD-9 : 558.9 ICD-10 : A09 12/10/2016 Visit Diagnosis Plan: Other spondylosis with radiculop athy, lumbosacral region Discussion: Continue mobic and lyrica Call in 1month on how doing ICD-9 : 722.52 ICD-10 : M47.27 12/10/2016 Appointment: Khadijah Williamson [facility]Ptel[facility] [phone] [facility] [facility] Up 12/10/2016 Patient Education: Patient Medication Summary Completed 12/10/2016 Visit Diagnosis Plan: Other spondylosis with radiculop athy, lumbosacral region Discussion: Trial of lyrica 75mg q HS Call in 2 weeks on how doing Discussed repeat PT vs epidural but patient states would need to be after football season ICD-9 : 722.52 ICD-10 : M47.27 11/26/2016 Visit Diagnosis Plan: Encounter for [facility] adult medical examination without abnormal findings Discussion: Update fasting lab ICD-9 : V70.9 ICD-10 : Z00.00 11/26/2016 Visit Diagnosis Plan: Type 2 diabetes mellitus without complications Discussion: Accuchecks daily Check HbA1C Follow Up: 3 months ICD-9 : 250.00 ICD-10 : E11.9 11/26/2016 Visit Diagnosis Plan: Essential (primary) hypertension Discussion: Stable ICD-9 : 401.9 ICD-10 : I10 11/26/2016 Appointment: Khadijah Williamson WPtel: [phone] [facility] Annual Well Visit 11/26/2016 Patient Education: Patient Medication Summary Completed 11/26/2016 Visit Diagnosis Plan: Trochanteric bursitis, left hip Discussion: Injection as above Start IT band stretches Call in 1 week on how doing If persists then will likely do PT ICD-9 : 726.5 ICD-10 : M70.62 07/14/2016 Appointment: Khadijah Williamson WPtel: [phone] [facility] 07/10 confirmed `sl ESTABLISHED PATIENT 7 Patient Education: Patient Medication Summary Completed 07/14/2016 Visit Plan: Update fasting lab Lots of s tiki with family illnesses Accuchecks daily Retiring at the end of this week 03/11/2016 Appointment: Khadijah Williamson WPtel: [address] [place], [place] [phone] 03/11 confirmed~sl FOLLOW UP 03/11/2016 Patient Education: Patient Medication Summary Completed 03/11/2016 Patient Education: Janumet XR - 18-64 - TAHMINA - No CA [place] Completed 03/11/2016 Patient Education: [facility] - Saving AutoInj - Citalopram HBR - 18-64 - Dynamic Portal ID Completed 03/11/2016 Patient Education: [facility] - Saving AutoInj - 18-64 - Dynamic Jass l ID Completed 03/11/2016 Visit Plan: Lab discussed Accuchecks mart ly Proceed with updated dilated eye exam See Dr. Aviles for veins 11/06/2015 Appointment: Khadijah Williamson WPtel: [address] [place], [place] [phone] 11/05 confirmed ~sl FOLLOW UP 11/06/2015 Patient Education: Patient Medication Summary Completed 11/06/2015 Patient Education: [facility] - Saving AutoInj - 18-64 - Dynamic Jass l ID Completed 11/06/2015 Patient Education: Janumet XR - 18-64 - TAHMINA - No [place] MA Completed 11/06/2015 Patient Education: Patient Medication Summary Completed 10/15/2015 Care Plan: CBC Pending 10/15/2015 Care Plan: LIPID PANEL LOINC : 70475-5 Pending 10/15/2015 Care Plan: A1C HPLC LOINC : 92663-4 Pending 10/15/2015 Care Plan: ASSAY OF FREE THYROXINE Pendin g 10/15/2015 Care Plan: ASSAY THYROID STIM HORMONE Pen ding 10/15/2015 Care Plan: [place] : [address]-5 Pending 10/15/2015 Visit Plan: Update fasting lab Check Josep mogram Daily stretches for right leg sciatica but if persists will likely need updated MRI due to history of fusion Accuchecks daily Due for colonoscopy in 2019 unless has bowel changes 03/15/2015 Appointment: Khadijah Williamson WPtel: [phone] [phone] 03/14/15 appt confirmed cn Annual Well Visit Patient Education: Patient Medication Summary Completed 03/15/2015 Care Plan: MAMMOGRAM SCREENING LOINC : 2 6347-5 Ordered 03/15/2015 Visit Plan: Continue Mucinex DM Cefdinir x 10 days Medrol dose pack Albuterol 0.83% soln. INH - SVN three times daily 03/01/2015 Appointment: Lety England WPtel: [phone] ACUTE ILLNESS 03/01/2015 Patient Education: Patient Medication Summary Completed 03/01/2015 Patient Education: [facility] - Saving AutoInj - 18-64 - Dynamic Jass l ID Completed 03/01/2015 Visit Plan: Lab discussed Hold fish oil for 1month and see if gas improves Accuchecks daily Decrease iron to one daily If gas does not improve with holding fish oil then will try holding metformin 10/03/2014 Appointment: Khadijah Williamson WPtel: [address] [place] [address] 10/02 no answer cn...10/03 no answer home tried cell vm not set up cn FOLLOW UP 10/03/2014 Patient Education: Patient Medication Summary Completed 10/03/2014 Patient Education: Patient Medication Summary Completed 09/25/2014 Care Plan: CBC Ordered 09/25/2014 Visit Plan: Moniter BP at home and work Check fasting lab Restart Citalopram Rec daily accuchecks 02/08/2014 Appointment: Khadijah Williamson WPtel: [phone] [id number] Annual Well Visit 02/08/2014 Patient Education: Patient Medication Summary Completed 02/08/2014 Patient Education: [facility] - Saving AutoInj - Citalopram HBR - 18+ - Dynamic Portal ID Completed 02/08/2014 Patient Education: [facility] - Saving AutoInj - 18+ - Dynamic Portal ID Completed 02/08/2014 Visit Plan: Trial of Celebrex 200mg po B ID for arthritis Baclofen 10mg po BID Check fasting lab 05/11/2013 Appointment: Khadijah Williamson WPtel: [address] [place] [address] 05/10 no answer FOLLOW UP 05/11/2013 Patient Education: Patient Medication Summary Completed 05/11/2013 Patient Education: Celebrex - 18+ - No [place] Completed 05/11/2013 Patient Education: [facility] - Saving AutoInj - 18+ - Dynamic Portal ID Completed 05/11/2013 Appointment: Khadijah Williamson WPtel: [address] [place] [address] FOLLOW UP 01/18/2013 Patient Education: Patient Medication Summary Completed 01/18/2013 Patient Education: [facility] - Saving AutoInj - 18+ - Dynamic Portal ID Completed 01/18/2013 Visit Plan: Supportive care. Rest, Fluid s, Tylenol/Motrin prn fever or bodyaches. Notify if worsening symptoms. 12/22/2012 Appointment: Khadijah Williamson WPtel: [address] [place] [address] ACUTE ILLNESS 12/22/2012 Patient Education: Patient Medication Summary Completed 12/22/2012 Visit Plan: Sleep Study Continue citalop lawanda at 20mg q HS DC synthroid Check CBC, B12, iron 09/02/2012 Appointment: Khadijah Williamson WPtel: [address] [place], [place] [phone] 09/01 no answer FOLLOW UP 09/02/2012 Patient Education: Patient Medication Summary Completed 09/02/2012 Visit Plan: Check fasting lab Diflucan a nd Nystatin cream 06/17/2012 Appointment: Khadijah Williamson WPtel: [address] [place], [place] [phone] 06/16 no answer FOLLOW UP 06/17/2012 Patient Education: Patient Medication Summary Completed 06/17/2012 Visit Plan: Pt just finished round of Le vaquin and Rifampin. Doxycycline. Will add steroid dose pack if chest x-ray is clear. Ajay nugent. Discussed that pt. should notify if symptoms worsen or fever occurs. Pt. sees Dr. Howard in follow up on Thursday. (Post spinal surgery) CC of chest x-ray to [facility]. Written RX for chest x-ray (PA/LAT)-pt wants to use [facility]. 03/15/2012 Appointment: Elsy Hendrickson WPtel: [address] [place] [address] ACUTE ILLNESS 03/15/2012 Patient Education: Patient Medication Summary Completed 03/15/2012 Visit Plan: See neurosurgery to discuss surgical options Discussed endoscopic spinal surgery Continue tramadol prn and use hydrocodone for severe pain 12/17/2011 Appointment: Khadijah Williamson WPtel: [address] [place] [address] 12/15 no answer FOLLOW UP 12/17/2011 Patient Education: Patient Medication Summary Completed 12/17/2011 Visit Plan: Strict 2gm Na Diet and suppo rt stockings Start Loratadine 10mg po Q HS Nasonex 2 sprays each nostil BID 10/27/2011 Appointment: Khadijah Williamson WPtel: [address] [place] [address] no answer ACUTE ILLNESS 10/27/2011 Patient Education: Patient Medication Summary Completed 10/27/2011 Visit Plan: Change metformin to Kombigly ze ER 5/1000mg daily Continue accuchecks Check Hemoccult card--will likely need colonoscopy Start iron DC Gralise Lyrica 75mg q HS for 3wks then call 08/14/2011 Appointment: Khadijah Williamson WPtel: [address] [place] [address] [place] FOLLOW UP 08/14/2011 Patient Education: Patient Medication Summary Completed 08/14/2011 Visit Plan: Repeat PT for 2-4wks Trial o f Gralise--starter pack given Use tramadol 50mg 1-2 po TID prn pain 07/09/2011 Appointment: Khadijah Williamson WPtel: [address] [place] [address] FOLLOW UP 07/09/2011 Patient Education: Patient Medication Summary Completed 07/09/2011 Visit Plan: Cefuroxime axetil. Discussed that will notify if symptoms worsen or do not improve. Will monitor for fever. Nasonex sample given. Encouraged rest and fluids. 02/10/2011 Appointment: Elsy Hendrickson WPtel: [address] [place] [address] ACUTE ILLNESS 02/10/2011 Patient Education: Patient Medication Summary Completed 02/10/2011 Appointment: Khadijah Williamson WPtel: [address] [place] [address] FOLLOW UP 12/12/2010 Patient Education: Patient Medication Summary Completed 12/12/2010 Visit Plan: Add Medrol Dose Pack Continu e celexa and abilify 09/18/2010 Appointment: Khadijah Williamson WPtel: [address] [place] [address] FOLLOW UP 09/18/2010 Patient Education: Patient Medication Summary Completed 09/18/2010 Appointment: Khadijah Williamson WPtel: [address] [place] [address] FOLLOW UP 08/19/2010 Patient Education: Patient Medication Summary Completed 08/19/2010 Visit Plan: Change Cymbalta to Wellbutri n XL 150mg q AM for 1wk then 300mg QD Check fasting lab 06/05/2010 Appointment: Khadijah Williamson WPtel: [address] [place] [address] FOLLOW UP 06/05/2010 Patient Education: Patient Medication Summary Completed 06/05/2010 Appointment: Khadijah Williamson WPtel: [address] [place] [address] ACUTE ILLNESS 03/12/2010 Patient Education: Patient Medication Summary Completed 03/12/2010 Visit Plan: Saline nasal flushes prn. Ty lenol/Motrin prn headache. Notify if persists/symptoms worsening. Pt has Biaxin at home and will start Check MRI L/S spine Fwup pending MRI results 09/19/2009 Appointment: Khadijah Williamson WPtel: [phone] [facility] ACUTE ILLNESS 09/19/2009 Patient Education: Patient Medication Summary Completed 09/19/2009 Visit Plan: Discussed referral to ortho for cyst--defers at this time 06/11/2009 Appointment: Khadijah Williamson WPtel: [phone] [facility] ESTABLISHED PATIENT 06/11/2009 Patient Education: Patient Medication Summary Completed 06/11/2009 Referral: Dennis Adorno WPtel: [address] [id number] [place] Referral Initiated Referral: Juanito Oneill WPtel: [facility] [address], [address] [place] Referral Appointment Requested Instructions Comment . Update fasting lab Lots of stressors with family illnesses Accuchecks daily Retiring at the end of this week . Lab discussed Accuchecks daily Proceed with updated dilated eye exam See Dr. Aviles for veins . Update fasting lab Check Mammogram Daily stretches for right leg sciatica but if persists will likely need updated MRI due to history of fusion Accuchecks daily Due for colonoscopy in 2019 unless has bowel changes . Continue Mucinex DM Cefdinir x 10 days Medrol dose pack Albuterol 0.83% soln. INH - SVN three times daily . Lab discussed Hold fish oil for 1month and see if gas improves Accuchecks daily Decrease iron to one daily If gas does not improve with holding fish oil then will try holding metformin . Moniter BP at home and work Check fasting lab Restart Citalopram Rec daily accuchecks . Trial of Celebrex 200mg po BID for art hritis Baclofen 10mg po BID Check fasting lab . Supportive care. Rest, Fluids, Tyleno l/Motrin prn fever or bodyaches. Notify if worsening symptoms. . Sleep Study Continue citalopram at 20mg q HS DC synthroid Check CBC, B12, iron . Check fasting lab Diflucan and Nystatin cream . Pt just finished round of Levaquin and Rifampin. Doxycycline. Will add steroid dose pack if chest x-ray is clear. Ajay nugent. Discussed that pt. should notify if symptoms worsen or fever occurs. Pt. sees Dr. Howard in follow up on Thursday. (Post spinal surgery) CC of chest x-ray to [facility]. Written RX for chest x-ray ([place]/LAT)-pt wants to use [facility]. . See neurosurgery to discuss surgical o ptions Discussed endoscopic spinal surgery Continue tramadol prn and use hydrocodone for severe pain . Strict 2gm Na Diet and support stockin gs Start Loratadine 10mg po Q HS Nasonex 2 sprays each nostil BID . Change metformin to Kombiglyze ER 5/10 00mg daily Continue accuchecks Check Hemoccult card--will likely need colonoscopy Start iron DC Gralise Lyrica 75mg q HS for 3wks then call . Repeat PT for 2-4wks Trial of Gralise--starter pack given Use tramadol 50mg 1-2 po TID prn pain . Cefuroxime axetil. Discussed that michele l notify if symptoms worsen or do not improve. Will monitor for fever. Nasonex sample given. Encouraged rest and fluids. . Add Medrol Dose Pack Continue celexa and abilify . Change Cymbalta to Wellbutrin XL 150mg q AM for 1wk then 300mg QD Check fasting lab . Saline nasal flushes prn. Tylenol/Motr in prn headache. Notify if persists/symptoms worsening. Pt has Biaxin at home and will start Check MRI L/S spine Fwup pending MRI results . Discussed referral to ortho for cyst-- defers at this time Medical Equipment No Medical Equipment data Health Concerns Section Health Concerns data not found Goals Section Goals data not found Interventions Section Interventions data not found Health Status Evaluations/Outcomes Section Health Status Evaluations/Outcomes data not found Advance Directives No Advance Directive data
--- OUTSIDE RECORDS SUMMARY | 2021-01-04 10:48 | XMS REPORT | CCD ---
Author Author Alana Williamson D.O. 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 Servicer Name Role Phone Khadijah Williamson D.O., PP Unavailable CCM Unavailable Summary Purpose Interface Exchange Insurance Providers Payer name Policy type / Coverage type Covered democrat ID Effective Begin Date Effective End Date WPS MEDICARE PART B [place] Part B [id number] 2018 Unknown [employer] Insurance [place] Medicare Part B [id number] Unknown Family History Family History data not found Social History Social History Element Codes Description Effective Dates Tobacco history SNOMED CT: 568436675 Unknown if ever smoked 09/13 Allergies, Adverse Reactions, Alerts Substance Reaction Codes Entered Date Inactivated Date Status _ Unknown 06/11/2009 No Inactive Date Active Milk _ Unknown 06/11/2009 No Inactive Date Active MORPHINE SULFATE _ RxNorm: 0221377 06/11/2009 No Inactive Da te Active * [...] Start Date Stop Date Status Fill Instructions fenofibrate micronized 134 mg capsule RxNorm: 645665 Ta ke 1 capsule by mouth once daily 11/25/2020 02/22/2021 Active omeprazole 20 mg capsule,delayed release RxNorm: 276316 Take 1 Capsule(s) Oral QD 11/25/2020 02/22/2021 Active losartan 100 mg tablet RxNorm: 057359 TAKE 1 TABLET BY MOUTH ONCE DAILY AT NIGHT AT BEDTIME 11/25/2020 02/22/2021 Active bupropion HCl XL 300 mg 24 hr tablet, extended release RxNor m: 579452 Take 1 Tablet(s) Oral QAM 11/12/2020 02/09/2021 Active citalopram 10 mg tablet RxNorm: 217578 Take 1 tablet by mouth o nce daily 11/05/2020 02/02/2021 Active cyclobenzaprine 10 mg tablet RxNorm: 956483 03/17-1 Table t(s) Oral three times a day as needed for muscle spasm 09/25/2020 10/14/2020 Inactive cyclobenzaprine 10 mg tablet RxNorm: 741860 2-1 Table t(s) Oral three times a day as needed for muscle spasm 09/25/2020 10/14/2020 Inactive fenofibrate micronized 134 mg capsule RxNorm: 909385 Ta ke 1 capsule by mouth once daily 08/27/2020 08/27/2020 Inactive citalopram 10 mg tablet RxNorm: 990216 Take 1 tablet by mouth o nce daily 08/06/2020 08/06/2020 Inactive atenolol 25 mg tablet RxNorm: 215063 Take 1 tablet by mouth onc e daily Oral 07/30/2020 01/25/2021 Active amitriptyline 10 mg tablet RxNorm: 683258 1-2 Tablet(s) Oral QPM as needed for sleep 06/05/2020 06/05/2020 Inactive cyclobenzaprine 10 mg tablet RxNorm: 156417 2-1 Table t(s) Oral three times a day as needed for muscle spasm 06/05/2020 06/05/2020 Inactive omeprazole 20 mg capsule,delayed release RxNorm: 056045 1 Capsu le(s) Oral QD 06/05/2020 06/05/2020 Inactive losartan 100 mg tablet RxNorm: 577547 1 Tablet(s) Oral every ni ght at bedtime 05/31/2020 05/31/2020 Inactive fenofibrate micronized 134 mg capsule RxNorm: 954206 Ta ke 1 capsule by mouth once daily 05/21/2020 05/21/2020 Inactive Celebrex 200 mg capsule RxNorm: 750061 1 Capsule(s) Ora l two times a day for pain 05/16/2020 08/13/2020 Inactive Wellbutrin XL 300 mg 24 hr tablet, extended release RxNorm: 362549 1 Tablet(s) Oral QAM 05/16/2020 05/16/2020 Inactive citalopram 10 mg tablet RxNorm: 478250 1 Tablet(s) Oral QD 05/15/1908/05/2020 Inactive omeprazole 20 mg capsule,delayed release RxNorm: 616189 Take 1 capsule by mouth once daily 03/05/2020 06/04/2020 Inactive fenofibrate micronized 134 mg capsule RxNorm: 321369 Ta ke 1 capsule by mouth once daily 02/20/2020 05/19/2020 Inactive amitriptyline 10 mg tablet RxNorm: 055011 1-2 Tablet(s) Oral QPM as needed for sleep 02/13/2020 06/04/2020 Inactive Celebrex 200 mg capsule RxNorm: 958270 TAKE 1 CAPSULE B Y MOUTH TWICE DAILY FOR PAIN 01/30/2020 05/15/2020 Inactive cyclobenzaprine 10 mg tablet RxNorm: 346342 TAKE 1/2 TO 1 (ONE-HALF TO ONE) TABLET BY MOUTH THREE TIMES DAILY NEEDED FOR MUSCLE SPASM 01/30/2020 06/04/2020 Inactive losartan 100 mg tablet RxNorm: 824431 TAKE 1 TABLET BY MOUTH ONCE DAILY AT BEDTIME 11/09/2019 05/30/2020 Inactive fenofibrate micronized 134 mg capsule RxNorm: 087520 1 Capsule( s) Oral QD 11/09/2019 02/06/2020 Inactive Wellbutrin XL 300 mg 24 hr tablet, extended release RxNorm: 628248 1 Tablet(s) Oral QAM 11/09/2019 05/15/2020 Inactive omeprazole 20 mg capsule,delayed release RxNorm: 699244 1 Capsu le(s) Oral QD 11/09/2019 02/06/2020 Inactive atenolol 25 mg tablet RxNorm: 295660 Take 1 tablet by mouth onc e daily 11/09/2019 07/29/2020 Inactive atenolol 25 mg tablet RxNorm: 223996 Take 1 tablet by mouth onc e daily 10/31/2019 11/08/2019 Inactive Celebrex 200 mg capsule RxNorm: 368321 TAKE 1 CAPSULE B Y MOUTH TWICE DAILY FOR PAIN 10/03/2019 11/01/2019 Inactive cyclobenzaprine 10 mg tablet RxNorm: 838680 TAKE 1/2 TO 1 (ONE-HALF TO ONE) TABLET BY MOUTH THREE TIMES DAILY NEEDED FOR MUSCLE SPASM 10/03/2019 11/11/2019 Inactive losartan 100 mg tablet RxNorm: 566294 TAKE 1 TABLET BY MOUTH ONCE DAILY AT BEDTIME 08/30/2019 11/08/2019 Inactive fenofibrate micronized 134 mg capsule RxNorm: 623715 1 Capsule( s) Oral QD 08/22/2019 11/08/2019 Inactive Wellbutrin XL 300 mg 24 hr tablet, extended release RxNorm: 178780 1 Tablet(s) Oral QAM 08/17/2019 11/08/2019 Inactive cyclobenzaprine 10 mg tablet RxNorm: 944222 TAKE 1/2 TO 1 (ONE-HALF TO ONE) TABLET BY MOUTH THREE TIMES DAILY NEEDED FOR MUSCLE SPASM 08/01/2019 08/20/2019 Inactive Xyzal 5 mg tablet RxNorm: 979641 1 Tablet(s) Oral QD 07/20/[address] op Date Active Wellbutrin XL 150 mg 24 hr tablet, extended release RxNorm: 107344 1 Tablet(s) Oral QAM replaces duloxetine 07/20/2019 02/12/2020 Inactive Tylenol Extra Strength 500 mg tablet RxNorm: 581899 2 T ablet(s) Oral two times a day 07/20/2019 05/13/2020 Inactive cefdinir 300 mg capsule RxNorm: 710195 1 Capsule(s) Oral two ti mes a day 07/20/2019 08/03/2019 Inactive duloxetine 60 mg capsule,delayed release RxNorm: 285932 1 Capsu le(s) Oral QD 06/09/2019 07/19/2019 Inactive omeprazole 20 mg capsule,delayed release RxNorm: 004785 TAKE 1 CAPSULE BY MOUTH ONCE DAILY 06/09/2019 06/08/2019 Inactive omeprazole 20 mg capsule,delayed release RxNorm: 621103 1 Capsu le(s) Oral QD 06/09/2019 09/07/2019 Inactive losartan 100 mg tablet RxNorm: 320319 TAKE 1 TABLET BY MOUTH ONCE DAILY AT BEDTIME 05/30/2019 08/27/2019 Inactive fenofibrate micronized 134 mg capsule RxNorm: 305460 TA KE 1 CAPSULE BY MOUTH ONCE DAILY 05/26/2019 08/21/2019 Inactive duloxetine 60 mg capsule,delayed release RxNorm: 803989 TAKE 1 CAPSULE BY MOUTH ONCE DAILY, REPLACES 30MG DOSE 05/19/2019 06/08/2019 Inactive atenolol 25 mg tablet RxNorm: 557075 1 Tablet(s) Oral QD 04/27/2019 0 10/23/2019 Inactive duloxetine 60 mg capsule,delayed release RxNorm: 873154 TAKE 1 CAPSULE BY MOUTH ONCE DAILY, REPLACES 30MG DOSE 04/18/2019 05/17/2019 Inactive cyclobenzaprine 10 mg tablet RxNorm: 762936 TAKE 1/2 TO 1 (ONE-HALF TO ONE) TABLET BY MOUTH THREE TIMES DAILY NEEDED FOR MUSCLE SPASM 03/29/2019 05/07/2019 Inactive Celebrex 200 mg capsule RxNorm: 497625 TAKE 1 CAPSULE B Y MOUTH TWICE DAILY FOR PAIN 03/29/2019 05/27/2019 Inactive losartan 100 mg tablet RxNorm: 408767 TAKE 1 TABLET BY MOUTH ONCE DAILY AT BEDTIME 03/07/2019 05/29/2019 Inactive duloxetine 60 mg capsule,delayed release RxNorm: 793970 TAKE 1 CAPSULE BY MOUTH ONCE DAILY, REPLACES 30MG DOSE 02/15/2019 04/17/2019 Inactive duloxetine 60 mg capsule,delayed release RxNorm: 582041 TAKE 1 CAPSULE BY MOUTH ONCE DAILY, REPLACES 30MG DOSE 12/14/2018 02/14/2019 Inactive omeprazole 20 mg capsule,delayed release RxNorm: 095633 TAKE 1 CAPSULE BY MOUTH ONCE DAILY 12/14/2018 06/09/2019 Inactive fenofibrate micronized 134 mg capsule RxNorm: 860760 1 Capsule( s) PO QD 11/23/2018 05/25/2019 Inactive duloxetine 60 mg capsule,delayed release RxNorm: 327325 TAKE 1 CAPSULE BY MOUTH ONCE DAILY, REPLACES 30MG DOSE 10/11/2018 12/13/2018 Inactive losartan 100 mg tablet RxNorm: 059053 TAKE 1 TABLET BY MOUTH EVERY DAY AT BEDTIME 09/01/2018 03/06/2019 Inactive fenofibrate micronized 134 mg capsule RxNorm: 585837 1 Capsule( s) PO QD 08/24/2018 11/22/2018 Inactive Celebrex 200 mg capsule RxNorm: 364535 1 Capsule(s) PO BID for pain 07/29/2018 11/25/2018 Inactive cyclobenzaprine 10 mg tablet RxNorm: 178762 /2-1 Table t(s) PO TID as needed for muscle spasm 07/29/2018 03/28/2019 Inactive cyclobenzaprine 10 mg tablet RxNorm: 963689 1/2-1 Table t(s) PO TID as needed for muscle spasm 06/11/2018 07/28/2018 Inactive Celebrex 200 mg capsule RxNorm: 500334 1 Capsule(s) PO BID for pain 05/27/2018 07/25/2018 Inactive fenofibrate micronized 134 mg capsule RxNorm: 770777 TA KE 1 CAPSULE BY MOUTH ONCE DAILY 05/24/2018 08/24/2018 Inactive omeprazole 20 mg capsule,delayed release RxNorm: 975470 1 Capsu le(s) PO QD 05/10/2018 05/09/2018 Inactive omeprazole 20 mg capsule,delayed release RxNorm: 248844 1 Capsu le(s) PO QD 05/10/2018 11/05/2018 Inactive atenolol 25 mg tablet RxNorm: 273201 1 Tablet(s) PO QD 05/10/201801/2020 Inactive atenolol 25 mg tablet RxNorm: 400126 1 Tablet(s) PO QD 05/10/2018 Inactive losartan 100 mg tablet RxNorm: 173224 1 Tablet(s) PO QHS 04/12/2018 0 08/31/2018 Inactive Januvia 50 mg tablet RxNorm: 244702 1 Tablet(s) PO QD 04/06/201809/13 Inactive duloxetine 60 mg capsule,delayed release RxNorm: 503817 TAKE 1 CAPSULE BY MOUTH ONCE DAILY, REPLACES 30MG DOSE 03/10/2018 10/10/2018 Inactive losartan 100 mg tablet RxNorm: 411376 TAKE 1 TABLET BY MOUTH AT BEDTIME 01/04/2018 04/12/2018 Inactive cyclobenzaprine 10 mg tablet RxNorm: 710618 TAKE 1/2 TO 1 (ONE-HALF TO ONE) TABLET BY MOUTH THREE TIMES DAILY NEEDED FOR MUSCLE SPASM 12/24/2017 06/11/2018 Inactive duloxetine 60 mg capsule,delayed release RxNorm: 311132 TAKE 1 CAPSULE BY MOUTH ONCE DAILY, REPLACES 30MG DOSE 12/08/2017 03/09/2018 Inactive fenofibrate micronized 134 mg capsule RxNorm: 471994 1 Capsule( s) PO QD 11/23/2017 05/21/2018 Inactive atenolol 25 mg tablet RxNorm: 622740 1 Tablet(s) PO QD 11/09/2017 Inactive losartan 100 mg tablet RxNorm: 693216 1 Tablet(s) PO QHS REPLAC ES 50MG DOSE 10/02/2017 12/30/2017 Inactive losartan 100 mg tablet RxNorm: 278221 TAKE ONE TABLET B Y MOUTH ONCE DAILY AT BEDTIME - REPLACES 50MG DOSE 09/08/2017 10/02/2017 Inactive cyclobenzaprine 10 mg tablet RxNorm: 747751 1/2-1 Table t(s) PO TID as needed for muscle spasm 09/03/2017 2017 Inactive duloxetine 60 mg capsule,delayed release RxNorm: 641590 1 Capsule(s) PO QD replaces 30mg dose 09/03/2017 12/01/2017 Inactive fenofibrate micronized 134 mg capsule RxNorm: 572081 1 Capsule( s) PO QD 08/18/2017 11/23/2017 Inactive omeprazole 20 mg capsule,delayed release RxNorm: 172902 Capsule(s) TAKE ONE CAPSULE BY MOUTH ONCE DAILY 08/18/2017 05/10/2018 Inactive metformin 1,000 mg tablet RxNorm: 520264 1 Tablet(s) PO QAM rep laces Janumet 08/13/2017 10/07/2017 Inactive prednisone 20 mg tablet RxNorm: 330326 1 Tablet(s) PO T ID for 3 days then 1 po BID for 3 days then one daily for 3 days 08/13/2017 09/02/2017 Inactiv e Cymbalta 30 mg capsule,delayed release RxNorm: 894493 1 Capsule (s) PO QD 08/13/2017 09/02/2017 Inactive citalopram 40 mg tablet RxNorm: 513677 1 Tablet(s) PO QD 06/09/2017 0 08/12/2017 Inactive meloxicam 15 mg tablet RxNorm: 591839 1 Tablet(s) PO QD 1 Tablet(s) PO QD TAKE ONE TABLET BY MOUTH ONCE DAILY FOR PAIN 05/05/2017 10/07/2017 Inactive fenofibrate micronized 134 mg capsule RxNorm: 219687 1 Capsule( s) PO QD 05/05/2017 08/18/2017 Inactive atenolol 25 mg tablet RxNorm: 921246 1 Tablet(s) PO QD 05/05/2017 Inactive Janumet XR 50 mg-1,000 mg tablet,extended release RxNorm: 12 03616 1 Tablet(s) PO QAM replaces 100mg/1000mg dose 04/22/2017 08/12/2017 Inactive Lyrica 75 mg capsule RxNorm: 461683 1 Capsule(s) PO BID 04/22/2017 Inactive Janumet XR 100 mg-1,000 mg tablet,extended release RxNorm: 1 695447 1 Tablet(s) PO QD 03/11/2017 04/21/2017 Inactive losartan 100 mg tablet RxNorm: 666286 1 Tablet(s) PO QHS replac es 50mg dose 03/11/2017 09/06/2017 Inactive cyclobenzaprine 10 mg tablet RxNorm: 126609 1 Tablet(s) PO TID Tablet(s) 1 Tablet(s) PO TID as needed for muscle spasm 02/04/2017 05/31/2017 Inac tive cyclobenzaprine 10 mg tablet RxNorm: 723963 1 Tablet(s) PO TID Tablet(s) 1 Tablet(s) PO TID as needed for muscle spasm 02/04/2017 02/03/2017 Inac tive omeprazole 20 mg capsule,delayed release RxNorm: 885012 Capsule(s) TAKE ONE CAPSULE BY MOUTH ONCE DAILY 01/05/2017 08/18/2017 Inactive Janumet XR 100 mg-1,000 mg tablet,extended release RxNorm: 1 722322 1 Tablet(s) PO QD 01/05/2017 03/05/2017 Inactive citalopram 40 mg tablet RxNorm: 989838 1 Tablet(s) PO QD 12/03/2016 0 06/09/2017 Inactive atenolol 25 mg tablet RxNorm: 517554 1 Tablet(s) PO QD 11/06/2016 Inactive cyclobenzaprine 10 mg tablet RxNorm: 453444 1 Tablet(s) PO TID Tablet(s) 1 Tablet(s) PO TID as needed for muscle spasm 11/05/2016 02/04/2017 Inac tive Janumet XR 100 mg-1,000 mg tablet,extended release RxNorm: 1 173884 1 Tablet(s) PO QD Due for fasting labs 11/05/2016 01/05/2017 Inactive fenofibrate micronized 134 mg capsule RxNorm: 241020 1 Capsule( s) PO QD 11/05/2016 05/05/2017 Inactive meloxicam 15 mg tablet RxNorm: 046543 1 Tablet(s) PO QD 1 Tablet(s) PO QD TAKE ONE TABLET BY MOUTH ONCE DAILY FOR PAIN 11/05/2016 05/05/2017 Inactive atenolol 25 mg tablet RxNorm: 218989 1 Tablet(s) PO QD 08/07/2016 Inactive cyclobenzaprine 10 mg tablet RxNorm: 870764 Tablet(s) T ablet(s) 1 Tablet(s) PO TID as needed for muscle spasm 08/07/2016 11/05/2016 Inactive Cozaar 50 mg tablet RxNorm: 437101 1 Tablet(s) PO QHS for BP 201603/10/2017 Inactive Cozaar 50 mg tablet RxNorm: 326271 1 Tablet(s) PO QHS for BP 201607/27/2016 Inactive meloxicam 15 mg tablet RxNorm: 949156 1 Tablet(s) PO QD TAKE ONE TABLET BY MOUTH ONCE DAILY FOR PAIN 05/07/2016 11/05/2016 Inactive omeprazole 20 mg capsule,delayed release RxNorm: 385892 TAKE ONE CAPSULE BY MOUTH ONCE DAILY 04/28/2016 01/05/2017 Inactive citalopram 40 mg tablet RxNorm: 076192 1 Tablet(s) PO QD 04/28/2016 0 12/03/2016 Inactive fenofibrate micronized 134 mg capsule RxNorm: 167085 1 Capsule( s) PO QD 03/11/2016 11/05/2016 Inactive Janumet XR 100 mg-1,000 mg tablet,extended release RxNorm: 1 208479 1 Tablet(s) PO QD Due for fasting labs 03/11/2016 11/05/2016 Inactive Cozaar 50 mg tablet RxNorm: 079753 1 Tablet(s) PO QHS for BP 201507/28/2016 Inactive citalopram 40 mg tablet RxNorm: 648824 1 Tablet(s) PO QD 03/11/2016 0 04/09/2016 Inactive cyclobenzaprine 10 mg tablet RxNorm: 258391 Tablet(s) 1 Tablet(s) PO TID as needed for muscle spasm 02/11/2016 08/07/2016 Inactive citalopram 20 mg tablet RxNorm: 284932 TAKE ONE TABLET BY MOUTH AT BEDTIME 12/17/2015 03/10/2016 Inactive atenolol 25 mg tablet RxNorm: 723206 1 Tablet(s) PO QD 11/06/2015 Inactive meloxicam 15 mg tablet RxNorm: 915330 1 Tablet(s) PO QD TAKE ONE TABLET BY MOUTH ONCE DAILY FOR PAIN 11/06/2015 05/03/2016 Inactive Janumet XR 100 mg-1,000 mg tablet,extended release RxNorm: 1 070612 1 Tablet(s) PO QD Due for fasting labs 11/06/2015 03/10/2016 Inactive fenofibrate micronized 134 mg capsule RxNorm: 004343 1 Capsule( s) PO QD 11/06/2015 03/10/2016 Inactive cyclobenzaprine 10 mg tablet RxNorm: 218076 Tablet(s) 1 Tablet(s) PO TID as needed for muscle spasm 11/06/2015 01/04/2016 Inactive Cozaar 50 mg tablet RxNorm: 955426 1 Tablet(s) PO QHS for BP 201503/01/2016 Inactive Janumet XR 100 mg-1,000 mg tablet,extended release RxNorm: 1 806262 1 Tablet(s) PO QD Due for fasting labs 09/04/2015 11/05/2015 Inactive atenolol 25 mg tablet RxNorm: 016869 TAKE ONE TABLET BY MOUTH O NCE DAILY 07/17/2015 08/07/2016 Inactive omeprazole 20 mg capsule,delayed release RxNorm: 060729 1 Capsu le(s) PO QD 07/09/2015 02/03/2016 Inactive cyclobenzaprine 10 mg tablet RxNorm: 634796 Tablet(s) 1 Tablet(s) PO TID as needed for muscle spasm 06/12/2015 08/10/2015 Inactive citalopram 20 mg tablet RxNorm: 831200 1 Tablet(s) PO QHS 06/12/2015 12/08/2015 Inactive meloxicam 15 mg tablet RxNorm: 309914 Tablet(s) TAKE ON E TABLET BY MOUTH ONCE DAILY FOR PAIN 05/16/2015 11/05/2015 Inactive atenolol 25 mg tablet RxNorm: 714870 1 Tablet(s) PO QD 05/11/2015 Inactive fenofibrate micronized 134 mg capsule RxNorm: 978979 1 Capsule( s) PO QD 05/11/2015 11/05/2015 Inactive omeprazole 20 mg capsule,delayed release RxNorm: 001727 1 Capsu le(s) PO QD 04/17/2015 07/08/2015 Inactive doxycycline hyclate 100 mg capsule RxNorm: 2462439 1 Capsule(s) PO BID 03/15/2015 03/24/2015 Inactive Cozaar 50 mg tablet RxNorm: 530403 1 Tablet(s) PO QHS for BP 201409/04/2015 Inactive Janumet XR 100 mg-1,000 mg tablet,extended release RxNorm: 1 096193 1 Tablet(s) PO QD 03/15/2015 09/04/2015 Inactive albuterol sulfate 2.5 mg/3 mL (0.083 %) solution for n ebulization RxNorm: 452047 3 Milliliter(s) INH TID INHALE ONE VIAL PER NEBULIZER 03/01/2015 11/05/2015 Inactive Medrol (Alexei) 4 mg tablets in a dose pack RxNorm: 088975 Tablet(s) PO as directed 03/01/2015 03/14/2015 Inactive as directed cefdinir 300 mg capsule RxNorm: 548050 2 Capsule(s) PO QD 03/01/2015 03/10/2015 Inactive Janumet XR 100 mg-1,000 mg tablet,extended release RxNorm: 1 042154 1 Tablet(s) PO QD Needs fasting labs 02/19/2015 03/15/2015 Inactive Janumet XR 100 mg-1,000 mg tablet,extended release RxNorm: 1 205189 1 Tablet(s) PO QD Needs fasting labs 01/23/2015 02/19/2015 Inactive omeprazole 20 mg capsule,delayed release RxNorm: 369589 1 Capsu le(s) PO QD 01/23/2015 04/16/2015 Inactive citalopram 20 mg tablet RxNorm: 954020 1 Tablet(s) PO QHS 12/18/2014 06/12/2015 Inactive cyclobenzaprine 10 mg tablet RxNorm: 426592 1 Tablet(s) PO TID as needed for muscle spasm 11/13/2014 06/12/2015 Inactive fenofibrate micronized 134 mg capsule RxNorm: 749179 1 Capsule(s) PO QD -patient is due for fasting labs 11/13/2014 05/11/2015 Inactive meloxicam 15 mg tablet RxNorm: 749054 TAKE ONE TABLET B Y MOUTH ONCE DAILY FOR PAIN 11/13/2014 05/16/2015 Inactive atenolol 25 mg tablet RxNorm: 331706 1 Tablet(s) PO QD - due fo r labs 11/13/2014 05/11/2015 Inactive omeprazole 20 mg capsule,delayed release RxNorm: 780086 1 Capsu le(s) PO QD 10/16/2014 01/23/2015 Inactive atenolol 25 mg tablet RxNorm: 165634 1 Tablet(s) PO QD - due fo r labs 10/11/2014 11/09/2014 Inactive [AttnRPh: Saving christina ly/adjudicate RxGRP:SG20 RxBIN:[id number] RxPCN:HT ID#:[id number]] fenofibrate micronized 134 mg capsule RxNorm: 609893 1 Capsule(s) PO QD -patient is due for fasting labs 10/11/2014 04/13/2019 Inactive [AttnRPh : Saving apply/adjudicate RxGRP:SG20 RxBIN:[id number] RxPCN:HT ID#:[id number]] fenofibrate micronized 134 mg capsule RxNorm: 306889 1 Capsule(s) PO QD -patient is due for fasting labs 09/12/2014 10/11/2014 Inactive [AttnRPh : Saving apply/adjudicate RxGRP:SG20 RxBIN:[id number] RxPCN:HT ID#:[id number]] atenolol 25 mg tablet RxNorm: 500566 1 Tablet(s) PO QD - due fo r labs 09/12/2014 10/11/2014 Inactive [AttnRPh: Saving christina ly/adjudicate RxGRP:SG20 RxBIN:[id number] RxPCN:HT ID#:[id number]] meloxicam 15 mg tablet RxNorm: 086635 1 Tablet(s) PO QD for pain 11/06/2014 Inactive citalopram 20 mg tablet RxNorm: 880555 1 Tablet(s) PO Q HS TAKE ONE TABLET BY MOUTH AT BEDTIME 08/09/2014 12/18/2014 Inactive cyclobenzaprine 10 mg tablet RxNorm: 612048 1 Tablet(s) PO TID as needed for muscle spasm 08/09/2014 09/07/2014 Inactive Janumet XR 100 mg-1,000 mg tablet,extended release RxNorm: 1 406292 Tablet(s) 1 Tablet(s) PO QD 07/19/2014 01/23/2015 Inactive fenofibrate micronized 134 mg capsule RxNorm: 359268 1 Capsule( s) PO QD 06/06/2014 09/12/2014 Inactive [AttnRPh: Saving christina ly/adjudicate RxGRP:SG20 RxBIN:[id number] RxPCN: ID#:[id number]] cyclobenzaprine 10 mg tablet RxNorm: 934944 1 Tablet(s) PO TID as needed for muscle spasm 06/06/2014 07/05/2014 Inactive fenofibrate micronized 134 mg capsule RxNorm: 930535 1 Capsule( s) PO QD 03/10/2014 03/09/2014 Inactive fenofibrate micronized 134 mg capsule RxNorm: 055600 1 Capsule( s) PO QD 03/10/2014 06/06/2014 Inactive meloxicam 15 mg tablet RxNorm: 876544 1 Tablet(s) PO QD for pain 08/09/2014 Inactive citalopram 20 mg tablet RxNorm: 218657 1 Tablet(s) PO QHS 02/08/2014 08/09/2014 Inactive [AttnRPh: Saving apply/adjudicate RxGRP: SG20 RxBIN:[id number] RxPCN: ID#:[id number]] Flexeril 10 mg tablet RxNorm: 477495 1 Tablet(s) PO QHS for spasm 0 12/13/2013 06/06/2014 Inactive [AttnRPh: Saving apply/adjud icate RxGRP:SG20 RxBIN:[id number] RxPCN:HT ID#:[id number]] meloxicam 15 mg tablet RxNorm: 049364 1 Tablet(s) PO QD TAKE ONE TABLET BY MOUTH ONCE DAILY FOR PAIN 12/13/2013 02/12/2014 Inactive omeprazole 20 mg capsule,delayed release RxNorm: 202938 2 Capsu le(s) PO QD 12/13/2013 03/12/2014 Inactive Janumet XR 100 mg-1,000 mg tablet,extended release RxNorm: 1 166439 1 Tablet(s) PO QD 10/20/2013 07/19/2014 Inactive Janumet XR 100 mg-1,000 mg tablet,extended release RxNorm: 1 618887 1 Tablet(s) PO QD 10/18/2013 10/19/2013 Inactive atenolol 25 mg tablet RxNorm: 888527 1 Tablet(s) PO QD 08/31/2013 Inactive [AttnRPh: Saving apply/adjudicate RxGRP: SG20 RxBIN:[id number] RxPCN:HT ID#:[id number]] Janumet XR 100 mg-1,000 mg tablet,extended release RxNorm: 1 947677 1 Tablet(s) PO QD 07/12/2013 10/09/2013 Inactive baclofen 10 mg tablet RxNorm: 590718 1 Tablet(s) PO BID for spasm 0 05/11/2013 09/07/2013 Inactive AttnRPh: Saving apply/adjudi vika RxGRP:SG20 RxBIN:[id number] RxPCN:HT ID#:[id number] Celebrex 200 mg capsule RxNorm: 294704 1 Capsule(s) PO BID for pain 05/11/2013 09/07/2013 Inactive Janumet XR 100 mg-1,000 mg tablet,extended release RxNorm: 1 716206 1 Tablet(s) PO QD 04/21/2013 07/12/2013 Inactive omeprazole 20 mg capsule,delayed release RxNorm: 215119 2 Capsu le(s) PO QD 02/28/2013 12/13/2013 Inactive Janumet XR 100 mg-1,000 mg tablet,extended release RxNorm: 1 906957 1 Tablet(s) PO QD 01/20/2013 01/19/2013 Inactive Janumet XR 100 mg-1,000 mg tablet,extended release RxNorm: 1 916242 1 Tablet(s) PO QD 01/20/2013 04/21/2013 Inactive clindamycin 300 mg capsule RxNorm: 821546 2 Capsule(s) PO TID 01/1801/27/2013 Inactive AttnRPh: Saving apply/adjudi vika RxGRP:SG20 RxBIN:[id number] RxPCN:HT ID#:[id number] cefdinir 300 mg capsule RxNorm: 511501 2 Capsule(s) PO QD 12/22/2012 01/04/2013 Inactive Kombiglyze XR 5 mg-1,000 mg tablet,extended release RxNorm: 9468698 1 Tablet(s) PO QD 10/11/2012 01/19/2013 Inactive Kombiglyze XR 5 mg-1,000 mg tablet,extended release RxNorm: 8201972 1 Tablet(s) PO QD 10/11/2012 05/26/2018 Inactive atenolol 25 mg tablet RxNorm: 275534 1 Tablet(s) PO QD 09/27/2012 Inactive Abilify 2 mg tablet RxNorm: 888936 1 Tablet(s) PO QAM 09/27/201204/17 Inactive atenolol 25 mg tablet RxNorm: 422711 1 Tablet(s) PO QD 09/02/2012 Inactive omeprazole 20 mg capsule,delayed release RxNorm: 615533 2 Capsu le(s) PO QD 07/13/2012 07/12/2012 Inactive omeprazole 20 mg capsule,delayed release RxNorm: 023595 2 Capsu le(s) PO QD 07/13/2012 01/08/2013 Inactive Kombiglyze XR 5 mg-1,000 mg tablet,extended release RxNorm: 7020939 1 Tablet(s) PO QD 07/12/2012 10/09/2012 Inactive citalopram 20 mg tablet RxNorm: 455671 1 Tablet(s) PO QHS 06/24/2012 09/01/2012 Inactive Flexeril 10 mg tablet RxNorm: 711571 1 Tablet(s) PO TID 06/24/2012 Inactive as needed for spasms. Generic ok. Diflucan 100 mg tablet RxNorm: 778362 1 Tablet(s) PO QD 06/17/2012 Inactive Kombiglyze XR 5 mg-1,000 mg tablet,extended release RxNorm: 1498121 1 Tablet(s) PO QD 04/12/2012 07/10/2012 Inactive doxycycline monohydrate 100 mg tablet RxNorm: 3038063 1 Tablet(s ) PO BID 03/15/2012 03/24/2012 Inactive Kombiglyze XR 5 mg-1,000 mg tablet,extended release RxNorm: 8336063 1 Tablet(s) PO QD need updated lab 03/02/2012 05/26/2018 Inactive Kombiglyze XR 5 mg-1,000 mg tablet,extended release RxNorm: 2994349 1 Tablet(s) PO QD 03/02/2012 03/01/2012 Inactive Kombiglyze XR 5 mg-1,000 mg tablet,extended release RxNorm: 4687398 1 Tablet(s) PO QD 03/02/2012 03/31/2012 Inactive Flexeril 10 mg tablet RxNorm: 191217 1 Tablet(s) PO TID 02/25/2012 Inactive as needed for spasms. Generic ok. citalopram 20 mg tablet RxNorm: 569347 1 Tablet(s) PO QD 12/17/2011 0 06/13/2012 Inactive Lyrica 75 mg capsule RxNorm: 048274 1 Capsule(s) PO QHS 12/03/2011 Inactive Abilify 2 mg tablet RxNorm: 122795 1 Tablet(s) PO QAM 12/03/201105/2012 Inactive Flexeril 10 mg tablet RxNorm: 558167 1 Tablet(s) PO TID 12/03/2011 Active as needed for spasms. Generic ok. Lyrica 75 mg capsule RxNorm: 394124 1 Capsule(s) PO QHS 09/22/2011 Inactive Flexeril 10 mg tablet RxNorm: 497388 1 Tablet(s) PO TID 08/18/2011 Active as needed for spasms. Generic ok. meloxicam 15 mg tablet RxNorm: 739743 1 Tablet(s) PO QD 08/14/2011 Inactive prn pain atenolol 25 mg tablet RxNorm: 119988 1 Tablet(s) PO QD 08/14/2011 Inactive Abilify 2 mg tablet RxNorm: 991645 1 Tablet(s) PO QAM 06/16/201109/15 Inactive citalopram 20 mg tablet RxNorm: 544780 1 Tablet(s) PO QD 06/16/2011 0 12/12/2011 Inactive metformin ER 500 mg 24 hr Tab RxNorm: 799451 1 Tablet(s) PO BID 08/13/2011 Inactive Abilify 2 mg Tab RxNorm: 824847 1 Tablet(s) PO QAM 02/10/2011 012 Inactive cefuroxime axetil 500 mg Tab RxNorm: 380162 1 Tablet(s) PO BID 01/1502/19/2011 Inactive metformin ER 500 mg 24 hr Tab RxNorm: 901668 1 Tablet(s) PO BID 04/28/2011 Inactive Abilify 2 mg Tab RxNorm: 859442 1 Tablet(s) PO QAM 12/12/2010 011 Inactive doxycycline 100 mg Cap RxNorm: 5304352 1 Capsule(s) PO BID 12/13/19 11 12/18/2010 Inactive citalopram 20 mg Tab RxNorm: 574157 1 Tablet(s) PO QD 12/12/201003/2011 Inactive Abilify 2 mg Tab RxNorm: 729695 1 Tablet(s) PO QAM 12/11/2010 011 Inactive citalopram 20 mg Tab RxNorm: 490323 1 Tablet(s) PO QD 11/11/201011/15 Inactive Abilify 2 mg Tab RxNorm: 167731 1 Tablet(s) PO QAM 10/14/2010 011 Inactive Flexeril 10 mg Tab RxNorm: 097266 1 Tablet(s) PO TID a s needed for spasms. Generic ok. 08/30/2010 08/29/2010 Active citalopram 20 mg Tab RxNorm: 724602 1 Tablet(s) PO QD 08/19/201010/15 Inactive Abilify 2 mg Tab RxNorm: 807511 1 Tablet(s) PO QAM 08/19/2010 011 Inactive Synthroid 25 mcg Tab RxNorm: 193527 1 Tablet(s) PO QD 07/03/201011/14 Inactive meloxicam 15 mg Tab RxNorm: 095599 1 Tablet(s) PO QD prn pain 06/0505/30/2011 Inactive atenolol 25 mg Tab RxNorm: 653692 1 Tablet(s) PO QD 06/05/20102011 Inactive Wellbutrin XL 300 mg 24 hr Tab RxNorm: 770462 1 Tablet(s) PO QAM 08/03/2010 Inactive Flexeril 10 mg Tab RxNorm: 864200 1 Tablet(s) PO TID as needed for spasms 06/05/2010 06/04/2010 Active metformin ER 500 mg 24 hr Tab RxNorm: 944442 1 Tablet(s) PO BID 12/01/2010 Inactive omeprazole 20 mg capsule,delayed release RxNorm: 196577 2 Capsu le(s) PO QD 06/05/2010 07/13/2012 Inactive metformin ER 500 mg 24 hr Tab RxNorm: 897394 1 Tablet(s) PO 010 06/04/2010 Inactive doxycycline 100 mg Cap RxNorm: 0093592 1 Capsule(s) PO BID 03/12/20 10 03/21/2010 Inactive omeprazole 20 mg Cap, Delayed Release RxNorm: 747334 2 Capsule( s) PO QD 02/04/2010 06/04/2010 Inactive Synthroid 25 mcg Tab RxNorm: 572925 1 Tablet(s) PO QD 01/14/201005/16 Inactive metformin 500 mg Tab RxNorm: 382960 1 Tablet(s) PO BID 12/21/2009 Inactive Cymbalta 60 mg Cap RxNorm: 058663 1 Capsule(s) PO QD 11/22/200908/18 Inactive Flexeril 10 mg Tab RxNorm: 674156 1 Tablet(s) PO PRN 11/22/200911/21 Active atenolol 25 mg Tab RxNorm: 469201 1 Tablet(s) PO QD 10/08/20092010 Inactive Synthroid 25 mcg Tab RxNorm: 491652 1 Tablet(s) PO QD 08/01/200912/14 Inactive meloxicam 15 mg Tab RxNorm: 898752 1 Tablet(s) PO QD prn pain 07/2306/04/2010 Inactive Avelox 400 mg Tab RxNorm: 424244 1 Tablet(s) PO QD 06/11/2009 010 Inactive Cymbalta 60 mg Cap RxNorm: 685708 1 Capsule(s) PO QD 05/20/200911/15 Inactive Vitamin C Oral RxNorm: Oral 06/11/2009 Active ferrous sulfate 325 mg (65 mg iron) tablet RxNorm: 153156 1 Tab let(s) PO BID 10/03/2014 Active PreserVision AREDS 2 250 mg-200 unit-40 mg-1 mg capsule RxNo rm: 1 Capsule(s) PO BID 10/03/2014 Active Vitamin D3 5,000 unit tablet RxNorm: 637766 1 Tablet(s) PO QD 014 Active Tylenol Extra Strength 500 mg tablet RxNorm: 437893 2 T ablet(s) PO QHS as needed 06/17/2012 Active Flexeril 10 mg Tab RxNorm: 551574 1 Tablet(s) PO TID as needed for spasms 06/05/2010 06/04/2010 Inactive Atenolol 25 mg Tab RxNorm: 297112 1 Tablet(s) PO QD 10/08/20092009 Inactive Lyrica 75 mg capsule RxNorm: 804397 1 Capsule(s) PO QD 04/22/201708/2017 Inactive ferrous sulfate 325 mg (65 mg iron) tablet RxNorm: 470216 1 Tab let(s) PO QD 02/13/2020 02/12/2020 Inactive Fish Oil 1,000 mg capsule RxNorm: 3 Capsule(s) PO QD 11/06/2015 Inactive Iron (ferrous sulfate) 325 mg (65 mg iron) tablet RxNorm: 31 0325 1 Tablet(s) PO BID 05/11/2013 05/10/2013 Inactive omeprazole 20 mg capsule,delayed release RxNorm: 215304 1 Capsu le(s) PO QD 10/16/2014 10/15/2014 Inactive Lyrica 75 mg capsule RxNorm: 878014 1 Capsule(s) PO BID 08/13/2017 Inactive hydrocodone-acetaminophen 5 mg-500 mg tablet RxNorm: 204808 1-2 Tablet(s) PO TID as needed for pain 02/08/2014 02/07/2014 Inactive ferrous sulfate 325 mg (65 mg iron) tablet RxNorm: 808126 1 Tab let(s) PO BID 08/13/2017 08/12/2017 Inactive ferrous sulfate 325 mg (65 mg iron) tablet RxNorm: 184071 1 Tab let(s) PO QD 02/13/2020 02/12/2020 Inactive Abilify 2 mg Tab RxNorm: 204532 1 Tablet(s) PO QD 08/19/2010 08/19/19 11 Inactive Januvia 50 mg tablet RxNorm: 343411 1 Tablet(s) PO QD 04/06/201803/17 Inactive Vitamin D 1,000 unit Cap RxNorm: 999520 1 Capsule(s) PO QD 06/06/19 11 06/04/2010 Inactive Meloxicam 15 mg Tab RxNorm: 114999 1 Tablet(s) PO QD 07/23/200907/22 Inactive Darvocet-N 100 100 mg-650 mg Tab RxNorm: 664976 Tablet(s) PO PRN 06/04/2010 Inactive Flonase 50 mcg/actuation nasal spray,suspension RxNorm: 8963 21 2 [place] NASAL BID 05/11/2013 05/10/2013 Inactive AttnRPh: Saving apply/adjudicate RxGRP:SG20 RxBIN:[id number] RxPCN: ID#:[id number] Calcium with Vitamin D 600 mg-400 unit Tab RxNorm: 800611 2 Tab let(s) PO QD 12/17/2011 12/16/2011 Inactive azithromycin 250 mg Tab RxNorm: 743027 2 Tablet(s) PO Q D take 2 tablets (500 mg) by oral route once daily for 1 day then 1 tablet (250 mg) by oral route once daily for 4 days 09/18/2010 09/17/2010 Inactive metformin ER 500 mg 24 hr Tab RxNorm: 469970 1 Tablet(s) PO BID 12/29/2010 Inactive Aleve 220 mg tablet RxNorm: 947406 2 Tablet(s) PO QD 05/11/201305/10 Inactive Janumet XR 50 mg-500 mg tablet,extended release RxNorm: 1243 848 1 Tablet(s) PO QD 01/04/2018 01/03/2018 Inactive ferrous sulfate 325 mg (65 mg iron) tablet RxNorm: 390115 1 Tab let(s) PO BID 08/13/2017 08/12/2017 Inactive Cymbalta 60 mg Cap RxNorm: 604814 1 Capsule(s) PO QD 08/23/200908/22 Inactive baclofen 20 mg tablet RxNorm: 469490 1 Tablet(s) PO QHS and 1/2 tab po qam 08/13/2017 08/12/2017 Inactive Januvia 100 mg tablet RxNorm: 503294 1 Tablet(s) PO QD 04/06/2018 Inactive Multivitamin & Mineral Formula Tab RxNorm: 1 Tablet(s) PO QD 1 04/10/2013 02/07/2014 Inactive Tessalon Perle 100 mg capsule RxNorm: 1-2 Capsule(s) PO TID for cough 06/17/2012 06/16/2012 Inactive baclofen 20 mg tablet RxNorm: 070083 1/2 Tablet(s) PO Q HS and 1/2 tablet PRN during day 08/13/2017 08/12/2017 Inactive Medrol (Alexei) 4 mg Tabs in a Dose Pack RxNorm: 637389 Tablet(s) PO 1 05/02/2014 12/11/2010 Inactive as directed Flexeril 10 mg tablet RxNorm: 910562 1 Tablet(s) PO QHS for spasm 0 12/13/2013 12/12/2013 Inactive Tylenol Extra Strength 500 mg Tab RxNorm: 540440 2-3 Tablet(s) PO QHS 12/12/2010 12/11/2010 Inactive ferrous sulfate 325 mg (65 mg iron) tablet RxNorm: 484774 1 Tab let(s) PO BID 02/13/2020 02/12/2020 Inactive omeprazole 20 mg Cap, Delayed Release RxNorm: 748577 1 Capsule( s) PO QD 02/04/2010 02/03/2010 Inactive aspirin 81 mg tablet RxNorm: 566851 1 Tablet(s) PO QD 04/06/201803/17 Inactive omeprazole 20 mg capsule,delayed release RxNorm: 248159 1 Capsu le(s) PO QD 05/10/2018 05/09/2018 Inactive metformin 1,000 mg tablet RxNorm: 243729 1 Tablet(s) PO QD 02/02/20 18 01/31/2018 Inactive Synthroid 25 mcg Tab RxNorm: 078243 1 Tablet(s) PO QD 08/01/200907/14 Inactive Restasis 0.05 % Eye Dropperette RxNorm: 694819 1 Drop(s) OPH BID 06/16/2012 Inactive Flexeril 10 mg Tab RxNorm: 125273 1 Tablet(s) PO PRN 11/22/200911/21 Inactive Excedrin Extra Strength Oral RxNorm: Oral 11/04/2017 11/03/2017 Inactive Nasacort AQ 55 mcg Nasal [place] Aerosol RxNorm: 8611794 1 [place] N AMAURI BID 06/05/2010 06/04/2010 Inactive levothyroxine 25 mcg tablet RxNorm: 635281 1 Tablet(s) PO QD 201212/21/2012 Inactive tramadol 50 mg Tab RxNorm: 490946 1-2 Tablet(s) PO TID as neede d for pain 05/11/2013 05/10/2013 Inactive nystatin 100,000 unit/g Topical Powder RxNorm: 363189 Applicati on TOP BID 05/11/2013 05/10/2013 Inactive citalopram 20 mg tablet RxNorm: 676486 1 Tablet(s) PO QHS 06/24/2012 06/23/2012 Inactive Mobic 15 mg tablet RxNorm: 829204 1 Tablet(s) PO QD 02/08/20142013 Inactive ferrous sulfate 325 mg (65 mg iron) Tab RxNorm: 430019 1 Tablet (s) PO QD 04/06/2018 04/05/2018 [...] Date PNEUMOCOCCAL VACC 23 ALEXA IM CPT-4: 17213 02/13/2020 ADMIN PNEUMOCOCCAL VACCINE CPT-4: G0009 02/13/2020 URINALYSIS NONAUTO W/O SCOPE CPT-4: 29097 08/17/2019 FLU VACC PRSV FREE INC ANTIG 65 AND OLDER CPT-4: 47684 01/05/2019 FLU VACC PRSV FREE INC ANTIG 65 AND OLDER CPT-4: 33396 01/05/2019 PNEUMOCOCCAL VACC 13 ALEXA IM CPT-4: 68602 01/05/2019 ADMIN INFLUENZA VIRUS VAC CPT-4: G0008 01/05/2019 ADMIN PNEUMOCOCCAL VACCINE CPT-4: G0009 01/05/2019 INITIAL PREVENTIVE EXAM CPT-4: G0402 01/05/2019 DRAIN/INJECT JOINT/BURSA CPT-4: 01977 07/14/2016 TRIAMCINOLONE ACET INJ NOS CPT-4: J3301 07/14/2016 DEXAMETHASONE SODIUM PHOS CPT-4: J1100 07/14/2016 THER/PROPH/DIAG INJ SC/IM CPT-4: 95086 01/18/2013 METHYLPREDNISOLONE 40 MG INJ CPT-4: J1030 01/18/2013 TRIAMCINOLONE ACET INJ NOS CPT-4: J3301 01/18/2013 CEFTRIAXONE SODIUM INJECTION CPT-4: J0696 01/18/2013 THER/PROPH/DIAG INJ SC/IM CPT-4: 20994 01/18/2013 URINALYSIS NONAUTO W/O SCOPE CPT-4: 72908 06/05/2010 URINE CULTURE/ COLONY COUNT CPT-4: 10759 06/05/2010 Vital Signs Date Vital 09/25/2020 Blood Pressure 1: 126/64 Code: 8480-6 Heart Rate 1: 84 bpm Respiratory Rate: 20 bpm SpO2: 98% Temperature: 36.8 (C) / 98.2 (F) We ight: 204 lbs Code: 59194-1 06/19/2020 Blood Pressure 1: 126/74 Code: 8480-6 Heart Rate 1: 84 bpm Respiratory Rate: 20 bpm SpO2: 97% Temperature: 37.2 (C) / 99.0 (F) We ight: 205 lbs Code: 93619-0 05/14/2020 Blood Pressure 1: 136/70 Code: 8480-6 Heart Rate 1: 92 bpm Respiratory Rate: 20 bpm SpO2: 99% Temperature: 36.9 (C) / 98.4 (F) We ight: 206 lbs Code: 97119-8 02/13/2020 Blood Pressure 1: 134/82 Code: 8480-6 Heart Rate 1: 92 bpm Respiratory Rate: 20 bpm SpO2: 96% Temperature: 36.8 (C) / 98.3 (F) We ight: 207 lbs Code: 03664-0 11/08/2019 Blood Pressure 1: 136/78 Code: 8480-6 Heart Rate 1: 92 bpm Respiratory Rate: 20 bpm SpO2: 99% Temperature: 36.5 (C) / 97.7 (F) We ight: 208 lbs Code: 14599-2 08/17/2019 Blood Pressure 1: 146/70 Code: 8480-6 Heart Rate 1: 100 bpm Respiratory Rate: 20 bpm SpO2: 100% Temperature: 36.5 (C) / 97.7 (F) We ight: 204 lbs Code: 59579-7 07/20/2019 Blood Pressure 1: 136/82 Code: 8480-6 Heart Rate 1: 76 bpm Respiratory Rate: 20 bpm SpO2: 97% Temperature: 36.8 (C) / 98.2 (F) We ight: 203 lbs Code: 77284-8 04/14/2019 Blood Pressure 1: 140/78 Code: 8480-6 Heart Rate 1: 76 bpm Respiratory Rate: 20 bpm SpO2: 96% Temperature: 36.6 (C) / 97.8 (F) We ight: 202 lbs Code: 82628-1 01/05/2019 Blood Pressure 1: 130/68 Code: 8480-6 BMI: 35.6 Code: 26323-6 Heart Rate 1: 80 bpm Height: 5'3" Code: 8302-2 Respiratory Rate: 18 bpm SpO2: 98% Temperature: 36.6 (C) / 97.8 (F) Weight: 201 lbs Code: 67767-1 09/28/2018 Blood Pressure 1: 134/74 Code: 8480-6 Heart Rate 1: 84 bpm Respiratory Rate: 20 bpm SpO2: 97% Temperature: 36.8 (C) / 98.2 (F) We ight: 205 lbs Code: 76998-2 06/28/2018 Blood Pressure 1: 130/72 Code: 8480-6 Heart Rate 1: 76 bpm Respiratory Rate: 20 bpm SpO2: 95% Temperature: 36.7 (C) / 98.0 (F) We ight: 207 lbs Code: 55528-5 05/27/2018 Blood Pressure 1: 126/74 Code: 8480-6 Heart Rate 1: 76 bpm Respiratory Rate: 20 bpm Temperature: 36.9 (C) / 98.4 (F) Weight: 203 lbs Code : 78252-7 04/06/2018 Blood Pressure 1: 126/70 Code: 8480-6 BMI: 34.7 Code: 04588-7 Heart Rate 1: 80 bpm Height: 5'4" Code: 8302-2 Respiratory Rate: 20 bpm Temperatu re: 36.7 (C) / 98.0 (F) Weight: 202 lbs Code: 71466-0 02/01/2018 Blood Pressure 1: 114/60 Code: 8480-6 BMI: 33.8 Code: 50891-6 Heart Rate 1: 88 bpm Height: 5'4" Code: 8302-2 Respiratory Rate: 20 bpm SpO2: 96% Temperature: 36.7 (C) / 98.1 (F) Weight: 197 lbs Code: 11472-6 01/04/2018 Blood Pressure 1: 126/78 Code: 8480-6 BMI: 34.2 Code: 13493-3 Heart Rate 1: 76 bpm Height: 5'4" Code: 8302-2 Respiratory Rate: 20 bpm SpO2: 97% Temperature: 37.0 (C) / 98.6 (F) Weight: 199 lbs Code: 63546-7 11/04/2017 Blood Pressure 1: 134/78 Code: 8480-6 BMI: 34.8 Code: 80502-8 Heart Rate 1: 84 bpm Height: 5'4" Code: 8302-2 Respiratory Rate: 20 bpm SpO2: 98% Temperature: 37.0 (C) / 98.6 (F) Weight: 203 lbs Code: 17439-5 10/08/2017 Blood Pressure 1: 124/72 Code: 8480-6 BMI: 35.7 Code: 78048-1 Heart Rate 1: 84 bpm Height: 5'4" Code: 8302-2 Respiratory Rate: 20 bpm Temperatu re: 37.0 (C) / 98.6 (F) Weight: 208 lbs Code: 51619-5 09/03/2017 Blood Pressure 1: 142/78 Code: 8480-6 BMI: 35.7 Code: 28221-8 Heart Rate 1: 84 bpm Height: 5'4" Code: 8302-2 Respiratory Rate: 20 bpm Temperatu re: 36.6 (C) / 97.8 (F) Weight: 208 lbs Code: 92847-6 08/13/2017 Blood Pressure 1: 142/78 Code: 8480-6 BMI: 36.2 Code: 78518-1 Heart Rate 1: 76 bpm Height: 5'4" Code: 8302-2 Respiratory Rate: 20 bpm SpO2: 98% Temperature: 36.6 (C) / 97.9 (F) Weight: 211 lbs Code: 67126-3 04/22/2017 Blood Pressure 1: 126/62 Code: 8480-6 BMI: 35.0 Code: 64956-4 Heart Rate 1: 84 bpm Height: 5'4" Code: 8302-2 Respiratory Rate: 20 bpm SpO2: 96% Temperature: 36.6 (C) / 97.9 (F) Weight: 204 lbs Code: 91812-1 03/11/2017 Blood Pressure 1: 144/74 Code: 8480-6 BMI: 36.0 Code: 24337-9 Heart Rate 1: 80 bpm Height: 5'4" Code: 8302-2 Respiratory Rate: 20 bpm SpO2: 95% Temperature: 36.8 (C) / 98.3 (F) Weight: 210 lbs Code: 12390-6 12/10/2016 Blood Pressure 1: 148/80 Code: 8480-6 BMI: 36.6 Code: 72755-5 Heart Rate 1: 80 bpm Height: 5'4" Code: 8302-2 Respiratory Rate: 20 bpm SpO2: 96% Temperature: 36.6 (C) / 97.8 (F) Weight: 213 lbs Code: 44256-0 11/26/2016 Blood Pressure 1: 122/64 Code: 8480-6 BMI: 35.9 Code: 85446-8 Heart Rate 1: 72 bpm Height: 5'4" Code: 8302-2 Respiratory Rate: 20 bpm SpO2: 98% Temperature: 36.7 (C) / 98.1 (F) Weight: 209 lbs Code: 89970-7 07/14/2016 Blood Pressure 1: 146/70 Code: 8480-6 BMI: 37.4 Code: 38325-7 Heart Rate 1: 84 bpm Height: 5'4" Code: 8302-2 Respiratory Rate: 20 bpm SpO2: 98% Temperature: 36.8 (C) / 98.3 (F) Weight: 218 lbs Code: 89353-7 03/11/2016 Blood Pressure 1: 136/68 Code: 8480-6 BMI: 38.6 Code: 88733-3 Heart Rate 1: 84 bpm Height: 5'4" Code: 8302-2 Respiratory Rate: 20 bpm SpO2: 96% Temperature: 36.4 (C) / 97.6 (F) Weight: 225 lbs Code: 06781-1 11/06/2015 Blood Pressure 1: 124/62 Code: 8480-6 BMI: 37.8 Code: 26126-5 Heart Rate 1: 80 bpm Height: 5'4" Code: 8302-2 Respiratory Rate: 20 bpm Temperatu re: 36.7 (C) / 98.1 (F) Weight: 220 lbs Code: 14451-4 03/15/2015 Blood Pressure 1: 140/78 Code: 8480-6 BMI: 37.8 Code: 18503-9 Heart Rate 1: 68 bpm Height: 5'4" Code: 8302-2 Respiratory Rate: 20 bpm Temperatu re: 37.0 (C) / 98.6 (F) Weight: 220 lbs Code: 35400-1 03/01/2015 Blood Pressure 1: 142/78 Code: 8480-6 BMI: 37.8 Code: 62068-3 Heart Rate 1: 86 bpm Height: 5'4" Code: 8302-2 Respiratory Rate: 20 bpm SpO2: 95% Temperature: 36.7 (C) / 98.1 (F) Weight: 220 lbs Code: 42326-3 10/03/2014 Blood Pressure 1: 128/80 Code: 8480-6 BMI: 38.4 Code: 05681-5 Heart Rate 1: 80 bpm Height: 5'4" Code: 8302-2 Respiratory Rate: 20 bpm Temperatu re: 36.8 (C) / 98.2 (F) Weight: 224 lbs Code: 57282-6 02/08/2014 Blood Pressure 1: 158/86 Code: 8480-6 BMI: 38.8 Code: 88006-8 Heart Rate 1: 84 bpm Height: 5'4" Code: 8302-2 Respiratory Rate: 20 bpm Temperatu re: 36.7 (C) / 98.0 (F) Weight: 226 lbs Code: 23225-2 05/11/2013 Blood Pressure 1: 142/86 Code: 8480-6 BMI: 39.1 Code: 99665-4 Heart Rate 1: 80 bpm Height: 5'4" Code: 8302-2 Respiratory Rate: 20 bpm Temperatu re: 36.6 (C) / 97.8 (F) Weight: 228 lbs Code: 88600-7 01/18/2013 Blood Pressure 1: 136/82 Code: 8480-6 Heart Rate 1: 84 bpm Height: 5'4" Code: 8302-2 Respiratory Rate: 20 bpm Temperature: 36.7 (C) / 98.0 (F) Weight: Code: 58517-8 12/22/2012 Blood Pressure 1: 128/78 Code: 8480-6 Heart Rate 1: 84 bpm Respiratory Rate: 20 bpm SpO2: 98% Temperature: 36.6 (C) / 97.9 (F) We ight: Code: 75405-1 09/02/2012 Blood Pressure 1: 146/82 Code: 8480-6 Heart Rate 1: 92 bpm Respiratory Rate: 20 bpm Temperature: 37.0 (C) / 98.6 (F) Weight: 216 lbs Code : 72524-9 06/17/2012 Blood Pressure 1: 114/78 Code: 8480-6 BMI: 36.6 Code: 82009-5 Heart Rate 1: 100 bpm Height: 5'4" Code: 8302-2 Respiratory Rate: 20 bpm Temperatu re: 37.1 (C) / 98.8 (F) Weight: 213 lbs Code: 91063-6 03/15/2012 Blood Pressure 1: 122/70 Code: 8480-6 BMI: 36.9 Code: 86889-5 Heart Rate 1: 64 bpm Height: 5'4" Code: 8302-2 Temperature: 36.9 (C) / 98.4 (F) Weight: 215 lbs Code: 73168-9 12/17/2011 Blood Pressure 1: 138/80 Code: 8480-6 Heart Rate 1: 92 bpm Height: 5'4" Code: 8302-2 Respiratory Rate: 20 bpm Temperature: 36.9 (C) / 98.4 (F) Weight: Code: 43254-4 10/27/2011 Blood Pressure 1: 124/76 Code: 8480-6 BMI: 38.6 Code: 74138-2 Heart Rate 1: 80 bpm Height: 5'4" Code: 8302-2 Temperature: 36.3 (C) / 97.4 (F) Weight: 225 lbs Code: 46396-0 08/14/2011 Blood Pressure 1: 126/70 Code: 8480-6 Heart Rate 1: 88 bpm Respiratory Rate: 20 bpm Temperature: 36.7 (C) / 98.0 (F) Weight: Code: 64231- 7 07/09/2011 Blood Pressure 1: 128/80 Code: 8480-6 BMI: 37.9 Code: 28050-7 Heart Rate 1: 88 bpm Height: 5'4" Code: 8302-2 Respiratory Rate: 20 bpm Temperatu re: 36.8 (C) / 98.3 (F) Weight: 221 lbs Code: 68114-0 02/10/2011 Blood Pressure 1: 142/84 Code: 8480-6 Heart Rate 1: 68 bpm Height: Code: 8302-2 Temperature: 36.5 (C) / 97.7 (F) Weight: Code: 96190- 7 12/12/2010 Blood Pressure 1: 142/80 Code: 8480-6 Heart Rate 1: 88 bpm Temperature: 36.5 (C) / 97.7 (F) Weight: 220 lbs Code: 27439-7 09/18/2010 Blood Pressure 1: 142/78 Code: 8480-6 Heart Rate 1: 92 bpm Temperature: 36.8 (C) / 98.2 (F) Weight: 214 lbs Code: 80859-0 08/19/2010 Blood Pressure 1: 132/80 Code: 8480-6 Heart Rate 1: 96 bpm Temperature: 36.5 (C) / 97.7 (F) Weight: 211 lbs Code: 61685-5 06/05/2010 Blood Pressure 1: 126/82 Code: 8480-6 Heart Rate 1: 84 bpm Temperature: 36.9 (C) / 98.4 (F) Weight: 223 lbs Code: 43842-6 03/12/2010 Blood Pressure 1: 132/86 Code: 8480-6 Heart Rate 1: 82 bpm Temperature: 36.8 (C) / 98.2 (F) Weight: Code: 43065-0 09/19/2009 Blood Pressure 1: 150/94 Code: 8480-6 Heart Rate 1: 80 bpm Temperature: 36.6 (C) / 97.8 (F) Weight: 223 lbs Code: 18271-8 06/11/2009 BMI: 38.1 Code: 65370-1 Height: 5'4" Code: 8302- 2 Weight: 222 lbs Code: 64150-6 Functional Status No Functional Status data Reason [...] 04/22/2017 follow up 03/11/2017 follow up 12/10/2016 [facility] fwup high blood pressure 11/26/2016 pain, limb [...] CYST Encounters Encounter Performer Location Codes Date ([id number]) OFFICE/OUTPATIENT VISIT EST Diagnosis: Other malaise and fatigue[ICD10: R53.81] Diagnosis: Type 2 diabetes mellitus with hyperglycemia[ICD10: E11.65] Diagnosis: Essential hypertension[ICD10: I10] Diagnosis: Chronic major depressive disorder, recurrent episode[ICD10: F33.9] Khadijahgenet Tinoco [employer] CPT-4: 85546 09/25/2020 ([id number]) OFFICE/OUTPATIENT VISIT EST Diagnosis: Major depressive disorder, recurrent, moderate[ICD10: F33.1] Diagnosis: Thyroid nodule[ICD10: E04.1] Khadijah TUCKER SOAK ([employer])Jackie [place] PERL CPT-4: 20408 06/19/2020 ([id number]) OFFICE/OUTPATIENT VISIT EST Diagnosis: Major depressive disorder, recurrent, moderate[ICD10: F33.1] Diagnosis: Essential hypertension[ICD10: I10] Diagnosis: Type 2 diabetes mellitus without complications[ICD10: E11.9] Khadijah TUCKER SOAK ([employer])Jackei [place] PERL CPT-4: 45041 05/14/2020 ([id number]) OFFICE/OUTPATIENT VISIT EST Diagnosis: Insomnia[ICD10: G47.00] Diagnosis: Major depressive disorder, recurrent, moderate[ICD10: F33.1] Diagnosis: Essential (primary) hypertension[ICD10: I10] Diagnosis: Other spondylosis with radiculopathy, lumbosacral region[ICD10: M47.27] Diagnosis: PNEUMOCOCCAL VACCINE[ICD10: Z23] Khadijah TUCKER SOAK ([employer])Jackie [place] PERL CPT-4: 79353 02/13/2020 ([id number]) OFFICE/OUTPATIENT VISIT EST Diagnosis: Essential (primary) hypertension[ICD10: I10] Diagnosis: Type 2 diabetes mellitus with hyperglycemia[ICD10: E11.65] Diagnosis: Cough[ICD10: R05] Khadijahgenet TUCKER SOAK ([employer])Jackie [place] PERL CPT-4: 10787 11/08/2019 ([id number]) OFFICE/OUTPATIENT VISIT EST Diagnosis: Major depressive disorder, single episode, 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: F32.2] Diagnosis: Cystitis[ICD10: N30.90] Diagnosis: Sacroiliitis[ICD10: M46.1] Diagnosis: COUGH[ICD10: R05] [facility] 24636 08/17/2019 ([id number]) OFFICE/OUTPATIENT VISIT EST Diagnosis: Essential (primary) hypertension[ICD10: I10] Diagnosis: Type 2 diabetes mellitus without complications[ICD10: E11.9] Diagnosis: Chronic major depressive disorder, recurrent episode[ICD10: F33.9] Diagnosis: COUGH[ICD10: R05] Khadijah Rubypatriceizabela KHADIJAH [place] [facility] CPT-[facility]: 35882 07/20/2019 ([id number]) OFFICE/OUTPATIENT VISIT EST Diagnosis: Type 2 diabetes mellitus without complications[ICD10: E11.9] Diagnosis: Essential (primary) hypertension[ICD10: I10] Diagnosis: Hypothyroidism, unspecified[ICD10: E03.9] Diagnosis: Falls[ICD10: W19.XXXA] Diagnosis: Skin tag[ICD10: L91.8] Diagnosis: Other spondylosis with radiculopathy, lumbosacral region[ICD10: M47.27] Khadijah MAYESQUELINE CaroleJackie CLAY [employer] [facility] CPT-4: 08930 04/14/2019 ([id number]) NURSE/OUTPATIENT VISIT EST Diagnosis: FLU VACCINE[ICD10: Z23] Diagnosis: PNEUMOCOCCAL VACCINE[ICD10: Z23] Diagnosis: Encounter for general adult medical examination without abnormal findings[ICD10: Z00.00] Diagnosis: Type 2 diabetes mellitus without complications[ICD10: E11.9] Diagnosis: Essential (primary) hypertension[ICD10: I10] Diagnosis: Mixed hyperlipidemia[ICD10: E78.2] Diagnosis: Cervicalgia[ICD10: M54.2] Khadijahgenet Williamson KHADIJAH CaroleJackie TUNG HAWKINS [employer] [facility] CPT-4: 70854 01/05/2019 ([id number]) OFFICE/OUTPATIENT VISIT EST Diagnosis: Type 2 diabetes mellitus without complications[ICD10: E11.9] Diagnosis: Essential (primary) hypertension[ICD10: I10] Diagnosis: Pain in left shoulder[ICD10: M25.512] Diagnosis: Pain in left elbow[ICD10: M25.522] Diagnosis: Pleurodynia[ICD10: R07.81] Diagnosis: Epigastric pain[ICD10: R10.13] Khadijah WILLIAMSON [employer] [facility] CPT-4: 25237 09/28/2018 ([id number]) OFFICE/OUTPATIENT VISIT EST Diagnosis: Essential (primary) hypertension[ICD10: I10] Diagnosis: Type 2 diabetes mellitus without complications[ICD10: E11.9] Diagnosis: Other spondylosis with radiculopathy, lumbosacral region[ICD10: M47.27] Khadijah WILLIAMSON [employer] [facility] CPT-4: 89437 06/28/2018 ([id number]) OFFICE/OUTPATIENT VISIT EST Diagnosis: Other spondylosis with radiculopathy, lumbosacral region[ICD10: M47.27] Khadijah WILLIAMSON [employer] [facility] CPT-4: 93272 05/27/2018 ([id number]) OFFICE/OUTPATIENT VISIT EST Diagnosis: Type 2 diabetes mellitus without complications[ICD10: E11.9] Diagnosis: Essential (primary) hypertension[ICD10: I10] Diagnosis: Mixed hyperlipidemia[ICD10: E78.2] Diagnosis: Other spondylosis with radiculopathy, lumbosacral region[ICD10: M47.27] Khadijah WILLIAMSON [employer] [facility] CPT-4: 69487 04/06/2018 ([id number]) OFFICE/OUTPATIENT VISIT EST Diagnosis: Diarrhea, unspecified[ICD10: R19.7] Diagnosis: Other spondylosis with radiculopathy, lumbosacral region[ICD10: M47.27] Khadijah WILLIAMSON [employer] [facility] CPT-4: 45864 02/01/2018 ([id number]) OFFICE/OUTPATIENT VISIT EST Diagnosis: Diarrhea, unspecified[ICD10: R19.7] Diagnosis: Other spondylosis with radiculopathy, lumbosacral region[ICD10: M47.27] Khadijahgenet WILLIAMSON [facility] CPT-4: 21048 01/04/2018 ([id number]) OFFICE/OUTPATIENT VISIT EST Diagnosis: Other spondylosis with radiculopathy, lumbosacral region[ICD10: M47.27] Diagnosis: Epigastric pain[ICD10: R10.13] Khadijah WILLIAMSON [facility] CPT-4: 32315 11/04/2017 ([id number]) OFFICE/OUTPATIENT VISIT EST Diagnosis: Epigastric pain[ICD10: R10.13] Khadijah WILLIAMSON DO [facility] CPT-4: [address] 10/08/2017 ([id number]) OFFICE/OUTPATIENT VISIT EST Diagnosis: Major depressive disorder, recurrent, moderate[ICD10: F33.1] Khadijah WILLIAMSON [facility] CPT-4: 02709 09/03/2017 ([id number]) OFFICE/OUTPATIENT VISIT EST Diagnosis: URI, ACUTE[ICD10: J06.9] Diagnosis: Type 2 diabetes mellitus without complications[ICD10: E11.9] Diagnosis: Major depressive disorder, single episode, 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: F32.2] Diagnosis: Other spondylosis with radiculopathy, lumbosacral region[ICD10: M47.27] Khadijah WILLIAMSON [facility] CPT-4: 84053 08/13/2017 OFFICE/OUTPATIENT VISIT EST Diagnosis: Type 2 diabetes mellitus without complications[ICD10: E11.9] Diagnosis: Essential (primary) hypertension[ICD10: I10] Diagnosis: Other spondylosis with radiculopathy, lumbosacral region[ICD10: M47.27] Diagnosis: Cervicalgia[ICD10: M54.2] Khadijah LEE [facility] CPT-4: 80312 04/22/2017 ([id number]) OFFICE/OUTPATIENT VISIT EST Diagnosis: Type 2 diabetes mellitus without complications[ICD10: E11.9] Diagnosis: Essential (primary) hypertension[ICD10: I10] Diagnosis: Other spondylosis with radiculopathy, lumbosacral region[ICD10: M47.27] Diagnosis: Localized enlarged lymph nodes[ICD10: R59.0] Khadijah WILLIAMSON [employer] [facility] CPT-4: 71959 03/11/2017 ([id number]) OFFICE/OUTPATIENT VISIT EST Diagnosis: Infectious gastroenteritis and colitis, unspecified[ICD10: A09] Diagnosis: Other spondylosis with radiculopathy, lumbosacral region[ICD10: M47.27] Khadijah WILLIAMSON [facility] CPT-4: 43811 12/10/2016 ([id number]) PREV VISIT EST AGE 40-64 Diagnosis: Encounter for general adult medical examination without abnormal findings[ICD10: Z00.00] Diagnosis: Type 2 diabetes mellitus without complications[ICD10: E11.9] Diagnosis: Hypothyroidism, unspecified[ICD10: E03.9] Diagnosis: Mixed hyperlipidemia[ICD10: E78.2] Diagnosis: Essential (primary) hypertension[ICD10: I10] Diagnosis: Other spondylosis with radiculopathy, lumbosacral region[ICD10: M47.27] Khadijah WILLIAMSON [facility] CPT-4: 41486 11/26/2016 ([id number]) OFFICE/OUTPATIENT VISIT EST Diagnosis: Type 2 diabetes mellitus without complications[ICD10: E11.9] Diagnosis: Mixed hyperlipidemia[ICD10: E78.2] Diagnosis: Essential (primary) hypertension[ICD10: I10] Diagnosis: Hypothyroidism, unspecified[ICD10: E03.9] Khadijah WILLIAMSON [facility] CPT-4: 64364 03/11/2016 OFFICE/OUTPATIENT VISIT EST Diagnosis: Type 2 diabetes mellitus without complications[ICD10: E11.9] Diagnosis: Essential (primary) hypertension[ICD10: I10] Diagnosis: Mixed hyperlipidemia[ICD10: E78.2] Diagnosis: 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] Khadijah WILLIAMSON [facility] CPT-4: 36343 11/06/2015 ([id number]) PREV VISIT EST AGE 40-64 Diagnosis: Encounter for general adult medical examination without abnormal findings[ICD10: Z00.00] Diagnosis: Acute bronchitis, unspecified[ICD10: J20.9] Diagnosis: Type 2 diabetes mellitus with hyperglycemia[ICD10: E11.65] Diagnosis: Hypothyroidism, unspecified[ICD10: E03.9] Diagnosis: Essential (primary) hypertension[ICD10: I10] Khadijah SABALINE CaroleJackie CLAY [facility] CPT-4: 51458 03/15/2015 OFFICE/OUTPATIENT VISIT EST Diagnosis: Acute bronchitis, unspecified[ICD10: J20.9] Lety ChawlaAnjelicaleland LamJackie CLAY [facility] CPT-4: 00793 03/01/2015 OFFICE/OUTPATIENT VISIT EST Diagnosis: DM W/O COMPLICATION TYPE II[ICD9: 250.00] Diagnosis: HYPOTHYROIDISM[ICD9: 244.9] Diagnosis: HYPERTENSION[ICD9: 401.9] Khadijah SABALINE CaroleJackie TUNG LEE [facility] CPT-4: 84884 10/03/2014 ([id number]) OFFICE/OUTPATIENT VISIT EST Diagnosis: DM W/O COMPLICATION TYPE II[ICD9: 250.00] Diagnosis: HYPERTENSION[ICD9: 401.9] Diagnosis: DEPRESSIVE DISORDER NEC[ICD9: 311] Khadijah PRADO ANTHONY [facility]: 14264 02/08/2014 ([id number]) OFFICE/OUTPATIENT VISIT EST Diagnosis: OSTEOARTHRISIS MULTI SITES[ICD9: 715.98] Diagnosis: LUMB/LUMBOSAC DISC DEGEN[ICD9: 722.52] Diagnosis: DM W/O COMPLICATION TYPE II[ICD9: 250.00] Khadijah Tungrosa KHADIJAH CaroleJackie CLAY [facility] CPT-4: 47228 05/11/2013 ([id number]) OFFICE/OUTPATIENT VISIT EST Diagnosis: SINUSITIS, ACUTE[ICD9: 461.9] Diagnosis: BRONCHITIS, ACUTE[ICD9: 466.0] Khadijah Clay KHADIJAH Carole Jackie CLAY [facility] CPT-4: 48439 01/18/2013 ([id number]) OFFICE/OUTPATIENT VISIT EST Diagnosis: SINUSITIS, ACUTE[ICD9: 461.9] Diagnosis: BRONCHITIS, ACUTE[ICD9: 466.0] Khadijah Tungrosa TUCKER Carole Jackie CLAY [facility] CPT-4: 03340 12/22/2012 ([id number]) OFFICE/OUTPATIENT VISIT EST Diagnosis: MALAISE AND FATIGUE[ICD9: 780.79] Diagnosis: Apnea[ICD9: 786.03] Diagnosis: DEPRESSIVE DISORDER NEC[ICD9: 311] Khadijah CRUZ CaroleJackie CLAY [employer] [facility] CPT-4: 42631 09/02/2012 ([id number]) OFFICE/OUTPATIENT VISIT EST Diagnosis: DM W/O COMPLICATION TYPE II, UNCONTROLLED[ICD9: 250.02] Diagnosis: MALAISE AND FATIGUE[ICD9: 780.79] Diagnosis: HYPOTHYROIDISM[ICD9: 244.9] Diagnosis: HYPERTENSION[ICD9: 401.9] Diagnosis: Tinea cruris[ICD9: 110.3] Khadijah TUCKER CaroleJackie TUNG LEE [employer] [facility] CPT-4: 76749 06/17/2012 OFFICE/OUTPATIENT VISIT EST Diagnosis: COUGH[ICD9: 786.2] Khadijah TUCKER CaroleJackie RAMESH [employer] [facility] CPT-4: 28057 03/15/2012 OFFICE/OUTPATIENT VISIT EST Diagnosis: LUMB/LUMBOSAC DISC DEGEN[ICD9: 722.52] Diagnosis: Radiculopathy[ICD9: 729.2] Khadijah Tinoco EDWARD FERRARIER [employer] [facility] CPT-4: 92140 12/17/2011 ([id number]) OFFICE/OUTPATIENT VISIT EST Diagnosis: EDEMA[ICD9: 782.3] Diagnosis: ALLERGIC RHINITIS[ICD9: 477.9] Khadijah TUCKER Carole Jackie RAMESH [employer] [facility] CPT-4: 70980 10/27/2011 ([id number]) OFFICE/OUTPATIENT VISIT EST Diagnosis: DM W/O COMPLICATION TYPE II, UNCONTROLLED[ICD9: 250.02] Diagnosis: ANEMIA IRON DEFICIENCY[ICD9: 280.9] Diagnosis: LUMB/LUMBOSAC DISC DEGEN[ICD9: 722.52] Diagnosis: NEURALGIA/NEURITIS[ICD9: 729.2] [facility] [employer] [facility] CPT-4: 19500 08/14/2011 ([id number]) OFFICE/OUTPATIENT VISIT EST Diagnosis: LUMB/LUMBOSAC DISC DEGEN[ICD9: 722.52] Diagnosis: Radiculopathy[ICD9: 729.2] Diagnosis: DM W/O COMPLICATION TYPE II[ICD9: 250.00] Khadijah WILLIAMSON DO [facility] CPT-4: 80600 07/09/2011 OFFICE/OUTPATIENT VISIT EST Diagnosis: SINUSITIS, ACUTE[ICD9: 461.9] Diagnosis: COUGH[ICD9: 786.2] Khadijah WILLIAMSON DO [facility] CPT-4: 61504 02/10/2011 OFFICE/OUTPATIENT VISIT EST Diagnosis: DM W/O COMPLICATION TYPE II[ICD9: 250.00] Diagnosis: MALAISE AND FATIGUE[ICD9: 780.79] Diagnosis: DEPRESSIVE DISORDER NEC[ICD9: 311] Diagnosis: BRONCHITIS, ACUTE[ICD9: 466.0] Khadijah WILLIAMSON DO [facility] CPT-4: 00880 12/12/2010 OFFICE/OUTPATIENT VISIT EST Khadijah RUBY NDER [facility] CPT- 4: 84709 09/18/2010 ([id number]) OFFICE/OUTPATIENT VISIT EST Khadijah NAIK SJackie RUBYNDER DO [facility] CPT-4: 89888 08/19/2010 ([id number]) OFFICE/OUTPATIENT VISIT EST Khadijah NAIK SJackie ORENDER DO [facility] CPT-4: 54762 06/05/2010 ([id number]) OFFICE/OUTPATIENT VISIT, EST Khadijah DE LA CRUZ SJackie RUBYNDER DO [facility] CPT-4: 04339 03/12/2010 ([id number]) OFFICE/OUTPATIENT VISIT, EST Khadijah DE LA CRUZ S. TUNGNDER DO [facility] CPT-4: 54403 09/19/2009 ([id number]) OFFICE/OUTPATIENT VISIT, EST Khadijah DE LA CRUZ S. TUNGNDER DO [facility] CPT-4: 05594 06/11/2009 Plan of Care Planned Activity Notes [...] 250.02 ICD-10 : E11.65 09/25/2020 Appointment: Khadijah Williamsontel: [address] [place], [place] [phone] [place] FOLLOW UP 09/25/2020 Visit Diagnosis Plan: Thyroid nodule Discussion: Christiane Evans in May--had biopsy done ICD-9 : 241.0 ICD-10 : E04.1 06/19/2020 Visit Diagnosis Plan: Major depressive disorder, recur rent, moderate Discussion: Continue citalopram and Wellbutrin ICD-9 : 296.32 ICD-10 : F33.1 06/19/2020 Appointment: Khadijah Williamson WPtel: [address] [place], [place] [phone] [place] FOLLOW UP 06/19/2020 Visit Diagnosis Plan: [...] 401.9 ICD-10 : I10 05/14/2020 Appointment: Khadijah Williamsontel: [facility] [place] [place] FOLLOW UP 05/14/2020 Patient Education: citalopram- [employer] Coupon [id number] https://www.[place]/sampleClutch.io/resources/getResource/61/ca219z20-4f22-1x37-20 Completed 05/14/2020 Visit Diagnosis Plan: Essential (primary) [...] : F33.1 02/13/2020 Appointment: Khadijah Williamson WPtel: [address] [place], [place] [phone] [place] FOLLOW UP 02/13/2020 Patient Education: amitriptyline- [employer] Coupon 13 [id number] https://www.[place]/samplemd/resources/getResource/61/d3oy48f3-597j-95un-hz Completed 02/13/2020 Appointment: [facility] [phone] [facility] [facility]ULED 02/02/2020 Visit Diagnosis Plan: Essential [...] : R05 11/08/2019 Appointment: [facility]hadijah Williamson [facility]el[facility] [phone] [facility] [facility] 11/08/2019 Care Plan: COMPREHEN METABOLIC PANEL [place] : 46182-2 Pending 10/31/2019 Care Plan: LIPID PANEL LOINC : 32307-5 Pending 10/31/2019 Care Plan: A1C HPLC LOINC : 12219-0 Pending 10/31/2019 Care Plan: COMPLETE CBC W/AUTO DIFF WBC LOINC : 84719-6 Pending 10/31/2019 Visit Diagnosis Plan: Sacroiliitis Discussion: [...] : N30.90 08/17/2019 Appointment: Khadijah Williamson WPtel: [address] [place], [place] [address] FOLLOW UP 08/17/2019 Patient Education: Wellbutrin XL- [employer] Coupon 11 [id number] https://www.[place]/samplemd/resources/getResource/61/xwi806n1-70z9-2971-s4 Completed 08/17/2019 Care Plan: CHEST X-RAY 2VW FRONTAL&LATL LOINC : 64347-1 Pending 08/17/2019 Visit Diagnosis Plan: Type 2 [...] : R05 07/20/2019 Appointment: Khadijah Williamson WPtel: [address] [place] [address] FOLLOW UP 07/20/2019 Patient Education: Wellbutrin XL- [employer] Coupon 11 [id number] https://www.[place]/sampleClutch.io/resources/getResource/61/c9i7s07b-2180-7w0m-u6 Completed 07/20/2019 Patient Education: cefdinir- [employer] Coupon [id number] https://www.[place]/sampleClutch.io/resources/getResource/61/2r408w85-nw92-6q36-52 Completed 07/20/2019 Visit Diagnosis Plan: Essential (primary) [...] : M47.27 04/14/2019 Appointment: Khadijah Williamson WPtel: [facility] [place] US FOLLOW UP 04/14/2019 Visit Diagnosis Plan: Type 2 diabetes mellitus without complications Discussion: Lab discussed Accuchecks daily Continue current meds Check CMP and HbA1C in 3mos then fwup ICD-9 : 250.00 ICD-10 : E11.9 01/05/2019 Visit Diagnosis Plan: Cervicalgia Discussion: Discusse d x-ray results ICD-9 : 723.1 ICD-10 : M54.2 01/05/2019 Visit Diagnosis Plan: Encounter for [facility] adult medical examination without abnormal findings Discussion: Mediterranean diet Combinati on of cardio and weight bearing exercise Flu and Prevnar 13 given Bone Density ordered Recommend Shingrix ICD-9 : V70.9 ICD-10 : Z00.00 01/05/2019 Appointment: Khadijah Williamson [facility]el[facility] [phone] [facility] 3 mo WELCOME TO MEDICARE 01/05/2019 Care Plan: X-RAY EXAM OF SHOULDER Left Shoulder x-rays LOINC : 40897-0 Pending 09/30/2018 Visit Diagnosis Plan: Type 2 [...] R07.81 09/28/2018 Appointment: Khadijah Williamson WPtel: [phone] [place] [place] [address] [place] FOLLOW UP 09/28/2018 Visit Diagnosis Plan: [...] 722.52 ICD-10 : M47.27 06/28/2018 Appointment: Khadijah Williamsontel: [address] [place] [address] [place] FOLLOW UP 06/28/2018 Visit Diagnosis Plan: Other spondylosis with radiculop athy, lumbosacral region Discussion: Trial of Celebrex 200mg po BID Recheck 4 weeks Discussed repeat SI joint injection Follow Up: 4 weeks ICD-9 : 722.52 ICD-10 : M47.27 05/27/2018 Appointment: Khadijah Williamsontel: [address] [place] [address] US FOLLOW UP 05/27/2018 Visit Diagnosis Plan: [...] : E11.9 04/06/2018 Appointment: Khadijah Williamson WPtel: [address] [place] [address] US FOLLOW UP 04/06/2018 Visit Diagnosis Plan: [...] 722.52 ICD-10 : M47.27 02/01/2018 Appointment: Khadijah Williamson WPtel: [address] [place] [address] US FOLLOW UP 02/01/2018 Visit Diagnosis Plan: [...] : M47.27 01/04/2018 Appointment: Khadijah Williamson WPtel: [address] [place] [address] US FOLLOW UP 01/04/2018 Patient Education: Patient [...] : M47.27 11/04/2017 Appointment: Khadijah Williamson WPtel: [address] [place], [place] [address] US FOLLOW UP 11/04/2017 Patient Education: Patient Medication Summary Completed 11/04/2017 Care Plan: Referral Order SNOMED-CT : [id number] Pending 11/04/2017 Care Plan: MRI LUMBAR SPINE W/DYE LOINC : 48043-2 Pending 11/04/2017 Visit Diagnosis Plan: Epigastric pain Discussion: Stop meloxicam No NSAIDs [place] diet DC omeprazole Dexilant 60mg po BID Follow Up: 2 weeks ICD-9 : 789.06 ICD-10 : R10.13 10/08/2017 Appointment: Khadijah Williamson WPtel: [address] [place] [place] [phone] 10/08/2017 Patient Education: Patient Medication Summary Completed 10/08/2017 Visit Diagnosis Plan: Major depressive disorder, recur rent, moderate Discussion: Increase cymbalta to 60mg daily Follow Up: 2 months ICD-9 : 296.32 ICD-10 : F33.1 09/03/2017 Appointment: Khadijah Williamson WPtel: [address] [place], [place] [phone] FOLLOW UP 09/03/2017 Patient Education: Patient Medication Summary Completed 09/03/2017 Appointment: Khadijah Williamson WPtel: [address] [place] [address] RESCHEDULED 08/31/2017 Visit Diagnosis Plan: URI, ACUTE [...] : E11.9 08/13/2017 Appointment: Khadijah Williamson WPtel: [address] [place], [place] [phone] [place] FOLLOW UP 08/13/2017 Patient Education: Patient Medication Summary Completed 08/13/2017 Patient Education: Patient Medication Summary Completed 06/01/2017 Care Plan: MRI NECK SPINE W/O DYE LOINC : 84288-7 Pending 06/01/2017 Visit Diagnosis Plan: Essential (primary) [...] : E11.9 04/22/2017 Appointment: Khadijah Williamson WPtel: [facility] [place] [facility] 04/22/2017 Patient Education: Patient [...] 250.00 ICD-10 : E11.9 03/11/2017 Appointment: Khadijah Williamsontel: [address] [place] [address] FOLLOW UP 03/11/2017 Patient Education: Patient Medication Summary Completed 03/11/2017 Care Plan: US EXAM OF HEAD AND NECK LOIN C : 64700-3 Pending 03/11/2017 Visit Diagnosis Plan: Infectious gastroenteritis and c olitis, unspecified Discussion: Resolved ICD-9 : 558.9 ICD-10 : A09 12/10/2016 Visit Diagnosis Plan: Other spondylosis with radiculop athy, lumbosacral region Discussion: Continue mobic and lyrica Call in 1month on how doing ICD-9 : 722.52 ICD-10 : M47.27 12/10/2016 Appointment: Khadijah Williamson WPtel: [address] [place] [address] Hospital Follow Up 12/10/2016 Patient Education: Patient Medication Summary Completed 12/10/2016 Visit Diagnosis Plan: Other spondylosis with radiculop athy, lumbosacral region Discussion: Trial of lyrica 75mg q HS Call in 2 weeks on how doing Discussed repeat PT vs epidural but patient states would need to be after football season ICD-9 : 722.52 ICD-10 : M47.27 11/26/2016 Visit Diagnosis Plan: Encounter for [facility] adult medical examination without abnormal findings Discussion: Update fasting lab ICD-9 : V70.9 ICD-10 : Z00.00 11/26/2016 Visit Diagnosis Plan: Type 2 diabetes mellitus without complications Discussion: Accuchecks daily Check HbA1C Follow Up: 3 months ICD-9 : 250.00 ICD-10 : E11.9 11/26/2016 Visit Diagnosis Plan: Essential (primary) hypertension Discussion: Stable ICD-9 : 401.9 ICD-10 : I10 11/26/2016 Appointment: Khadijah Williamson WPtel: [address] [place], [place] [phone] Annual Well Visit 11/26/2016 Patient Education: Patient Medication Summary Completed 11/26/2016 Visit Diagnosis Plan: Trochanteric bursitis, left hip Discussion: Injection as above Start IT band stretches Call in 1 week on how doing If persists then will likely do PT ICD-9 : 726.5 ICD-10 : M70.62 07/14/2016 Appointment: Khadijah Williamson WPtel: [address] [place], [place] [phone] 07/10 confirmed `sl ESTABLISHED PATIENT 7 Patient Education: Patient Medication Summary Completed 07/14/2016 Visit Plan: Update fasting lab Lots of s tiki with family illnesses Accuchecks daily Retiring at the end of this week 03/11/2016 Appointment: Khadijah Williamson WPtel: [address] [place], [place] [phone] 03/11 confirmed~sl FOLLOW UP 03/11/2016 Patient Education: [...] for veins 11/06/2015 Appointment: Khadijah Williamson WPtel: [address] [place], [place] [phone] 11/05 confirmed ~sl FOLLOW UP 11/06/2015 Patient Education: Patient Medication Summary Completed 11/06/2015 Patient Education: [facility] - Saving AutoInj - 18-64 - Dynamic Jass l ID Completed 11/06/2015 Patient Education: Janumet XR - 18-64 - TAHMINA - No CA [place] MA Completed 11/06/2015 Patient Education: Patient Medication Summary Completed 10/15/2015 Care Plan: CBC Pending 10/15/2015 Care Plan: LIPID PANEL LOINC : 41990-9 Pending 10/15/2015 Care Plan: A1C HPLC LOINC : 39477-5 Pending 10/15/2015 Care Plan: ASSAY OF FREE THYROXINE Pendin g 10/15/2015 Care Plan: ASSAY THYROID STIM HORMONE Pen ding 10/15/2015 Care Plan: COMPREH[place]AB[place] : 26289-8 Pending 10/15/2015 Visit Plan: Update fasting lab Check Josep mogram Daily stretches for right leg sciatica but if persists will likely need updated MRI due to history of fusion Accuchecks daily Due for colonoscopy in 2019 unless has bowel changes 03/15/2015 Appointment: Khadijah Williamson WPtel: [phone] [facility] 03/14/15 appt confirmed cn Annual Well Visit Patient Education: Patient Medication Summary Completed 03/15/2015 Care Plan: MAMMOGRAM SCREENING LOINC : 2 6347-5 Ordered 03/15/2015 Visit Plan: Continue Mucinex DM Cefdinir x 10 days Medrol dose pack Albuterol 0.83% soln. INH - SVN three times daily 03/01/2015 Appointment: Lety England [facility]Ptel[facility] [phone] [facility] [facility] 03/01/2015 Patient Education: Patient Medication Summary Completed 03/01/2015 Patient Education: [facility] - Saving AutoInj - 18-64 - Dynamic Jass l ID Completed 03/01/2015 Visit Plan: Lab discussed Hold fish oil for 1month and see if gas improves Accuchecks daily Decrease iron to one daily If gas does not improve with holding fish oil then will try holding metformin 10/03/2014 Appointment: Khadijah Williamson [facility]Ptel: [phone] [facility] 10/02 no answer cn...10/03 no answer home tried cell vm not set up cn FOLLOW UP 10/03/2014 Patient Education: Patient Medication Summary Completed 10/03/2014 Patient Education: Patient Medication Summary Completed 09/25/2014 Care Plan: CBC Ordered 09/25/2014 Visit Plan: Moniter BP at home and work Check fasting lab Restart Citalopram Rec daily accuchecks 02/08/2014 Appointment: Khadijah Williamsontel: [address] [place] [address] Annual Well Visit 02/08/2014 Patient Education: Patient [...] fasting lab 05/11/2013 Appointment: Khadijah Williamson WPtel: [address] [place] [address] 05/10 no answer FOLLOW UP 05/11/2013 Patient Education: Patient Medication Summary Completed 05/11/2013 Patient Education: Celebrex - 18+ - No MA NE Completed 05/11/2013 Patient Education: [facility] - Saving AutoInj - 18+ - Dynamic Portal ID Completed 05/11/2013 Appointment: Khadijah Williamson WPtel: [address] [place] [address] FOLLOW UP 01/18/2013 Patient Education: Patient Medication Summary Completed 01/18/2013 Patient Education: [facility] - Saving AutoInj - 18+ - Dynamic Portal ID Completed 01/18/2013 Visit Plan: Supportive care. Rest, Fluid s, Tylenol/Motrin prn fever or bodyaches. Notify if worsening symptoms. 12/22/2012 Appointment: Khadijah Williamson WPtel: [address] [place], [place] [phone] 12/22/2012 Patient Education: Patient Medication Summary Completed 12/22/2012 Visit Plan: Sleep Study Continue citalop lawanda at 20mg q HS DC synthroid Check CBC, B12, iron 09/02/2012 Appointment: Khadijah Williamson WPtel: [address] [place], [place] [phone] 09/01 no answer FOLLOW UP 09/02/2012 Patient Education: Patient Medication Summary Completed 09/02/2012 Visit Plan: Check fasting lab Diflucan a nd Nystatin cream 06/17/2012 Appointment: Khadijah Williamson WPtel: [address] [place] [address] 06/16 no answer FOLLOW UP 06/17/2012 Patient [...] for chest x-ray (PA/LAT)-pt wants to use [facility]. 03/15/2012 Appointment: Elsy Hendrickson WPtel: [address] [place] [address] ACUTE ILLNESS 03/15/2012 Patient Education: Patient Medication Summary Completed 03/15/2012 Visit Plan: See neurosurgery to discuss surgical options Discussed endoscopic spinal surgery Continue tramadol prn and use hydrocodone for severe pain 12/17/2011 Appointment: Khadijah Williamson WPtel: [address] [place] [address] 12/15 no answer FOLLOW UP 12/17/2011 Patient Education: Patient Medication Summary Completed 12/17/2011 Visit Plan: Strict 2gm Na Diet and suppo rt stockings Start Loratadine 10mg po Q HS Nasonex 2 sprays each nostil BID 10/27/2011 Appointment: Khadijah Williamson WPtel: [address] [place] [address] no answer ACUTE ILLNESS 10/27/2011 Patient Education: Patient Medication Summary Completed 10/27/2011 Visit Plan: Change metformin to Kombigly ze ER 5/1000mg daily Continue accuchecks Check Hemoccult card--will likely need colonoscopy Start iron DC Gralise Lyrica 75mg q HS for 3wks then call 08/14/2011 Appointment: Khadijah Williamson WPtel: [address] [place] [address] FOLLOW UP 08/14/2011 Patient Education: Patient Medication Summary Completed 08/14/2011 Visit Plan: Repeat PT for 2-4wks Trial o f Gralise--starter pack given Use tramadol 50mg 1-2 po TID prn pain 07/09/2011 Appointment: Khadijah Williamson WPtel: [address] [place] [address] FOLLOW UP 07/09/2011 Patient Education: Patient Medication Summary Completed 07/09/2011 Visit Plan: Cefuroxime axetil. Discussed that will notify if symptoms worsen or do not improve. Will monitor for fever. Nasonex sample given. Encouraged rest and fluids. 02/10/2011 Appointment: Elsy Hendrickson WPtel: [address] [place] [address] ACUTE ILLNESS 02/10/2011 Patient Education: Patient Medication Summary Completed 02/10/2011 Appointment: Khadijah Williamson WPtel: [address] [place] [address] FOLLOW UP 12/12/2010 Patient Education: Patient Medication Summary Completed 12/12/2010 Visit Plan: Add Medrol Dose Pack Continu e celexa and abilify 09/18/2010 Appointment: Khadijah Williamson WPtel: [address] [place] [address] FOLLOW UP 09/18/2010 Patient Education: Patient Medication Summary Completed 09/18/2010 Appointment: Khadijah Williamson WPtel: [address] [place] [address] FOLLOW UP 08/19/2010 Patient Education: Patient Medication Summary Completed 08/19/2010 Visit Plan: Change Cymbalta to Wellbutri n XL 150mg q AM for 1wk then 300mg QD Check fasting lab 06/05/2010 Appointment: Khadijah Williamson WPtel: [address] [place], [place] [phone] FOLLOW UP 06/05/2010 Patient Education: Patient Medication Summary Completed 06/05/2010 Appointment: Khadijah Williamson WPtel: [address] [place], [place] [phone] ACUTE ILLNESS 03/12/2010 Patient Education: Patient Medication Summary Completed 03/12/2010 Visit Plan: Saline nasal flushes prn. Ty lenol/Motrin prn headache. Notify if persists/symptoms worsening. Pt has Biaxin at home and will start Check MRI L/S spine Fwup pending MRI results 09/19/2009 Appointment: Khadijah Williamson WPtel: [address] [place], [place] [phone] 09/19/2009 Patient Education: Patient Medication Summary Completed 09/19/2009 Visit Plan: Discussed referral to ortho for cyst--defers at this time 06/11/2009 Appointment: Khadijah iWlliamson WPtel: [address] [place], [place] [id number] ESTABLISHED PATIENT 06/11/2009 Patient Education: Patient Medication Summary Completed 06/11/2009 Referral: Dennis Adorno WPtel: [address] [place] [address] [id number] [place] Referral Initiated Referral: Juanito Oneill WPtel: [facility] [address] [place] Referral Appointment Requested Instructions Comment [...]
--- OUTSIDE RECORDS SUMMARY | 2021-01-04 10:49 | XMS REPORT | CCD ---
Author Author Alana Williamson D.O. Organization [facility] Address [address] [place] [address] Phone Care Team Providers Care Marking Room Supervisor Name Role Phone Khadijah Williamson D.O., PP Unavailable CCM Unavailable Summary Purpose Interface Exchange Insurance Providers Payer name Policy type / Coverage type Covered alliance party ID Effective Begin Date Effective End Date WPS MEDICARE [place] B [place] Medicare Part B [id number] 2018 Unknown [employer] Medicare Part B [id number] Unknown Family History Family History data not found Social History Social History Element Codes Description Effective Dates Tobacco history SNOMED CT: 773972944 Unknown if ever smoked 09/13 Allergies, Adverse Reactions, Alerts Substance Reaction Codes Entered Date Inactivated Date Status _ Unknown 06/11/2009 No Inactive Date Active Milk _ Unknown 06/11/2009 No Inactive Date Active MORPHINE SULFATE _ RxNorm: 9432532 06/11/2009 No Inactive Da te Active * [...] Start Date Stop Date Status Fill Instructions citalopram 10 mg tablet RxNorm: 293305 Take 1 tablet by mouth o nce daily 11/05/2020 02/02/2021 Active cyclobenzaprine 10 mg tablet RxNorm: 675493 2-1 Table t(s) Oral three times a day as needed for muscle spasm 09/25/2020 10/14/2020 Inactive cyclobenzaprine 10 mg tablet RxNorm: 009822 2-1 Table t(s) Oral three times a day as needed for muscle spasm 09/25/2020 10/14/2020 Inactive fenofibrate micronized 134 mg capsule RxNorm: 312132 Ta ke 1 capsule by mouth once daily 08/27/2020 11/24/2020 Active citalopram 10 mg tablet RxNorm: 005745 Take 1 tablet by mouth o nce daily 08/06/2020 08/06/2020 Inactive atenolol 25 mg tablet RxNorm: 618515 Take 1 tablet by mouth onc e daily Oral 07/30/2020 01/25/2021 Active amitriptyline 10 mg tablet RxNorm: 046914 1-2 Tablet(s) Oral QPM as needed for sleep 06/05/2020 06/05/2020 Inactive omeprazole 20 mg capsule,delayed release RxNorm: 077478 1 Capsu le(s) Oral QD 06/05/2020 12/01/2020 Active cyclobenzaprine 10 mg tablet RxNorm: 255163 1/2-1 Table t(s) Oral three times a day as needed for muscle spasm 06/05/2020 06/05/2020 Inactive losartan 100 mg tablet RxNorm: 187201 1 Tablet(s) Oral every ni ght at bedtime 05/31/2020 11/26/2020 Active fenofibrate micronized 134 mg capsule RxNorm: 378319 Ta ke 1 capsule by mouth once daily 05/21/2020 05/21/2020 Inactive Wellbutrin XL 300 mg 24 hr tablet, extended release RxNorm: 390906 1 Tablet(s) Oral QAM 05/16/2020 11/11/2020 Active Celebrex 200 mg capsule RxNorm: 715684 1 Capsule(s) Ora l two times a day for pain 05/16/2020 08/13/2020 Inactive citalopram 10 mg tablet RxNorm: 381986 1 Tablet(s) Oral QD 05/15/1908/05/2020 Inactive omeprazole 20 mg capsule,delayed release RxNorm: 089788 Take 1 capsule by mouth once daily 03/05/2020 06/04/2020 Inactive fenofibrate micronized 134 mg capsule RxNorm: 867268 Ta ke 1 capsule by mouth once daily 02/20/2020 05/19/2020 Inactive amitriptyline 10 mg tablet RxNorm: 167580 1-2 Tablet(s) Oral QPM as needed for sleep 02/13/2020 06/04/2020 Inactive Celebrex 200 mg capsule RxNorm: 110416 TAKE 1 CAPSULE B Y MOUTH TWICE DAILY FOR PAIN 01/30/2020 05/15/2020 Inactive cyclobenzaprine 10 mg tablet RxNorm: 012804 TAKE 1/2 TO 1 (ONE-HALF TO ONE) TABLET BY MOUTH THREE TIMES DAILY NEEDED FOR MUSCLE SPASM 01/30/2020 06/04/2020 Inactive losartan 100 mg tablet RxNorm: 949673 TAKE 1 TABLET BY MOUTH ONCE DAILY AT BEDTIME 11/09/2019 05/30/2020 Inactive fenofibrate micronized 134 mg capsule RxNorm: 761834 1 Capsule( s) Oral QD 11/09/2019 02/06/2020 Inactive Wellbutrin XL 300 mg 24 hr tablet, extended release RxNorm: 724399 1 Tablet(s) Oral QAM 11/09/2019 05/15/2020 Inactive omeprazole 20 mg capsule,delayed release RxNorm: 677895 1 Capsu le(s) Oral QD 11/09/2019 02/06/2020 Inactive atenolol 25 mg tablet RxNorm: 146916 Take 1 tablet by mouth onc e daily 11/09/2019 07/29/2020 Inactive atenolol 25 mg tablet RxNorm: 552791 Take 1 tablet by mouth onc e daily 10/31/2019 11/08/2019 Inactive Celebrex 200 mg capsule RxNorm: 997757 TAKE 1 CAPSULE B Y MOUTH TWICE DAILY FOR PAIN 10/03/2019 11/01/2019 Inactive cyclobenzaprine 10 mg tablet RxNorm: 524251 TAKE 1/2 TO 1 (ONE-HALF TO ONE) TABLET BY MOUTH THREE TIMES DAILY NEEDED FOR MUSCLE SPASM 10/03/2019 11/11/2019 Inactive losartan 100 mg tablet RxNorm: 518258 TAKE 1 TABLET BY MOUTH ONCE DAILY AT BEDTIME 08/30/2019 11/08/2019 Inactive fenofibrate micronized 134 mg capsule RxNorm: 404033 1 Capsule( s) Oral QD 08/22/2019 11/08/2019 Inactive Wellbutrin XL 300 mg 24 hr tablet, extended release RxNorm: 795451 1 Tablet(s) Oral QAM 08/17/2019 11/08/2019 Inactive cyclobenzaprine 10 mg tablet RxNorm: 808795 TAKE 1/2 TO 1 (ONE-HALF TO ONE) TABLET BY MOUTH THREE TIMES DAILY NEEDED FOR MUSCLE SPASM 08/01/2019 08/20/2019 Inactive Xyzal 5 mg tablet RxNorm: 563486 1 Tablet(s) Oral QD 07/20/[address] op Date Active Wellbutrin XL 150 mg 24 hr tablet, extended release RxNorm: 063975 1 Tablet(s) Oral QAM replaces duloxetine 07/20/2019 02/12/2020 Inactive Tylenol Extra Strength 500 mg tablet RxNorm: 360181 2 T ablet(s) Oral two times a day 07/20/2019 05/13/2020 Inactive cefdinir 300 mg capsule RxNorm: 735976 1 Capsule(s) Oral two ti mes a day 07/20/2019 08/03/2019 Inactive duloxetine 60 mg capsule,delayed release RxNorm: 026597 1 Capsu le(s) Oral QD 06/09/2019 07/19/2019 Inactive omeprazole 20 mg capsule,delayed release RxNorm: 742644 TAKE 1 CAPSULE BY MOUTH ONCE DAILY 06/09/2019 06/08/2019 Inactive omeprazole 20 mg capsule,delayed release RxNorm: 758154 1 Capsu le(s) Oral QD 06/09/2019 09/07/2019 Inactive losartan 100 mg tablet RxNorm: 492037 TAKE 1 TABLET BY MOUTH ONCE DAILY AT BEDTIME 05/30/2019 08/27/2019 Inactive fenofibrate micronized 134 mg capsule RxNorm: 568166 TA KE 1 CAPSULE BY MOUTH ONCE DAILY 05/26/2019 08/21/2019 Inactive duloxetine 60 mg capsule,delayed release RxNorm: 852527 TAKE 1 CAPSULE BY MOUTH ONCE DAILY, REPLACES 30MG DOSE 05/19/2019 06/08/2019 Inactive atenolol 25 mg tablet RxNorm: 545957 1 Tablet(s) Oral QD 04/27/2019 0 10/23/2019 Inactive duloxetine 60 mg capsule,delayed release RxNorm: 999291 TAKE 1 CAPSULE BY MOUTH ONCE DAILY, REPLACES 30MG DOSE 04/18/2019 05/17/2019 Inactive cyclobenzaprine 10 mg tablet RxNorm: 100799 TAKE 1/2 TO 1 (ONE-HALF TO ONE) TABLET BY MOUTH THREE TIMES DAILY NEEDED FOR MUSCLE SPASM 03/29/2019 05/07/2019 Inactive Celebrex 200 mg capsule RxNorm: 247805 TAKE 1 CAPSULE B Y MOUTH TWICE DAILY FOR PAIN 03/29/2019 05/27/2019 Inactive losartan 100 mg tablet RxNorm: 401979 TAKE 1 TABLET BY MOUTH ONCE DAILY AT BEDTIME 03/07/2019 05/29/2019 Inactive duloxetine 60 mg capsule,delayed release RxNorm: 702413 TAKE 1 CAPSULE BY MOUTH ONCE DAILY, REPLACES 30MG DOSE 02/15/2019 04/17/2019 Inactive duloxetine 60 mg capsule,delayed release RxNorm: 550399 TAKE 1 CAPSULE BY MOUTH ONCE DAILY, REPLACES 30MG DOSE 12/14/2018 02/14/2019 Inactive omeprazole 20 mg capsule,delayed release RxNorm: 678964 TAKE 1 CAPSULE BY MOUTH ONCE DAILY 12/14/2018 06/09/2019 Inactive fenofibrate micronized 134 mg capsule RxNorm: 486484 1 Capsule( s) PO QD 11/23/2018 05/25/2019 Inactive duloxetine 60 mg capsule,delayed release RxNorm: 569531 TAKE 1 CAPSULE BY MOUTH ONCE DAILY, REPLACES 30MG DOSE 10/11/2018 12/13/2018 Inactive losartan 100 mg tablet RxNorm: 170360 TAKE 1 TABLET BY MOUTH EVERY DAY AT BEDTIME 09/01/2018 03/06/2019 Inactive fenofibrate micronized 134 mg capsule RxNorm: 427109 1 Capsule( s) PO QD 08/24/2018 11/22/2018 Inactive Celebrex 200 mg capsule RxNorm: 854494 1 Capsule(s) PO BID for pain 07/29/2018 11/25/2018 Inactive cyclobenzaprine 10 mg tablet RxNorm: 648864 1/2-1 Table t(s) PO TID as needed for muscle spasm 07/29/2018 03/28/2019 Inactive cyclobenzaprine 10 mg tablet RxNorm: 419677 1/2-1 Table t(s) PO TID as needed for muscle spasm 06/11/2018 07/28/2018 Inactive Celebrex 200 mg capsule RxNorm: 456414 1 Capsule(s) PO BID for pain 05/27/2018 07/25/2018 Inactive fenofibrate micronized 134 mg capsule RxNorm: 287442 TA KE 1 CAPSULE BY MOUTH ONCE DAILY 05/24/2018 08/24/2018 Inactive omeprazole 20 mg capsule,delayed release RxNorm: 005029 1 Capsu le(s) PO QD 05/10/2018 05/09/2018 Inactive omeprazole 20 mg capsule,delayed release RxNorm: 218438 1 Capsu le(s) PO QD 05/10/2018 11/05/2018 Inactive atenolol 25 mg tablet RxNorm: 696103 1 Tablet(s) PO QD 05/10/201801/2020 Inactive atenolol 25 mg tablet RxNorm: 176611 1 Tablet(s) PO QD 05/10/2018 Inactive losartan 100 mg tablet RxNorm: 387644 1 Tablet(s) PO QHS 04/12/2018 0 08/31/2018 Inactive Januvia 50 mg tablet RxNorm: 560387 1 Tablet(s) PO QD 04/06/201809/13 Inactive duloxetine 60 mg capsule,delayed release RxNorm: 935665 TAKE 1 CAPSULE BY MOUTH ONCE DAILY, REPLACES 30MG DOSE 03/10/2018 10/10/2018 Inactive losartan 100 mg tablet RxNorm: 667095 TAKE 1 TABLET BY MOUTH AT BEDTIME 01/04/2018 04/12/2018 Inactive cyclobenzaprine 10 mg tablet RxNorm: 650497 TAKE 1/2 TO 1 (ONE-HALF TO ONE) TABLET BY MOUTH THREE TIMES DAILY NEEDED FOR MUSCLE SPASM 12/24/2017 06/11/2018 Inactive duloxetine 60 mg capsule,delayed release RxNorm: 799938 TAKE 1 CAPSULE BY MOUTH ONCE DAILY, REPLACES 30MG DOSE 12/08/2017 03/09/2018 Inactive fenofibrate micronized 134 mg capsule RxNorm: 471289 1 Capsule( s) PO QD 11/23/2017 05/21/2018 Inactive atenolol 25 mg tablet RxNorm: 518201 1 Tablet(s) PO QD 11/09/2017 Inactive losartan 100 mg tablet RxNorm: 009975 1 Tablet(s) PO QHS REPLAC ES 50MG DOSE 10/02/2017 12/30/2017 Inactive losartan 100 mg tablet RxNorm: 947003 TAKE ONE TABLET B Y MOUTH ONCE DAILY AT BEDTIME - REPLACES 50MG DOSE 09/08/2017 10/02/2017 Inactive cyclobenzaprine 10 mg tablet RxNorm: 012992 1/2-1 Table t(s) PO TID as needed for muscle spasm 09/03/2017 2017 Inactive duloxetine 60 mg capsule,delayed release RxNorm: 068223 1 Capsule(s) PO QD replaces 30mg dose 09/03/2017 12/01/2017 Inactive fenofibrate micronized 134 mg capsule RxNorm: 625896 1 Capsule( s) PO QD 08/18/2017 11/23/2017 Inactive omeprazole 20 mg capsule,delayed release RxNorm: 372616 Capsule(s) TAKE ONE CAPSULE BY MOUTH ONCE DAILY 08/18/2017 05/10/2018 Inactive metformin 1,000 mg tablet RxNorm: 979404 1 Tablet(s) PO QAM rep mary gracemichel Janumet 08/13/2017 10/07/2017 Inactive prednisone 20 mg tablet RxNorm: 515755 1 Tablet(s) PO T ID for 3 days then 1 po BID for 3 days then one daily for 3 days 08/13/2017 09/02/2017 Inactiv e Cymbalta 30 mg capsule,delayed release RxNorm: 616992 1 Capsule (s) PO QD 08/13/2017 09/02/2017 Inactive citalopram 40 mg tablet RxNorm: 813717 1 Tablet(s) PO QD 06/09/2017 0 08/12/2017 Inactive meloxicam 15 mg tablet RxNorm: 033700 1 Tablet(s) PO QD 1 Tablet(s) PO QD TAKE ONE TABLET BY MOUTH ONCE DAILY FOR PAIN 05/05/2017 10/07/2017 Inactive fenofibrate micronized 134 mg capsule RxNorm: 300604 1 Capsule( s) PO QD 05/05/2017 08/18/2017 Inactive atenolol 25 mg tablet RxNorm: 797570 1 Tablet(s) PO QD 05/05/2017 Inactive Janumet XR 50 mg-1,000 mg tablet,extended release RxNorm: 12 27730 1 Tablet(s) PO QAM replaces 100mg/1000mg dose 04/22/2017 08/12/2017 Inactive Lyrica 75 mg capsule RxNorm: 812139 1 Capsule(s) PO BID 04/22/2017 Inactive Janumet XR 100 mg-1,000 mg tablet,extended release RxNorm: 1 089493 1 Tablet(s) PO QD 03/11/2017 04/21/2017 Inactive losartan 100 mg tablet RxNorm: 517705 1 Tablet(s) PO QHS replac es 50mg dose 03/11/2017 09/06/2017 Inactive cyclobenzaprine 10 mg tablet RxNorm: 285077 1 Tablet(s) PO TID Tablet(s) 1 Tablet(s) PO TID as needed for muscle spasm 02/04/2017 05/31/2017 Inac tive cyclobenzaprine 10 mg tablet RxNorm: 163950 1 Tablet(s) PO TID Tablet(s) 1 Tablet(s) PO TID as needed for muscle spasm 02/04/2017 02/03/2017 Inac tive omeprazole 20 mg capsule,delayed release RxNorm: 603026 Capsule(s) TAKE ONE CAPSULE BY MOUTH ONCE DAILY 01/05/2017 08/18/2017 Inactive Janumet XR 100 mg-1,000 mg tablet,extended release RxNorm: 1 264279 1 Tablet(s) PO QD 01/05/2017 03/05/2017 Inactive citalopram 40 mg tablet RxNorm: 293764 1 Tablet(s) PO QD 12/03/2016 0 06/09/2017 Inactive atenolol 25 mg tablet RxNorm: 783858 1 Tablet(s) PO QD 11/06/2016 Inactive cyclobenzaprine 10 mg tablet RxNorm: 766003 1 Tablet(s) PO TID Tablet(s) 1 Tablet(s) PO TID as needed for muscle spasm 11/05/2016 02/04/2017 Inac tive Janumet XR 100 mg-1,000 mg tablet,extended release RxNorm: 1 034831 1 Tablet(s) PO QD Due for fasting labs 11/05/2016 01/05/2017 Inactive fenofibrate micronized 134 mg capsule RxNorm: 273629 1 Capsule( s) PO QD 11/05/2016 05/05/2017 Inactive meloxicam 15 mg tablet RxNorm: 127362 1 Tablet(s) PO QD 1 Tablet(s) PO QD TAKE ONE TABLET BY MOUTH ONCE DAILY FOR PAIN 11/05/2016 05/05/2017 Inactive atenolol 25 mg tablet RxNorm: 592872 1 Tablet(s) PO QD 08/07/2016 Inactive cyclobenzaprine 10 mg tablet RxNorm: 596898 Tablet(s) T ablet(s) 1 Tablet(s) PO TID as needed for muscle spasm 08/07/2016 11/05/2016 Inactive Cozaar 50 mg tablet RxNorm: 894285 1 Tablet(s) PO QHS for BP 201603/10/2017 Inactive Cozaar 50 mg tablet RxNorm: 850785 1 Tablet(s) PO QHS for BP 201607/27/2016 Inactive meloxicam 15 mg tablet RxNorm: 827016 1 Tablet(s) PO QD TAKE ONE TABLET BY MOUTH ONCE DAILY FOR PAIN 05/07/2016 11/05/2016 Inactive omeprazole 20 mg capsule,delayed release RxNorm: 941879 TAKE ONE CAPSULE BY MOUTH ONCE DAILY 04/28/2016 01/05/2017 Inactive citalopram 40 mg tablet RxNorm: 102713 1 Tablet(s) PO QD 04/28/2016 0 12/03/2016 Inactive fenofibrate micronized 134 mg capsule RxNorm: 320763 1 Capsule( s) PO QD 03/11/2016 11/05/2016 Inactive Janumet XR 100 mg-1,000 mg tablet,extended release RxNorm: 1 296592 1 Tablet(s) PO QD Due for fasting labs 03/11/2016 11/05/2016 Inactive Cozaar 50 mg tablet RxNorm: 428450 1 Tablet(s) PO QHS for BP 201507/28/2016 Inactive citalopram 40 mg tablet RxNorm: 765615 1 Tablet(s) PO QD 03/11/2016 0 04/09/2016 Inactive cyclobenzaprine 10 mg tablet RxNorm: 709431 Tablet(s) 1 Tablet(s) PO TID as needed for muscle spasm 02/11/2016 08/07/2016 Inactive citalopram 20 mg tablet RxNorm: 390411 TAKE ONE TABLET BY MOUTH AT BEDTIME 12/17/2015 03/10/2016 Inactive atenolol 25 mg tablet RxNorm: 873114 1 Tablet(s) PO QD 11/06/2015 Inactive meloxicam 15 mg tablet RxNorm: 520287 1 Tablet(s) PO QD TAKE ONE TABLET BY MOUTH ONCE DAILY FOR PAIN 11/06/2015 05/03/2016 Inactive Janumet XR 100 mg-1,000 mg tablet,extended release RxNorm: 1 746463 1 Tablet(s) PO QD Due for fasting labs 11/06/2015 03/10/2016 Inactive fenofibrate micronized 134 mg capsule RxNorm: 727157 1 Capsule( s) PO QD 11/06/2015 03/10/2016 Inactive cyclobenzaprine 10 mg tablet RxNorm: 486936 Tablet(s) 1 Tablet(s) PO TID as needed for muscle spasm 11/06/2015 01/04/2016 Inactive Cozaar 50 mg tablet RxNorm: 876958 1 Tablet(s) PO QHS for BP 201503/01/2016 Inactive Janumet XR 100 mg-1,000 mg tablet,extended release RxNorm: 1 862478 1 Tablet(s) PO QD Due for fasting labs 09/04/2015 11/05/2015 Inactive atenolol 25 mg tablet RxNorm: 953107 TAKE ONE TABLET BY MOUTH O NCE DAILY 07/17/2015 08/07/2016 Inactive omeprazole 20 mg capsule,delayed release RxNorm: 567779 1 Capsu le(s) PO QD 07/09/2015 02/03/2016 Inactive cyclobenzaprine 10 mg tablet RxNorm: 193830 Tablet(s) 1 Tablet(s) PO TID as needed for muscle spasm 06/12/2015 08/10/2015 Inactive citalopram 20 mg tablet RxNorm: 896824 1 Tablet(s) PO QHS 06/12/2015 12/08/2015 Inactive meloxicam 15 mg tablet RxNorm: 559230 Tablet(s) TAKE ON E TABLET BY MOUTH ONCE DAILY FOR PAIN 05/16/2015 11/05/2015 Inactive atenolol 25 mg tablet RxNorm: 721729 1 Tablet(s) PO QD 05/11/2015 Inactive fenofibrate micronized 134 mg capsule RxNorm: 503509 1 Capsule( s) PO QD 05/11/2015 11/05/2015 Inactive omeprazole 20 mg capsule,delayed release RxNorm: 505656 1 Capsu le(s) PO QD 04/17/2015 07/08/2015 Inactive doxycycline hyclate 100 mg capsule RxNorm: 4574770 1 Capsule(s) PO BID 03/15/2015 03/24/2015 Inactive Cozaar 50 mg tablet RxNorm: 243695 1 Tablet(s) PO QHS for BP 201409/04/2015 Inactive Janumet XR 100 mg-1,000 mg tablet,extended release RxNorm: 1 180020 1 Tablet(s) PO QD 03/15/2015 09/04/2015 Inactive albuterol sulfate 2.5 mg/3 mL (0.083 %) solution for n ebulization RxNorm: 272857 3 Milliliter(s) INH TID INHALE ONE VIAL PER NEBULIZER 03/01/2015 11/05/2015 Inactive Medrol (Alexei) 4 mg tablets in a dose pack RxNorm: 058619 Tablet(s) PO as directed 03/01/2015 03/14/2015 Inactive as directed cefdinir 300 mg capsule RxNorm: 604343 2 Capsule(s) PO QD 03/01/2015 03/10/2015 Inactive Janumet XR 100 mg-1,000 mg tablet,extended release RxNorm: 1 954636 1 Tablet(s) PO QD Needs fasting labs 02/19/2015 03/15/2015 Inactive Janumet XR 100 mg-1,000 mg tablet,extended release RxNorm: 1 527560 1 Tablet(s) PO QD Needs fasting labs 01/23/2015 02/19/2015 Inactive omeprazole 20 mg capsule,delayed release RxNorm: 045517 1 Capsu le(s) PO QD 01/23/2015 04/16/2015 Inactive citalopram 20 mg tablet RxNorm: 177155 1 Tablet(s) PO QHS 12/18/2014 06/12/2015 Inactive cyclobenzaprine 10 mg tablet RxNorm: 409465 1 Tablet(s) PO TID as needed for muscle spasm 11/13/2014 06/12/2015 Inactive fenofibrate micronized 134 mg capsule RxNorm: 226978 1 Capsule(s) PO QD -patient is due for fasting labs 11/13/2014 05/11/2015 Inactive meloxicam 15 mg tablet RxNorm: 918944 TAKE ONE TABLET B Y MOUTH ONCE DAILY FOR PAIN 11/13/2014 05/16/2015 Inactive atenolol 25 mg tablet RxNorm: 826682 1 Tablet(s) PO QD - due fo r labs 11/13/2014 05/11/2015 Inactive omeprazole 20 mg capsule,delayed release RxNorm: 053994 1 Capsu le(s) PO QD 10/16/2014 01/23/2015 Inactive atenolol 25 mg tablet RxNorm: 123886 1 Tablet(s) PO QD - due fo r labs 10/11/2014 11/09/2014 Inactive [AttnRPh: Saving christina ly/adjudicate RxGRP:SG20 RxBIN:[id number] RxPCN:HT ID#:[id number]] fenofibrate micronized 134 mg capsule RxNorm: 209558 1 Capsule(s) PO QD -patient is due for fasting labs 10/11/2014 04/13/2019 Inactive [AttnRPh : Saving apply/adjudicate RxGRP:SG20 RxBIN:[id number] RxPCN:HT ID#:[id number]] fenofibrate micronized 134 mg capsule RxNorm: 050718 1 Capsule(s) PO QD -patient is due for fasting labs 09/12/2014 10/11/2014 Inactive [AttnRPh : Saving apply/adjudicate RxGRP:SG20 RxBIN:[id number] RxPCN:HT ID#:[id number]] atenolol 25 mg tablet RxNorm: 940692 1 Tablet(s) PO QD - due fo r labs 09/12/2014 10/11/2014 Inactive [AttnRPh: Saving christina ly/adjudicate RxGRP:SG20 RxBIN:[id number] RxPCN:HT ID#:[id number]] meloxicam 15 mg tablet RxNorm: 380758 1 Tablet(s) PO QD for pain 11/06/2014 Inactive citalopram 20 mg tablet RxNorm: 987453 1 Tablet(s) PO Q HS TAKE ONE TABLET BY MOUTH AT BEDTIME 08/09/2014 12/18/2014 Inactive cyclobenzaprine 10 mg tablet RxNorm: 429761 1 Tablet(s) PO TID as needed for muscle spasm 08/09/2014 09/07/2014 Inactive Janumet XR 100 mg-1,000 mg tablet,extended release RxNorm: 1 700312 Tablet(s) 1 Tablet(s) PO QD 07/19/2014 01/23/2015 Inactive fenofibrate micronized 134 mg capsule RxNorm: 606406 1 Capsule( s) PO QD 06/06/2014 09/12/2014 Inactive [AttnRPh: Saving christina ly/adjudicate RxGRP:SG20 RxBIN:[id number] RxPCN:HT ID#:[id number]] cyclobenzaprine 10 mg tablet RxNorm: 895702 1 Tablet(s) PO TID as needed for muscle spasm 06/06/2014 07/05/2014 Inactive fenofibrate micronized 134 mg capsule RxNorm: 785653 1 Capsule( s) PO QD 03/10/2014 03/09/2014 Inactive fenofibrate micronized 134 mg capsule RxNorm: 650770 1 Capsule( s) PO QD 03/10/2014 06/06/2014 Inactive meloxicam 15 mg tablet RxNorm: 157618 1 Tablet(s) PO QD for pain 08/09/2014 Inactive citalopram 20 mg tablet RxNorm: 842558 1 Tablet(s) PO QHS 02/08/2014 08/09/2014 Inactive [AttnRPh: Saving apply/adjudicate RxGRP: SG20 RxBIN:[id number] RxPCN:HT ID#:[id number]] Flexeril 10 mg tablet RxNorm: 093777 1 Tablet(s) PO QHS for spasm 0 12/13/2013 06/06/2014 Inactive [AttnRPh: Saving apply/adjud icate RxGRP:SG20 RxBIN:[id number] RxPCN:HT ID#:[id number]] meloxicam 15 mg tablet RxNorm: 005446 1 Tablet(s) PO QD TAKE ONE TABLET BY MOUTH ONCE DAILY FOR PAIN 12/13/2013 02/12/2014 Inactive omeprazole 20 mg capsule,delayed release RxNorm: 307868 2 Capsu le(s) PO QD 12/13/2013 03/12/2014 Inactive Janumet XR 100 mg-1,000 mg tablet,extended release RxNorm: 1 440298 1 Tablet(s) PO QD 10/20/2013 07/19/2014 Inactive Janumet XR 100 mg-1,000 mg tablet,extended release RxNorm: 1 603687 1 Tablet(s) PO QD 10/18/2013 10/19/2013 Inactive atenolol 25 mg tablet RxNorm: 320650 1 Tablet(s) PO QD 08/31/2013 Inactive [AttnRPh: Saving apply/adjudicate RxGRP: SG20 RxBIN:[id number] RxPCN:HT ID#:[id number]] Janumet XR 100 mg-1,000 mg tablet,extended release RxNorm: 1 539293 1 Tablet(s) PO QD 07/12/2013 10/09/2013 Inactive baclofen 10 mg tablet RxNorm: 605541 1 Tablet(s) PO BID for spasm 0 05/11/2013 09/07/2013 Inactive AttnRPh: Saving apply/adjudi vika RxGRP:SG20 RxBIN:[id number] RxPCN: ID#:[id number] Celebrex 200 mg capsule RxNorm: 478947 1 Capsule(s) PO BID for pain 05/11/2013 09/07/2013 Inactive Janumet XR 100 mg-1,000 mg tablet,extended release RxNorm: 1 068104 1 Tablet(s) PO QD 04/21/2013 07/12/2013 Inactive omeprazole 20 mg capsule,delayed release RxNorm: 185478 2 Capsu le(s) PO QD 02/28/2013 12/13/2013 Inactive Janumet XR 100 mg-1,000 mg tablet,extended release RxNorm: 1 702205 1 Tablet(s) PO QD 01/20/2013 01/19/2013 Inactive Janumet XR 100 mg-1,000 mg tablet,extended release RxNorm: 1 776680 1 Tablet(s) PO QD 01/20/2013 04/21/2013 Inactive clindamycin 300 mg capsule RxNorm: 368177 2 Capsule(s) PO TID 01/1801/27/2013 Inactive AttnRPh: Saving apply/adjudi vika RxGRP:SG20 RxBIN:[id number] RxPCN: ID#:[id number] cefdinir 300 mg capsule RxNorm: 760522 2 Capsule(s) PO QD 12/22/2012 01/04/2013 Inactive Kombiglyze XR 5 mg-1,000 mg tablet,extended release RxNorm: 4617628 1 Tablet(s) PO QD 10/11/2012 01/19/2013 Inactive Kombiglyze XR 5 mg-1,000 mg tablet,extended release RxNorm: 1756434 1 Tablet(s) PO QD 10/11/2012 05/26/2018 Inactive atenolol 25 mg tablet RxNorm: 202350 1 Tablet(s) PO QD 09/27/2012 Inactive Abilify 2 mg tablet RxNorm: 223642 1 Tablet(s) PO QAM 09/27/201204/17 Inactive atenolol 25 mg tablet RxNorm: 887896 1 Tablet(s) PO QD 09/02/2012 Inactive omeprazole 20 mg capsule,delayed release RxNorm: 082873 2 Capsu le(s) PO QD 07/13/2012 07/12/2012 Inactive omeprazole 20 mg capsule,delayed release RxNorm: 042058 2 Capsu le(s) PO QD 07/13/2012 01/08/2013 Inactive Kombiglyze XR 5 mg-1,000 mg tablet,extended release RxNorm: 7975593 1 Tablet(s) PO QD 07/12/2012 10/09/2012 Inactive citalopram 20 mg tablet RxNorm: 870904 1 Tablet(s) PO QHS 06/24/2012 09/01/2012 Inactive Flexeril 10 mg tablet RxNorm: 309118 1 Tablet(s) PO TID 06/24/2012 Inactive as needed for spasms. Generic ok. Diflucan 100 mg tablet RxNorm: 821205 1 Tablet(s) PO QD 06/17/2012 Inactive Kombiglyze XR 5 mg-1,000 mg tablet,extended release RxNorm: 6854994 1 Tablet(s) PO QD 04/12/2012 07/10/2012 Inactive doxycycline monohydrate 100 mg tablet RxNorm: 2806776 1 Tablet(s ) PO BID 03/15/2012 03/24/2012 Inactive Kombiglyze XR 5 mg-1,000 mg tablet,extended release RxNorm: 6642330 1 Tablet(s) PO QD need updated lab 03/02/2012 05/26/2018 Inactive Kombiglyze XR 5 mg-1,000 mg tablet,extended release RxNorm: 6801606 1 Tablet(s) PO QD 03/02/2012 03/01/2012 Inactive Kombiglyze XR 5 mg-1,000 mg tablet,extended release RxNorm: 8618065 1 Tablet(s) PO QD 03/02/2012 03/31/2012 Inactive Flexeril 10 mg tablet RxNorm: 925130 1 Tablet(s) PO TID 02/25/2012 Inactive as needed for spasms. Generic ok. citalopram 20 mg tablet RxNorm: 535845 1 Tablet(s) PO QD 12/17/2011 0 06/13/2012 Inactive Lyrica 75 mg capsule RxNorm: 207597 1 Capsule(s) PO QHS 12/03/2011 Inactive Abilify 2 mg tablet RxNorm: 764059 1 Tablet(s) PO QAM 12/03/20110 05/2012 Inactive Flexeril 10 mg tablet RxNorm: 435216 1 Tablet(s) PO TID 12/03/2011 Active as needed for spasms. Generic ok. Lyrica 75 mg capsule RxNorm: 160182 1 Capsule(s) PO QHS 09/22/2011 Inactive Flexeril 10 mg tablet RxNorm: 674315 1 Tablet(s) PO TID 08/18/2011 Active as needed for spasms. Generic ok. meloxicam 15 mg tablet RxNorm: 455032 1 Tablet(s) PO QD 08/14/2011 Inactive prn pain atenolol 25 mg tablet RxNorm: 908774 1 Tablet(s) PO QD 08/14/2011 Inactive Abilify 2 mg tablet RxNorm: 346922 1 Tablet(s) PO QAM 06/16/201109/15 Inactive citalopram 20 mg tablet RxNorm: 912344 1 Tablet(s) PO QD 06/16/2011 0 12/12/2011 Inactive metformin ER 500 mg 24 hr Tab RxNorm: 964535 1 Tablet(s) PO BID 08/13/2011 Inactive Abilify 2 mg Tab RxNorm: 636332 1 Tablet(s) PO QAM 02/10/2011 012 Inactive cefuroxime axetil 500 mg Tab RxNorm: 230090 1 Tablet(s) PO BID 01/1502/19/2011 Inactive metformin ER 500 mg 24 hr Tab RxNorm: 049701 1 Tablet(s) PO BID 04/28/2011 Inactive Abilify 2 mg Tab RxNorm: 096402 1 Tablet(s) PO QAM 12/12/2010 011 Inactive doxycycline 100 mg Cap RxNorm: 9406432 1 Capsule(s) PO BID 12/13/19 11 12/18/2010 Inactive citalopram 20 mg Tab RxNorm: 419873 1 Tablet(s) PO QD 12/12/201003/2011 Inactive Abilify 2 mg Tab RxNorm: 355822 1 Tablet(s) PO QAM 12/11/2010 011 Inactive citalopram 20 mg Tab RxNorm: 321757 1 Tablet(s) PO QD 11/11/201011/15 Inactive Abilify 2 mg Tab RxNorm: 207158 1 Tablet(s) PO QAM 10/14/2010 011 Inactive Flexeril 10 mg Tab RxNorm: 752646 1 Tablet(s) PO TID a s needed for spasms. Generic ok. 08/30/2010 08/29/2010 Active citalopram 20 mg Tab RxNorm: 073487 1 Tablet(s) PO QD 08/19/201010/15 Inactive Abilify 2 mg Tab RxNorm: 629417 1 Tablet(s) PO QAM 08/19/2010 011 Inactive Synthroid 25 mcg Tab RxNorm: 018510 1 Tablet(s) PO QD 07/03/201011/14 Inactive meloxicam 15 mg Tab RxNorm: 854711 1 Tablet(s) PO QD prn pain 06/0505/30/2011 Inactive atenolol 25 mg Tab RxNorm: 420666 1 Tablet(s) PO QD 06/05/20102011 Inactive Wellbutrin XL 300 mg 24 hr Tab RxNorm: 302328 1 Tablet(s) PO QAM 08/03/2010 Inactive Flexeril 10 mg Tab RxNorm: 253166 1 Tablet(s) PO TID as needed for spasms 06/05/2010 06/04/2010 Active metformin ER 500 mg 24 hr Tab RxNorm: 267887 1 Tablet(s) PO BID 12/01/2010 Inactive omeprazole 20 mg capsule,delayed release RxNorm: 014240 2 Capsu le(s) PO QD 06/05/2010 07/13/2012 Inactive metformin ER 500 mg 24 hr Tab RxNorm: 885572 1 Tablet(s) PO 010 06/04/2010 Inactive doxycycline 100 mg Cap RxNorm: 0664555 1 Capsule(s) PO BID 03/12/20 10 03/21/2010 Inactive omeprazole 20 mg Cap, Delayed Release RxNorm: 745470 2 Capsule( s) PO QD 02/04/2010 06/04/2010 Inactive Synthroid 25 mcg Tab RxNorm: 099422 1 Tablet(s) PO QD 01/14/201005/16 Inactive metformin 500 mg Tab RxNorm: 159760 1 Tablet(s) PO BID 12/21/2009 Inactive Cymbalta 60 mg Cap RxNorm: 642677 1 Capsule(s) PO QD 11/22/200908/18 Inactive Flexeril 10 mg Tab RxNorm: 930112 1 Tablet(s) PO PRN 11/22/200911/21 Active atenolol 25 mg Tab RxNorm: 688319 1 Tablet(s) PO QD 10/08/20092010 Inactive Synthroid 25 mcg Tab RxNorm: 773209 1 Tablet(s) PO QD 08/01/200912/14 Inactive meloxicam 15 mg Tab RxNorm: 363352 1 Tablet(s) PO QD prn pain 07/2306/04/2010 Inactive Avelox 400 mg Tab RxNorm: 164424 1 Tablet(s) PO QD 06/11/2009 010 Inactive Cymbalta 60 mg Cap RxNorm: 161898 1 Capsule(s) PO QD 05/20/200911/15 Inactive Vitamin C Oral RxNorm: Oral 06/11/2009 Active ferrous sulfate 325 mg (65 mg iron) tablet RxNorm: 432248 1 Tab let(s) PO BID 10/03/2014 Active PreserVision AREDS 2 250 mg-200 unit-40 mg-1 mg capsule RxNo rm: 1 Capsule(s) PO BID 10/03/2014 Active Vitamin D3 5,000 unit tablet RxNorm: 622061 1 Tablet(s) PO QD 014 Active Tylenol Extra Strength 500 mg tablet RxNorm: 660929 2 T ablet(s) PO QHS as needed 06/17/2012 Active Flexeril 10 mg Tab RxNorm: 005482 1 Tablet(s) PO TID as needed for spasms 06/05/2010 06/04/2010 Inactive Atenolol 25 mg Tab RxNorm: 957422 1 Tablet(s) PO QD 10/08/20092009 Inactive Lyrica 75 mg capsule RxNorm: 424578 1 Capsule(s) PO QD 04/22/201708/2017 Inactive ferrous sulfate 325 mg (65 mg iron) tablet RxNorm: 571427 1 Tab let(s) PO QD 02/13/2020 02/12/2020 Inactive Fish Oil 1,000 mg capsule RxNorm: 3 Capsule(s) PO QD 11/06/2015 Inactive Iron (ferrous sulfate) 325 mg (65 mg iron) tablet RxNorm: 31 0325 1 Tablet(s) PO BID 05/11/2013 05/10/2013 Inactive omeprazole 20 mg capsule,delayed release RxNorm: 674968 1 Capsu le(s) PO QD 10/16/2014 10/15/2014 Inactive Lyrica 75 mg capsule RxNorm: 097085 1 Capsule(s) PO BID 08/13/2017 Inactive hydrocodone-acetaminophen 5 mg-500 mg tablet RxNorm: 013040 1-2 Tablet(s) PO TID as needed for pain 02/08/2014 02/07/2014 Inactive ferrous sulfate 325 mg (65 mg iron) tablet RxNorm: 044062 1 Tab let(s) PO BID 08/13/2017 08/12/2017 Inactive ferrous sulfate 325 mg (65 mg iron) tablet RxNorm: 101455 1 Tab let(s) PO QD 02/13/2020 02/12/2020 Inactive Abilify 2 mg Tab RxNorm: 282608 1 Tablet(s) PO QD 08/19/2010 08/19/19 11 Inactive Januvia 50 mg tablet RxNorm: 464725 1 Tablet(s) PO QD 04/06/201803/17 Inactive Vitamin D 1,000 unit Cap RxNorm: 505221 1 Capsule(s) PO QD 06/06/19 11 06/04/2010 Inactive Meloxicam 15 mg Tab RxNorm: 970171 1 Tablet(s) PO QD 07/23/200907/22 Inactive Darvocet-N 100 100 mg-650 mg Tab RxNorm: 275524 Tablet(s) PO PRN 06/04/2010 Inactive Flonase 50 mcg/actuation nasal spray,suspension RxNorm: 8963 21 2 Oriska NASAL BID 05/11/2013 05/10/2013 Inactive AttnRPh: Saving apply/adjudicate RxGRP:SG20 RxBIN:[id number] RxPCN: ID#:[id number] Calcium with Vitamin D 600 mg-400 unit Tab RxNorm: 229856 2 Tab let(s) PO QD 12/17/2011 12/16/2011 Inactive azithromycin 250 mg Tab RxNorm: 962645 2 Tablet(s) PO Q D take 2 tablets (500 mg) by oral route once daily for 1 day then 1 tablet (250 mg) by oral route once daily for 4 days 09/18/2010 09/17/2010 Inactive metformin ER 500 mg 24 hr Tab RxNorm: 774996 1 Tablet(s) PO BID 12/29/2010 Inactive Aleve 220 mg tablet RxNorm: 631659 2 Tablet(s) PO QD 05/11/201305/10 Inactive Janumet XR 50 mg-500 mg tablet,extended release RxNorm: 1243 848 1 Tablet(s) PO QD 01/04/2018 01/03/2018 Inactive ferrous sulfate 325 mg (65 mg iron) tablet RxNorm: 312385 1 Tab let(s) PO BID 08/13/2017 08/12/2017 Inactive Cymbalta 60 mg Cap RxNorm: 712847 1 Capsule(s) PO QD 08/23/200908/22 Inactive baclofen 20 mg tablet RxNorm: 857348 1 Tablet(s) PO QHS and 1/2 tab po qam 08/13/2017 08/12/2017 Inactive Januvia 100 mg tablet RxNorm: 995934 1 Tablet(s) PO QD 04/06/2018 Inactive Multivitamin & Mineral Formula Tab RxNorm: 1 Tablet(s) PO QD 1 04/10/2013 02/07/2014 Inactive Tessalon Perle 100 mg capsule RxNorm: 1-2 Capsule(s) PO TID for cough 06/17/2012 06/16/2012 Inactive baclofen 20 mg tablet RxNorm: 589444 1/2 Tablet(s) PO Q HS and 1/2 tablet PRN during day 08/13/2017 08/12/2017 Inactive Medrol (Alexei) 4 mg Tabs in a Dose Pack RxNorm: 918192 Tablet(s) PO 1 05/02/2014 12/11/2010 Inactive as directed Flexeril 10 mg tablet RxNorm: 002236 1 Tablet(s) PO QHS for spasm 0 12/13/2013 12/12/2013 Inactive Tylenol Extra Strength 500 mg Tab RxNorm: 606914 2-3 Tablet(s) PO QHS 12/12/2010 12/11/2010 Inactive ferrous sulfate 325 mg (65 mg iron) tablet RxNorm: 233900 1 Tab let(s) PO BID 02/13/2020 02/12/2020 Inactive omeprazole 20 mg Cap, Delayed Release RxNorm: 615912 1 Capsule( s) PO QD 02/04/2010 02/03/2010 Inactive aspirin 81 mg tablet RxNorm: 595393 1 Tablet(s) PO QD 04/06/201803/17 Inactive omeprazole 20 mg capsule,delayed release RxNorm: 793144 1 Capsu le(s) PO QD 05/10/2018 05/09/2018 Inactive metformin 1,000 mg tablet RxNorm: 490645 1 Tablet(s) PO QD 02/02/20 18 01/31/2018 Inactive Synthroid 25 mcg Tab RxNorm: 965660 1 Tablet(s) PO QD 08/01/200907/14 Inactive Restasis 0.05 % Eye Dropperette RxNorm: 253840 1 Drop(s) OPH BID 06/16/2012 Inactive Flexeril 10 mg Tab RxNorm: 821740 1 Tablet(s) PO PRN 11/22/200911/21 Inactive Excedrin Extra Strength Oral RxNorm: Oral 11/04/2017 11/03/2017 Inactive Nasacort AQ 55 mcg Nasal Oriska Aerosol RxNorm: 3610488 1 Oriska N AMAURI BID 06/05/2010 06/04/2010 Inactive levothyroxine 25 mcg tablet RxNorm: 702856 1 Tablet(s) PO QD 201212/21/2012 Inactive tramadol 50 mg Tab RxNorm: 620635 1-2 Tablet(s) PO TID as neede d for pain 05/11/2013 05/10/2013 Inactive nystatin 100,000 unit/g Topical Powder RxNorm: 533799 Applicati on TOP BID 05/11/2013 05/10/2013 Inactive citalopram 20 mg tablet RxNorm: 803657 1 Tablet(s) PO QHS 06/24/2012 06/23/2012 Inactive Mobic 15 mg tablet RxNorm: 543009 1 Tablet(s) PO QD 02/08/20142013 Inactive ferrous sulfate 325 mg (65 mg iron) Tab RxNorm: 753718 1 Tablet (s) PO QD 04/06/2018 04/05/2018 [...] Date PNEUMOCOCCAL VACC 23 ALEXA IM CPT-4: 28900 02/13/2020 ADMIN PNEUMOCOCCAL VACCINE CPT-4: G0009 02/13/2020 URINALYSIS NONAUTO W/O SCOPE CPT-4: 63486 08/17/2019 FLU VACC PRSV FREE INC ANTIG 65 AND OLDER CPT-4: 50239 01/05/2019 FLU VACC PRSV FREE INC ANTIG 65 AND OLDER CPT-4: 25430 01/05/2019 PNEUMOCOCCAL VACC 13 ALEXA IM CPT-4: 26728 01/05/2019 ADMIN INFLUENZA VIRUS VAC CPT-4: G0008 01/05/2019 ADMIN PNEUMOCOCCAL VACCINE CPT-4: G0009 01/05/2019 INITIAL PREVENTIVE EXAM CPT-4: G0402 01/05/2019 DRAIN/INJECT JOINT/BURSA CPT-4: 84984 07/14/2016 TRIAMCINOLONE ACET INJ NOS CPT-4: J3301 07/14/2016 DEXAMETHASONE SODIUM PHOS CPT-4: J1100 07/14/2016 THER/PROPH/DIAG INJ SC/IM CPT-4: 69443 01/18/2013 METHYLPREDNISOLONE 40 MG INJ CPT-4: J1030 01/18/2013 TRIAMCINOLONE ACET INJ NOS CPT-4: J3301 01/18/2013 CEFTRIAXONE SODIUM INJECTION CPT-4: J0696 01/18/2013 THER/PROPH/DIAG INJ SC/IM CPT-4: 38841 01/18/2013 URINALYSIS NONAUTO W/O SCOPE CPT-4: 31068 06/05/2010 URINE CULTURE/ COLONY COUNT CPT-4: 82438 06/05/2010 Vital Signs Date Vital 09/25/2020 Blood Pressure 1: 126/64 Code: 8480-6 Heart Rate 1: 84 bpm Respiratory Rate: 20 bpm SpO2: 98% Temperature: 36.8 (C) / 98.2 (F) We ight: 204 lbs Code: 86320-4 06/19/2020 Blood Pressure 1: 126/74 Code: 8480-6 Heart Rate 1: 84 bpm Respiratory Rate: 20 bpm SpO2: 97% Temperature: 37.2 (C) / 99.0 (F) We ight: 205 lbs Code: 35813-9 05/14/2020 Blood Pressure 1: 136/70 Code: 8480-6 Heart Rate 1: 92 bpm Respiratory Rate: 20 bpm SpO2: 99% Temperature: 36.9 (C) / 98.4 (F) We ight: 206 lbs Code: 95451-0 02/13/2020 Blood Pressure 1: 134/82 Code: 8480-6 Heart Rate 1: 92 bpm Respiratory Rate: 20 bpm SpO2: 96% Temperature: 36.8 (C) / 98.3 (F) We ight: 207 lbs Code: 91041-1 11/08/2019 Blood Pressure 1: 136/78 Code: 8480-6 Heart Rate 1: 92 bpm Respiratory Rate: 20 bpm SpO2: 99% Temperature: 36.5 (C) / 97.7 (F) We ight: 208 lbs Code: 57943-1 08/17/2019 Blood Pressure 1: 146/70 Code: 8480-6 Heart Rate 1: 100 bpm Respiratory Rate: 20 bpm SpO2: 100% Temperature: 36.5 (C) / 97.7 (F) We ight: 204 lbs Code: 59824-0 07/20/2019 Blood Pressure 1: 136/82 Code: 8480-6 Heart Rate 1: 76 bpm Respiratory Rate: 20 bpm SpO2: 97% Temperature: 36.8 (C) / 98.2 (F) We ight: 203 lbs Code: 17816-8 04/14/2019 Blood Pressure 1: 140/78 Code: 8480-6 Heart Rate 1: 76 bpm Respiratory Rate: 20 bpm SpO2: 96% Temperature: 36.6 (C) / 97.8 (F) We ight: 202 lbs Code: 41447-2 01/05/2019 Blood Pressure 1: 130/68 Code: 8480-6 BMI: 35.6 Code: 71230-9 Heart Rate 1: 80 bpm Height: 5'3" Code: 8302-2 Respiratory Rate: 18 bpm SpO2: 98% Temperature: 36.6 (C) / 97.8 (F) Weight: 201 lbs Code: 71050-2 09/28/2018 Blood Pressure 1: 134/74 Code: 8480-6 Heart Rate 1: 84 bpm Respiratory Rate: 20 bpm SpO2: 97% Temperature: 36.8 (C) / 98.2 (F) We ight: 205 lbs Code: 60760-7 06/28/2018 Blood Pressure 1: 130/72 Code: 8480-6 Heart Rate 1: 76 bpm Respiratory Rate: 20 bpm SpO2: 95% Temperature: 36.7 (C) / 98.0 (F) We ight: 207 lbs Code: 93090-1 05/27/2018 Blood Pressure 1: 126/74 Code: 8480-6 Heart Rate 1: 76 bpm Respiratory Rate: 20 bpm Temperature: 36.9 (C) / 98.4 (F) Weight: 203 lbs Code : 22847-6 04/06/2018 Blood Pressure 1: 126/70 Code: 8480-6 BMI: 34.7 Code: 16083-9 Heart Rate 1: 80 bpm Height: 5'4" Code: 8302-2 Respiratory Rate: 20 bpm Temperatu re: 36.7 (C) / 98.0 (F) Weight: 202 lbs Code: 07892-4 02/01/2018 Blood Pressure 1: 114/60 Code: 8480-6 BMI: 33.8 Code: 57521-6 Heart Rate 1: 88 bpm Height: 5'4" Code: 8302-2 Respiratory Rate: 20 bpm SpO2: 96% Temperature: 36.7 (C) / 98.1 (F) Weight: 197 lbs Code: 96768-8 01/04/2018 Blood Pressure 1: 126/78 Code: 8480-6 BMI: 34.2 Code: 44738-0 Heart Rate 1: 76 bpm Height: 5'4" Code: 8302-2 Respiratory Rate: 20 bpm SpO2: 97% Temperature: 37.0 (C) / 98.6 (F) Weight: 199 lbs Code: 93127-5 11/04/2017 Blood Pressure 1: 134/78 Code: 8480-6 BMI: 34.8 Code: 25215-4 Heart Rate 1: 84 bpm Height: 5'4" Code: 8302-2 Respiratory Rate: 20 bpm SpO2: 98% Temperature: 37.0 (C) / 98.6 (F) Weight: 203 lbs Code: 98231-8 10/08/2017 Blood Pressure 1: 124/72 Code: 8480-6 BMI: 35.7 Code: 28892-7 Heart Rate 1: 84 bpm Height: 5'4" Code: 8302-2 Respiratory Rate: 20 bpm Temperatu re: 37.0 (C) / 98.6 (F) Weight: 208 lbs Code: 24108-4 09/03/2017 Blood Pressure 1: 142/78 Code: 8480-6 BMI: 35.7 Code: 49106-2 Heart Rate 1: 84 bpm Height: 5'4" Code: 8302-2 Respiratory Rate: 20 bpm Temperatu re: 36.6 (C) / 97.8 (F) Weight: 208 lbs Code: 15264-8 08/13/2017 Blood Pressure 1: 142/78 Code: 8480-6 BMI: 36.2 Code: 64018-7 Heart Rate 1: 76 bpm Height: 5'4" Code: 8302-2 Respiratory Rate: 20 bpm SpO2: 98% Temperature: 36.6 (C) / 97.9 (F) Weight: 211 lbs Code: 52130-9 04/22/2017 Blood Pressure 1: 126/62 Code: 8480-6 BMI: 35.0 Code: 21037-7 Heart Rate 1: 84 bpm Height: 5'4" Code: 8302-2 Respiratory Rate: 20 bpm SpO2: 96% Temperature: 36.6 (C) / 97.9 (F) Weight: 204 lbs Code: 75637-5 03/11/2017 Blood Pressure 1: 144/74 Code: 8480-6 BMI: 36.0 Code: 33193-4 Heart Rate 1: 80 bpm Height: 5'4" Code: 8302-2 Respiratory Rate: 20 bpm SpO2: 95% Temperature: 36.8 (C) / 98.3 (F) Weight: 210 lbs Code: 45024-1 12/10/2016 Blood Pressure 1: 148/80 Code: 8480-6 BMI: 36.6 Code: 18599-7 Heart Rate 1: 80 bpm Height: 5'4" Code: 8302-2 Respiratory Rate: 20 bpm SpO2: 96% Temperature: 36.6 (C) / 97.8 (F) Weight: 213 lbs Code: 67434-3 11/26/2016 Blood Pressure 1: 122/64 Code: 8480-6 BMI: 35.9 Code: 40788-5 Heart Rate 1: 72 bpm Height: 5'4" Code: 8302-2 Respiratory Rate: 20 bpm SpO2: 98% Temperature: 36.7 (C) / 98.1 (F) Weight: 209 lbs Code: 30083-9 07/14/2016 Blood Pressure 1: 146/70 Code: 8480-6 BMI: 37.4 Code: 32774-2 Heart Rate 1: 84 bpm Height: 5'4" Code: 8302-2 Respiratory Rate: 20 bpm SpO2: 98% Temperature: 36.8 (C) / 98.3 (F) Weight: 218 lbs Code: 06961-3 03/11/2016 Blood Pressure 1: 136/68 Code: 8480-6 BMI: 38.6 Code: 59442-0 Heart Rate 1: 84 bpm Height: 5'4" Code: 8302-2 Respiratory Rate: 20 bpm SpO2: 96% Temperature: 36.4 (C) / 97.6 (F) Weight: 225 lbs Code: 92246-5 11/06/2015 Blood Pressure 1: 124/62 Code: 8480-6 BMI: 37.8 Code: 19588-1 Heart Rate 1: 80 bpm Height: 5'4" Code: 8302-2 Respiratory Rate: 20 bpm Temperatu re: 36.7 (C) / 98.1 (F) Weight: 220 lbs Code: 79739-7 03/15/2015 Blood Pressure 1: 140/78 Code: 8480-6 BMI: 37.8 Code: 42464-6 Heart Rate 1: 68 bpm Height: 5'4" Code: 8302-2 Respiratory Rate: 20 bpm Temperatu re: 37.0 (C) / 98.6 (F) Weight: 220 lbs Code: 30417-5 03/01/2015 Blood Pressure 1: 142/78 Code: 8480-6 BMI: 37.8 Code: 55110-9 Heart Rate 1: 86 bpm Height: 5'4" Code: 8302-2 Respiratory Rate: 20 bpm SpO2: 95% Temperature: 36.7 (C) / 98.1 (F) Weight: 220 lbs Code: 50609-3 10/03/2014 Blood Pressure 1: 128/80 Code: 8480-6 BMI: 38.4 Code: 05275-3 Heart Rate 1: 80 bpm Height: 5'4" Code: 8302-2 Respiratory Rate: 20 bpm Temperatu re: 36.8 (C) / 98.2 (F) Weight: 224 lbs Code: 85167-6 02/08/2014 Blood Pressure 1: 158/86 Code: 8480-6 BMI: 38.8 Code: 26655-1 Heart Rate 1: 84 bpm Height: 5'4" Code: 8302-2 Respiratory Rate: 20 bpm Temperatu re: 36.7 (C) / 98.0 (F) Weight: 226 lbs Code: 43266-6 05/11/2013 Blood Pressure 1: 142/86 Code: 8480-6 BMI: 39.1 Code: 25607-7 Heart Rate 1: 80 bpm Height: 5'4" Code: 8302-2 Respiratory Rate: 20 bpm Temperatu re: 36.6 (C) / 97.8 (F) Weight: 228 lbs Code: 92218-5 01/18/2013 Blood Pressure 1: 136/82 Code: 8480-6 Heart Rate 1: 84 bpm Height: 5'4" Code: 8302-2 Respiratory Rate: 20 bpm Temperature: 36.7 (C) / 98.0 (F) Weight: Code: 38967-6 12/22/2012 Blood Pressure 1: 128/78 Code: 8480-6 Heart Rate 1: 84 bpm Respiratory Rate: 20 bpm SpO2: 98% Temperature: 36.6 (C) / 97.9 (F) We ight: Code: 57749-4 09/02/2012 Blood Pressure 1: 146/82 Code: 8480-6 Heart Rate 1: 92 bpm Respiratory Rate: 20 bpm Temperature: 37.0 (C) / 98.6 (F) Weight: 216 lbs Code : 98559-9 06/17/2012 Blood Pressure 1: 114/78 Code: 8480-6 BMI: 36.6 Code: 87224-2 Heart Rate 1: 100 bpm Height: 5'4" Code: 8302-2 Respiratory Rate: 20 bpm Temperatu re: 37.1 (C) / 98.8 (F) Weight: 213 lbs Code: 24501-7 03/15/2012 Blood Pressure 1: 122/70 Code: 8480-6 BMI: 36.9 Code: 49026-8 Heart Rate 1: 64 bpm Height: 5'4" Code: 8302-2 Temperature: 36.9 (C) / 98.4 (F) Weight: 215 lbs Code: 07817-4 12/17/2011 Blood Pressure 1: 138/80 Code: 8480-6 Heart Rate 1: 92 bpm Height: 5'4" Code: 8302-2 Respiratory Rate: 20 bpm Temperature: 36.9 (C) / 98.4 (F) Weight: Code: 24683-8 10/27/2011 Blood Pressure 1: 124/76 Code: 8480-6 BMI: 38.6 Code: 65889-4 Heart Rate 1: 80 bpm Height: 5'4" Code: 8302-2 Temperature: 36.3 (C) / 97.4 (F) Weight: 225 lbs Code: 89854-3 08/14/2011 Blood Pressure 1: 126/70 Code: 8480-6 Heart Rate 1: 88 bpm Respiratory Rate: 20 bpm Temperature: 36.7 (C) / 98.0 (F) Weight: Code: 14572- 7 07/09/2011 Blood Pressure 1: 128/80 Code: 8480-6 BMI: 37.9 Code: 75476-9 Heart Rate 1: 88 bpm Height: 5'4" Code: 8302-2 Respiratory Rate: 20 bpm Temperatu re: 36.8 (C) / 98.3 (F) Weight: 221 lbs Code: 46338-2 02/10/2011 Blood Pressure 1: 142/84 Code: 8480-6 Heart Rate 1: 68 bpm Height: Code: 8302-2 Temperature: 36.5 (C) / 97.7 (F) Weight: Code: 94842- 7 12/12/2010 Blood Pressure 1: 142/80 Code: 8480-6 Heart Rate 1: 88 bpm Temperature: 36.5 (C) / 97.7 (F) Weight: 220 lbs Code: 74770-7 09/18/2010 Blood Pressure 1: 142/78 Code: 8480-6 Heart Rate 1: 92 bpm Temperature: 36.8 (C) / 98.2 (F) Weight: 214 lbs Code: 11714-6 08/19/2010 Blood Pressure 1: 132/80 Code: 8480-6 Heart Rate 1: 96 bpm Temperature: 36.5 (C) / 97.7 (F) Weight: 211 lbs Code: 06912-7 06/05/2010 Blood Pressure 1: 126/82 Code: 8480-6 Heart Rate 1: 84 bpm Temperature: 36.9 (C) / 98.4 (F) Weight: 223 lbs Code: 66221-1 03/12/2010 Blood Pressure 1: 132/86 Code: 8480-6 Heart Rate 1: 82 bpm Temperature: 36.8 (C) / 98.2 (F) Weight: Code: 91914-4 09/19/2009 Blood Pressure 1: 150/94 Code: 8480-6 Heart Rate 1: 80 bpm Temperature: 36.6 (C) / 97.8 (F) Weight: 223 lbs Code: 73222-0 06/11/2009 BMI: 38.1 Code: 14049-6 Height: 5'4" Code: 8302- 2 Weight: 222 lbs Code: 52029-6 Functional Status No Functional Status data Reason [...] 04/22/2017 follow up 03/11/2017 follow up 12/10/2016 [facility] fwup high blood pressure 11/26/2016 pain, limb [...] CYST Encounters Encounter Performer Location Codes Date ([id number]) OFFICE/OUTPATIENT VISIT EST Diagnosis: Other malaise and fatigue[ICD10: R53.81] Diagnosis: Type 2 diabetes mellitus with hyperglycemia[ICD10: E11.65] Diagnosis: Essential hypertension[ICD10: I10] Diagnosis: Chronic major depressive disorder, recurrent episode[ICD10: F33.9] Khadijah WILLIAMSON DO [facility] CPT-4: 99622 09/25/2020 ([id number]) OFFICE/OUTPATIENT VISIT EST Diagnosis: Major depressive disorder, recurrent, moderate[ICD10: F33.1] Diagnosis: Thyroid nodule[ICD10: E04.1] Khadijah WILLIAMSON [facility] CPT-4: 02564 06/19/2020 ([id number]) OFFICE/OUTPATIENT VISIT EST Diagnosis: Major depressive disorder, recurrent, moderate[ICD10: F33.1] Diagnosis: Essential hypertension[ICD10: I10] Diagnosis: Type 2 diabetes mellitus without complications[ICD10: E11.9] Khadijah WILLIAMSON [facility] CPT-4: 65217 05/14/2020 ([id number]) OFFICE/OUTPATIENT VISIT EST Diagnosis: Insomnia[ICD10: G47.00] Diagnosis: Major depressive disorder, recurrent, moderate[ICD10: F33.1] Diagnosis: Essential (primary) hypertension[ICD10: I10] Diagnosis: Other spondylosis with radiculopathy, lumbosacral region[ICD10: M47.27] Diagnosis: PNEUMOCOCCAL VACCINE[ICD10: Z23] Khadijah WILLIAMSON [facility] CPT-4: 30747 02/13/2020 ([id number]) OFFICE/OUTPATIENT VISIT EST Diagnosis: Essential (primary) hypertension[ICD10: I10] Diagnosis: Type 2 diabetes mellitus with hyperglycemia[ICD10: E11.65] Diagnosis: Cough[ICD10: R05] Khadijah WILLIAMSON [facility] CPT-4: 27776 11/08/2019 ([id number]) OFFICE/OUTPATIENT VISIT EST Diagnosis: Major depressive disorder, single episode, 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: F32.2] Diagnosis: Cystitis[ICD10: N30.90] Diagnosis: Sacroiliitis[ICD10: M46.1] Diagnosis: COUGH[ICD10: R05] Khadijah WILLIAMSON [facility] CPT-4: 59368 08/17/2019 ([id number]) OFFICE/OUTPATIENT VISIT EST Diagnosis: Essential (primary) hypertension[ICD10: I10] Diagnosis: Type 2 diabetes mellitus without complications[ICD10: E11.9] Diagnosis: Chronic major depressive disorder, recurrent episode[ICD10: F33.9] Diagnosis: COUGH[ICD10: R05] Khadijahgenet MAYESQUELINE Earnest CHANDLER [employer] [facility] CPT-4: 93429 07/20/2019 ([id number]) OFFICE/OUTPATIENT VISIT EST Diagnosis: Type 2 diabetes mellitus without complications[ICD10: E11.9] Diagnosis: Essential (primary) hypertension[ICD10: I10] Diagnosis: Hypothyroidism, unspecified[ICD10: E03.9] Diagnosis: Falls[ICD10: W19.XXXA] Diagnosis: Skin tag[ICD10: L91.8] Diagnosis: Other spondylosis with radiculopathy, lumbosacral region[ICD10: M47.27] Khadijah MAYESQUELINE CaroleJackie Sanders [employer] [facility] CPT-4: 19579 04/14/2019 ([id number]) NURSE/OUTPATIENT VISIT EST Diagnosis: FLU VACCINE[ICD10: Z23] Diagnosis: PNEUMOCOCCAL VACCINE[ICD10: Z23] Diagnosis: Encounter for general adult medical examination without abnormal findings[ICD10: Z00.00] Diagnosis: Type 2 diabetes mellitus without complications[ICD10: E11.9] Diagnosis: Essential (primary) hypertension[ICD10: I10] Diagnosis: Mixed hyperlipidemia[ICD10: E78.2] Diagnosis: Cervicalgia[ICD10: M54.2] Khadijah MAYESQUELINE Earnest LEE [employer] [facility] CPT-4: 53638 01/05/2019 ([id number]) OFFICE/OUTPATIENT VISIT EST Diagnosis: Type 2 diabetes mellitus without complications[ICD10: E11.9] Diagnosis: Essential (primary) hypertension[ICD10: I10] Diagnosis: Pain in left shoulder[ICD10: M25.512] Diagnosis: Pain in left elbow[ICD10: M25.522] Diagnosis: Pleurodynia[ICD10: R07.81] Diagnosis: Epigastric pain[ICD10: R10.13] Khadijahmadi Williamson KHADIJAH Carole Mejia [employer] [facility] CPT-4: 72087 09/28/2018 ([id number]) OFFICE/OUTPATIENT VISIT EST Diagnosis: Essential (primary) hypertension[ICD10: I10] Diagnosis: Type 2 diabetes mellitus without complications[ICD10: E11.9] Diagnosis: Other spondylosis with radiculopathy, lumbosacral region[ICD10: M47.27] Khadijah WILLIAMSON DO [facility] CPT-4: 03406 06/28/2018 ([id number]) OFFICE/OUTPATIENT VISIT EST Diagnosis: Other spondylosis with radiculopathy, lumbosacral region[ICD10: M47.27] Khadijah WILLIAMSON DO [facility] CPT-4: 90326 05/27/2018 ([id number]) OFFICE/OUTPATIENT VISIT EST Diagnosis: Type 2 diabetes mellitus without complications[ICD10: E11.9] Diagnosis: Essential (primary) hypertension[ICD10: I10] Diagnosis: Mixed hyperlipidemia[ICD10: E78.2] Diagnosis: Other spondylosis with radiculopathy, lumbosacral region[ICD10: M47.27] Khadijah WILLIAMSON DO [facility] CPT-4: 24108 04/06/2018 ([id number]) OFFICE/OUTPATIENT VISIT EST Diagnosis: Diarrhea, unspecified[ICD10: R19.7] Diagnosis: Other spondylosis with radiculopathy, lumbosacral region[ICD10: M47.27] Khadijah WILLIAMSON DO [facility] CPT-4: 79376 02/01/2018 ([id number]) OFFICE/OUTPATIENT VISIT EST Diagnosis: Diarrhea, unspecified[ICD10: R19.7] Diagnosis: Other spondylosis with radiculopathy, lumbosacral region[ICD10: M47.27] Khadijah WILLIAMSON DO [facility] CPT-4: 27981 01/04/2018 ([id number]) OFFICE/OUTPATIENT VISIT EST Diagnosis: Other spondylosis with radiculopathy, lumbosacral region[ICD10: M47.27] Diagnosis: Epigastric pain[ICD10: R10.13] Khadijah WILLIAMSON DO [facility] CPT-4: 66455 11/04/2017 ([id number]) OFFICE/OUTPATIENT VISIT EST Diagnosis: Epigastric pain[ICD10: R10.13] Khadijah WILLIAMSON DO [facility] CPT-4: 72851 10/08/2017 ([id number]) OFFICE/OUTPATIENT VISIT EST Diagnosis: Major depressive disorder, recurrent, moderate[ICD10: F33.1] Khadijah WILLIAMSON [employer] [facility] CPT-4: 35766 09/03/2017 ([id number]) OFFICE/OUTPATIENT VISIT EST Diagnosis: URI, ACUTE[ICD10: J06.9] Diagnosis: Type 2 diabetes mellitus without complications[ICD10: E11.9] Diagnosis: Major depressive disorder, single episode, 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: F32.2] Diagnosis: Other spondylosis with radiculopathy, lumbosacral region[ICD10: M47.27] Khadijah WILLIAMSON [employer] [facility] CPT-4: 56932 08/13/2017 OFFICE/OUTPATIENT VISIT EST Diagnosis: Type 2 diabetes mellitus without complications[ICD10: E11.9] Diagnosis: Essential (primary) hypertension[ICD10: I10] Diagnosis: Other spondylosis with radiculopathy, lumbosacral region[ICD10: M47.27] Diagnosis: Cervicalgia[ICD10: M54.2] Khadijah LEE [employer] [facility] CPT-4: 50842 04/22/2017 ([id number]) OFFICE/OUTPATIENT VISIT EST Diagnosis: Type 2 diabetes mellitus without complications[ICD10: E11.9] Diagnosis: Essential (primary) hypertension[ICD10: I10] Diagnosis: Other spondylosis with radiculopathy, lumbosacral region[ICD10: M47.27] Diagnosis: Localized enlarged lymph nodes[ICD10: R59.0] Khadijah WILLIAMSON [employer] [facility] CPT-4: 96486 03/11/2017 ([id number]) OFFICE/OUTPATIENT VISIT EST Diagnosis: Infectious gastroenteritis and colitis, unspecified[ICD10: A09] Diagnosis: Other spondylosis with radiculopathy, lumbosacral region[ICD10: M47.27] Khadijah WILLIAMSON [employer] [facility] CPT-4: 30654 12/10/2016 ([id number]) PREV VISIT EST AGE 40-64 Diagnosis: Encounter for general adult medical examination without abnormal findings[ICD10: Z00.00] Diagnosis: Type 2 diabetes mellitus without complications[ICD10: E11.9] Diagnosis: Hypothyroidism, unspecified[ICD10: E03.9] Diagnosis: Mixed hyperlipidemia[ICD10: E78.2] Diagnosis: Essential (primary) hypertension[ICD10: I10] Diagnosis: Other spondylosis with radiculopathy, lumbosacral region[ICD10: M47.27] Khadijah WILLIAMSON [employer] CPT-4: 21200 11/26/2016 ([id number]) OFFICE/OUTPATIENT VISIT EST Diagnosis: Type 2 diabetes mellitus without complications[ICD10: E11.9] Diagnosis: Mixed hyperlipidemia[ICD10: E78.2] Diagnosis: Essential (primary) hypertension[ICD10: I10] Diagnosis: Hypothyroidism, unspecified[ICD10: E03.9] Khadijah WILLIAMSON [employer] CPT-4: 45825 03/11/2016 OFFICE/OUTPATIENT VISIT EST Diagnosis: Type 2 diabetes mellitus without complications[ICD10: E11.9] Diagnosis: Essential (primary) hypertension[ICD10: I10] Diagnosis: Mixed hyperlipidemia[ICD10: E78.2] Diagnosis: 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] Khadijah WILLIAMSON [employer] CPT-4: 08959 11/06/2015 ([id number]) PREV VISIT EST AGE 40-64 Diagnosis: Encounter for general adult medical examination without abnormal findings[ICD10: Z00.00] Diagnosis: Acute bronchitis, unspecified[ICD10: J20.9] Diagnosis: Type 2 diabetes mellitus with hyperglycemia[ICD10: E11.65] Diagnosis: Hypothyroidism, unspecified[ICD10: E03.9] Diagnosis: Essential (primary) hypertension[ICD10: I10] Khadijah WILLIAMSON [employer] CPT-4: 75311 03/15/2015 OFFICE/OUTPATIENT VISIT EST Diagnosis: Acute bronchitis, unspecified[ICD10: J20.9] Lety England KHADIJAH WILLIAMSON [employer] CPT-4: 41761 03/01/2015 OFFICE/OUTPATIENT VISIT EST Diagnosis: DM W/O COMPLICATION TYPE II[ICD9: 250.00] Diagnosis: HYPOTHYROIDISM[ICD9: 244.9] Diagnosis: HYPERTENSION[ICD9: 401.9] Khadijah LEE [facility] CPT-4: 41897 10/03/2014 ([id number]) OFFICE/OUTPATIENT VISIT EST Diagnosis: DM W/O COMPLICATION TYPE II[ICD9: 250.00] Diagnosis: HYPERTENSION[ICD9: 401.9] Diagnosis: DEPRESSIVE DISORDER NEC[ICD9: 311] Khadijah CRUZ [employer] [facility] CPT-4: 07038 02/08/2014 ([id number]) OFFICE/OUTPATIENT VISIT EST Diagnosis: OSTEOARTHRISIS MULTI SITES[ICD9: 715.98] Diagnosis: LUMB/LUMBOSAC DISC DEGEN[ICD9: 722.52] Diagnosis: DM W/O COMPLICATION TYPE II[ICD9: 250.00] Khadijah WILLIAMSON [facility] CPT-4: 77045 05/11/2013 ([id number]) OFFICE/OUTPATIENT VISIT EST Diagnosis: SINUSITIS, ACUTE[ICD9: 461.9] Diagnosis: BRONCHITIS, ACUTE[ICD9: 466.0] Khadijah WILLIAMSON [facility] CPT-4: 56630 01/18/2013 ([id number]) OFFICE/OUTPATIENT VISIT EST Diagnosis: SINUSITIS, ACUTE[ICD9: 461.9] Diagnosis: BRONCHITIS, ACUTE[ICD9: 466.0] [facility] CPT[facility]: 43204 12/22/2012 ([id number]) OFFICE/OUTPATIENT VISIT EST Diagnosis: MALAISE AND FATIGUE[ICD9: 780.79] Diagnosis: Apnea[ICD9: 786.03] Diagnosis: DEPRESSIVE DISORDER NEC[ICD9: 311] Khadijah CRUZ [employer] WILLIAMSON [employer] [facility] CPT-4: 25489 09/02/2012 ([id number]) OFFICE/OUTPATIENT VISIT EST Diagnosis: DM W/O COMPLICATION TYPE II, UNCONTROLLED[ICD9: 250.02] Diagnosis: MALAISE AND FATIGUE[ICD9: 780.79] Diagnosis: HYPOTHYROIDISM[ICD9: 244.9] Diagnosis: HYPERTENSION[ICD9: 401.9] Diagnosis: Tinea cruris[ICD9: 110.3] Khadijah LEE [facility] CPT-4: 41849 06/17/2012 OFFICE/OUTPATIENT VISIT EST Diagnosis: COUGH[ICD9: 786.2] Khadijah WILLIAMSON [facility] CPT-4: 34078 03/15/2012 OFFICE/OUTPATIENT VISIT EST Diagnosis: LUMB/LUMBOSAC DISC DEGEN[ICD9: 722.52] Diagnosis: Radiculopathy[ICD9: 729.2] Khadijah WILSON [facility] CPT-4: 52964 12/17/2011 ([id number]) OFFICE/OUTPATIENT VISIT EST Diagnosis: EDEMA[ICD9: 782.3] Diagnosis: ALLERGIC RHINITIS[ICD9: 477.9] Khadijah WILLIAMSON [facility] CPT-4: 66689 10/27/2011 ([id number]) OFFICE/OUTPATIENT VISIT EST Diagnosis: DM W/O COMPLICATION TYPE II, UNCONTROLLED[ICD9: 250.02] Diagnosis: ANEMIA IRON DEFICIENCY[ICD9: 280.9] Diagnosis: LUMB/LUMBOSAC DISC DEGEN[ICD9: 722.52] Diagnosis: NEURALGIA/NEURITIS[ICD9: 729.2] Khadijah WILLIAMSON [facility] CPT-4: 22647 08/14/2011 ([id number]) OFFICE/OUTPATIENT VISIT EST Diagnosis: LUMB/LUMBOSAC DISC DEGEN[ICD9: 722.52] Diagnosis: Radiculopathy[ICD9: 729.2] Diagnosis: DM W/O COMPLICATION TYPE II[ICD9: 250.00] Khadijah WILLIAMSON [facility] CPT-4: 69796 07/09/2011 OFFICE/OUTPATIENT VISIT EST Diagnosis: SINUSITIS, ACUTE[ICD9: 461.9] Diagnosis: COUGH[ICD9: 786.2] Khadijah WILLIAMSON [facility] CPT-4: 19950 02/10/2011 OFFICE/OUTPATIENT VISIT EST Diagnosis: DM W/O COMPLICATION TYPE II[ICD9: 250.00] Diagnosis: MALAISE AND FATIGUE[ICD9: 780.79] Diagnosis: DEPRESSIVE DISORDER NEC[ICD9: 311] Diagnosis: BRONCHITIS, ACUTE[ICD9: 466.0] Khadijah WILLIAMSON DO [facility] CPT-4: 13492 12/12/2010 OFFICE/OUTPATIENT VISIT EST Khadijah MU[facility]Z [employer] CPT- 4: 91593 09/18/2010 ([id number]) OFFICE/OUTPATIENT VISIT EST Khadijah NAIK [facility] CPT-4: 44686 08/19/2010 ([id number]) OFFICE/OUTPATIENT VISIT EST Khadijah NAIK [employer] CPT-4: 37112 06/05/2010 ([id number]) OFFICE/OUTPATIENT VISIT, EST Khadijah MUÑOZNDER DO [employer] CPT-4: 73432 03/12/2010 ([id number]) OFFICE/OUTPATIENT VISIT, EST Khadijah DE LA CRUZ SJackie MUÑOZNDER DO [employer] CPT-4: 48463 09/19/2009 ([id number]) OFFICE/OUTPATIENT VISIT, EST Khadijah DE LA CRUZ SJackie MUÑOZNDER DO [employer] CPT-4: 49277 06/11/2009 Plan of Care Planned Activity Notes [...] : E11.65 09/25/2020 Appointment: [facility]hadij[facility]el[facility] [phone] [facility] [facility] 09/25/2020 Visit Diagnosis Plan: Thyroid nodule Discussion: Christiane Evans in May--had biopsy done ICD-9 : 241.0 ICD-10 : E04.1 06/19/2020 Visit Diagnosis Plan: Major depressive disorder, recur rent, moderate Discussion: Continue citalopram and Wellbutrin ICD-9 : 296.32 ICD-10 : F33.1 06/19/2020 Appointment: Khadijah Williamson [facility]Ptel[facility] [phone] [facility] [place] FO[facility] 06/19/2020 Visit Diagnosis Plan: [...] : I10 05/14/2020 Appointment: Khadijah Williamson [facility]Ptel[facility] [phone] [facility] [place] [facility] 05/14/2020 Patient Education: citalopram- [employer] Coupon [id number] https://www.[employer]./samplemd/resources/getResource/61/[email or web address] Completed 05/14/2020 Visit Diagnosis Plan: Essential (primary) [...] : F33.1 02/13/2020 Appointment: Khadijah Williamson WPtel: [address] [place], [place] [phone] [place] FOLLOW UP 02/13/2020 Patient Education: amitriptyline- [employer] Coupon [id number] https://www.Mobile Location, IP/[employer]/resources/getResource/61/[email or web address]-03ly-im Completed 02/13/2020 Appointment: Khadijah Williamson WPtel: [address] [place], [place] [phone] [place] RESCHEDULED 02/02/2020 Visit Diagnosis Plan: Essential [...] : R05 11/08/2019 Appointment: Khadijah Williamson WPtel: [address] [place], [place] [phone] [place] FOLLOW UP 11/08/2019 Care Plan: COMPREHEN METABOLIC PANEL [place] : 42047-2 Pending 10/31/2019 Care Plan: LIPID PANEL LOINC : 10894-1 Pending 10/31/2019 Care Plan: A1C HPLC LOINC : 41487-5 Pending 10/31/2019 Care Plan: COMPLETE CBC W/AUTO DIFF WBC LOINC : 98860-5 Pending 10/31/2019 Visit Diagnosis Plan: Sacroiliitis Discussion: [...] : N30.90 08/17/2019 Appointment: Khadijah Williamson WPtel: [address] [place], [place] [address] [place] FOLLOW UP 08/17/2019 Patient Education: Wellbutrin XL- [employer] Coupon 11 [id number] https://www.Mobile Location, IP/[employer]/resources/getResource/61/[email or web address]-u5 Completed 08/17/2019 Care Plan: CHEST X-RAY 2VW FRONTAL&LATL LOINC : 24345-2 Pending 08/17/2019 Visit Diagnosis Plan: Type 2 [...] : R05 07/20/2019 Appointment: Khadijah Williamson WPtel: [facility] [place] [facility] 07/20/2019 Patient Education: Wellbutrin XL- [employer] Coupon 11 [id number] https://www.Mobile Location, IP/samplemd/resources/getResource/61/[email or web address]-q8 Completed 07/20/2019 Patient Education: cefdinir- [employer] Coupon [id number] https://www.Mobile Location, IP/[employer]/resources/getResource/61/2u962j19-an67-6t16-14 Completed 07/20/2019 Visit Diagnosis Plan: Essential (primary) [...] : M47.27 04/14/2019 Appointment: Khadijah Williamson WPtel: [address] [place] [address] FOLLOW UP 04/14/2019 Visit Diagnosis Plan: Type 2 diabetes mellitus without complications Discussion: Lab discussed Accuchecks daily Continue current meds Check CMP and HbA1C in 3mos then fwup ICD-9 : 250.00 ICD-10 : E11.9 01/05/2019 Visit Diagnosis Plan: Cervicalgia Discussion: Discusse d x-ray results ICD-9 : 723.1 ICD-10 : M54.2 01/05/2019 Visit Diagnosis Plan: Encounter for gene ral adult medical examination without abnormal findings Discussion: Mediterranean diet Combinati on of cardio and weight bearing exercise Flu and Prevnar 13 given Bone Density ordered Recommend Shingrix ICD-9 : V70.9 ICD-10 : Z00.00 01/05/2019 Appointment: Khadijah Williamson WPtel: [phone] 3 mo WELCOME TO MEDICARE 01/05/2019 Care Plan: X-RAY EXAM OF SHOULDER Left Shoulder x-rays LOINC : 05235-2 Pending 09/30/2018 Visit Diagnosis Plan: Type 2 [...] R07.81 09/28/2018 Appointment: Khadijah Williamson [facility]Ptel: [phone] [facility] [facility] 09/28/2018 Visit Diagnosis Plan: Type [...] : M47.27 06/28/2018 Appointment: Khadijah Williamson WPtel: [address] [place] [address] [place] FOLLOW UP 06/28/2018 Visit Diagnosis Plan: Other spondylosis with radiculop athy, lumbosacral region Discussion: Trial of Celebrex 200mg po BID Recheck 4 weeks Discussed repeat SI joint injection Follow Up: 4 weeks ICD-9 : 722.52 ICD-10 : M47.27 05/27/2018 Appointment: Khadijah Williamson WPtel: [address] [place] [address] [place] FOLLOW UP 05/27/2018 Visit Diagnosis Plan: [...] : E11.9 04/06/2018 Appointment: Khadijah Williamson WPtel: [address] [place], [place] [phone] [place] FOLLOW UP 04/06/2018 Visit Diagnosis Plan: [...] : M47.27 02/01/2018 Appointment: Khadijah Williamson WPtel: [address] [place], [place] [phone] [place] FOLLOW UP 02/01/2018 Visit Diagnosis Plan: [...] : M47.27 01/04/2018 Appointment: Khadijah Williamson WPtel: [address] [place] [address] FOLLOW UP 01/04/2018 Patient Education: Patient Medication [...] : M47.27 11/04/2017 Appointment: Khadijah Williamson WPtel: [address] [place], [place] [phone] [place] FOLLOW UP 11/04/2017 Patient Education: Patient Medication Summary Completed 11/04/2017 Care Plan: Referral Order SNOMED-CT : 30 [id number] Pending 11/04/2017 Care Plan: MRI LUMBAR SPINE W/DYE LOINC : 82775-8 Pending 11/04/2017 Visit Diagnosis Plan: Epigastric pain Discussion: Stop meloxicam No NSAIDs [place] diet DC omeprazole Dexilant 60mg po BID Follow Up: 2 weeks ICD-9 : 789.06 ICD-10 : R10.13 10/08/2017 Appointment: Khadijah Williamson WPtel: [address] [place] [address] [place] ACUTE ILLNESS 10/08/2017 Patient Education: Patient Medication Summary Completed 10/08/2017 Visit Diagnosis Plan: Major depressive disorder, recur rent, moderate Discussion: Increase cymbalta to 60mg daily Follow Up: 2 months ICD-9 : 296.32 ICD-10 : F33.1 09/03/2017 Appointment: Khadijah Williamson WPtel: [address] [place], [place] [phone] [place] FOLLOW UP 09/03/2017 Patient Education: Patient Medication Summary Completed 09/03/2017 Appointment: Khadijah Williamson WPtel: [address] [place] [address] [place] RESCHEDULED 08/31/2017 Visit Diagnosis Plan: URI, ACUTE [...] : E11.9 08/13/2017 Appointment: Khadijah Williamson WPtel: [address] [place], [place] [phone] [place] FOLLOW UP 08/13/2017 Patient Education: Patient Medication Summary Completed 08/13/2017 Patient Education: Patient Medication Summary Completed 06/01/2017 Care Plan: MRI NECK SPINE W/O DYE [facility] : 64491-3 Pending 06/01/2017 Visit Diagnosis Plan: Essential (primary) [...] E11.9 04/22/2017 Appointment: Khadijah Williamson [facility]Ptel: [phone] [facility] [place] [facility] 04/22/2017 Patient [...] E11.9 03/11/2017 Appointment: Khadijah Williamson WPtel: [phone] [facility] [facility] 03/11/2017 Patient Education: Patient Medication Summary Completed 03/11/2017 Care Plan: US EXAM OF HEAD AND NECK LOIN C : 41882-6 Pending 03/11/2017 Visit Diagnosis Plan: Infectious gastroenteritis and c olitis, unspecified Discussion: Resolved ICD-9 : 558.9 ICD-10 : A09 12/10/2016 Visit Diagnosis Plan: Other spondylosis with radiculop athy, lumbosacral region Discussion: Continue mobic and lyrica Call in 1month on how doing ICD-9 : 722.52 ICD-10 : M47.27 12/10/2016 Appointment: Khadijah Williamson WPtel: [address] [place], [place] [phone] Hospital Follow Up 12/10/2016 Patient Education: Patient Medication Summary Completed 12/10/2016 Visit Diagnosis Plan: Other spondylosis with radiculop athy, lumbosacral region Discussion: Trial of lyrica 75mg q HS Call in 2 weeks on how doing Discussed repeat PT vs epidural but patient states would need to be after football season ICD-9 : 722.52 ICD-10 : M47.27 11/26/2016 Visit Diagnosis Plan: Encounter for [facility] adult medical examination without abnormal findings Discussion: Update fasting lab ICD-9 : V70.9 ICD-10 : Z00.00 11/26/2016 Visit Diagnosis Plan: Type 2 diabetes mellitus without complications Discussion: Accuchecks daily Check HbA1C Follow Up: 3 months ICD-9 : 250.00 ICD-10 : E11.9 11/26/2016 Visit Diagnosis Plan: Essential (primary) hypertension Discussion: Stable ICD-9 : 401.9 ICD-10 : I10 11/26/2016 Appointment: Khadijah Williamson WPtel: [address] [place], [place] [phone] Annual Well Visit 11/26/2016 Patient Education: Patient Medication Summary Completed 11/26/2016 Visit Diagnosis Plan: Trochanteric bursitis, left hip Discussion: Injection as above Start IT band stretches Call in 1 week on how doing If persists then will likely do PT ICD-9 : 726.5 ICD-10 : M70.62 07/14/2016 Appointment: Khadijah Williamson WPtel: [facility] 07/10 confirmed `sl ESTABLISHED PATIENT 7 Patient Education: Patient Medication Summary Completed 07/14/2016 Visit Plan: Update fasting lab Lots of s tiki with family illnesses Accuchecks daily Retiring at the end of this week 03/11/2016 Appointment: Khadijah Williamson WPtel: [phone] [facility] 03/11 confirmed~sl FOLLOW UP 03/11/2016 Patient Education: [...] for veins 11/06/2015 Appointment: Khadijah Williamson [facility]Ptel: [address] [facility] 11/05 confirmed ~sl FOLLOW UP 11/06/2015 Patient Education: Patient Medication Summary Completed 11/06/2015 Patient Education: [facility] - Saving AutoInj - 18-64 - Dynamic Jass l ID Completed 11/06/2015 Patient Education: Janumet XR - 18-64 - TAHMINA - No CA [place] MA Completed 11/06/2015 Patient Education: Patient Medication Summary Completed 10/15/2015 Care Plan: CBC Pending 10/15/2015 Care Plan: LIPID PANEL LOINC : 42443-2 Pending 10/15/2015 Care Plan: A1C HPLC LOINC : 92852-4 Pending 10/15/2015 Care Plan: ASSAY OF FREE THYROXINE Pendin g 10/15/2015 Care Plan: ASSAY THYROID STIM HORMONE Pen ding 10/15/2015 Care Plan: COMPREH[place] METABOLIC [place] : 11461-9 Pending 10/15/2015 Visit Plan: Update fasting lab Check Josep mogram Daily stretches for right leg sciatica but if persists will likely need updated MRI due to history of fusion Accuchecks daily Due for colonoscopy in 2019 unless has bowel changes 03/15/2015 Appointment: Khadijah Williamson [facility]Ptel[facility] [phone] [facility] 03/14/15 appt confirmed cn Annual Well Visit Patient Education: Patient Medication Summary Completed 03/15/2015 Care Plan: MAMMOGRAM SCREENING LOINC : 2 6347-5 Ordered 03/15/2015 Visit Plan: Continue Mucinex DM Cefdinir x 10 days Medrol dose pack Albuterol 0.83% soln. INH - SVN three times daily 03/01/2015 Appointment: Lety England WPtel: [phone] [facility] ACUTE ILLNESS 03/01/2015 Patient Education: Patient Medication [...] metformin 10/03/2014 Appointment: Khadijah Williamson WPtel: [phone] [facility] 10/02 no answer cn...10/03 no answer home tried cell vm not set up cn FOLLOW UP 10/03/2014 Patient Education: Patient Medication Summary Completed 10/03/2014 Patient Education: Patient Medication Summary Completed 09/25/2014 Care Plan: CBC Ordered 09/25/2014 Visit Plan: Moniter BP at home and work Check fasting lab Restart Citalopram Rec daily accuchecks 02/08/2014 Appointment: Khadijah Williamson WPtel: [phone] [facility] Annual Well Visit 02/08/2014 Patient Education: Patient [...] fasting lab 05/11/2013 Appointment: Khadijah Williamson WPtel: [address] [place], [place] [phone] 05/10 no answer FOLLOW UP 05/11/2013 Patient Education: Patient Medication Summary Completed 05/11/2013 Patient Education: Celebrex - 18+ - No MA NE Completed 05/11/2013 Patient Education: [facility] - Saving AutoInj - 18+ - Dynamic Portal ID Completed 05/11/2013 Appointment: Khadijah Williamson WPtel: [address] [place], [place] [phone] FOLLOW UP 01/18/2013 Patient Education: Patient Medication Summary Completed 01/18/2013 Patient Education: [facility] - Saving AutoInj - 18+ - Dynamic Portal ID Completed 01/18/2013 Visit Plan: Supportive care. Rest, Fluid s, Tylenol/Motrin prn fever or bodyaches. Notify if worsening symptoms. 12/22/2012 Appointment: Khadijah Williamson WPtel: [address] [place] [address] ACUTE ILLNESS 12/22/2012 Patient Education: Patient Medication Summary Completed 12/22/2012 Visit Plan: Sleep Study Continue citalop lawanda at 20mg q HS DC synthroid Check CBC, B12, iron 09/02/2012 Appointment: Khadijah Williamson WPtel: [address] [place], [place] [phone] 09/01 no answer FOLLOW UP 09/02/2012 Patient Education: Patient Medication Summary Completed 09/02/2012 Visit Plan: Check fasting lab Diflucan a nd Nystatin cream 06/17/2012 Appointment: Khadijah Williamson WPtel: [address] [place] [address] 06/16 no answer FOLLOW UP 06/17/2012 Patient Education: Patient Medication Summary Completed 06/17/2012 Visit Plan: Pt just finished round of Le vaquin and Rifampin. Doxycycline. Will add steroid dose pack if chest x-ray is clear. jAay nugent. Discussed that pt. should notify if symptoms worsen or fever occurs. Pt. sees Dr. Howard in follow up on Thursday. (Post spinal surgery) CC of chest x-ray to [facility]. Written RX for chest x-ray (PA/LAT)-pt wants to use [facility]. 03/15/2012 Appointment: Elsy Hendrickson WPtel: [address] [place] [address] ACUTE ILLNESS 03/15/2012 Patient Education: Patient Medication Summary Completed 03/15/2012 Visit Plan: See neurosurgery to discuss surgical options Discussed endoscopic spinal surgery Continue tramadol prn and use hydrocodone for severe pain 12/17/2011 Appointment: Khadijah Williamson WPtel: [address] [place] [address] 12/15 no answer FOLLOW UP 12/17/2011 Patient Education: Patient Medication Summary Completed 12/17/2011 Visit Plan: Strict 2gm Na Diet and suppo rt stockings Start Loratadine 10mg po Q HS Nasonex 2 sprays each nostil BID 10/27/2011 Appointment: Khadijah Williamson WPtel: [address] [place] [address] no answer ACUTE ILLNESS 10/27/2011 Patient Education: Patient Medication Summary Completed 10/27/2011 Visit Plan: Change metformin to Kombigly ze ER 5/1000mg daily Continue accuchecks Check Hemoccult card--will likely need colonoscopy Start iron DC Gralise Lyrica 75mg q HS for 3wks then call 08/14/2011 Appointment: Khadijah Williamson WPtel: [address] [place], [place] [address] FOLLOW UP 08/14/2011 Patient Education: Patient Medication Summary Completed 08/14/2011 Visit Plan: Repeat PT for 2-4wks Trial o f Gralise--starter pack given Use tramadol 50mg 1-2 po TID prn pain 07/09/2011 Appointment: Khadijah Williamson WPtel: [address] [place], [place] [address] [place] FOLLOW UP 07/09/2011 Patient Education: Patient Medication Summary Completed 07/09/2011 Visit Plan: Cefuroxime axetil. Discussed that will notify if symptoms worsen or do not improve. Will monitor for fever. Nasonex sample given. Encouraged rest and fluids. 02/10/2011 Appointment: Elsy Hendrickson WPtel: [address] [place] [address] ACUTE ILLNESS 02/10/2011 Patient Education: Patient Medication Summary Completed 02/10/2011 Appointment: Khadijah Williamson WPtel: [address] [place] [address] FOLLOW UP 12/12/2010 Patient Education: Patient Medication Summary Completed 12/12/2010 Visit Plan: Add Medrol Dose Pack Continu e celexa and abilify 09/18/2010 Appointment: Khadijah Williamson WPtel: [address] [place] [address] FOLLOW UP 09/18/2010 Patient Education: Patient Medication Summary Completed 09/18/2010 Appointment: Khadijah Williamson WPtel: [address] [place] [address] FOLLOW UP 08/19/2010 Patient Education: Patient Medication Summary Completed 08/19/2010 Visit Plan: Change Cymbalta to Wellbutri n XL 150mg q AM for 1wk then 300mg QD Check fasting lab 06/05/2010 Appointment: Khadijah Williamson WPtel: [address] [place] [address] FOLLOW UP 06/05/2010 Patient Education: Patient Medication Summary Completed 06/05/2010 Appointment: Khadijah Williamson WPtel: [address] [place] [address] ACUTE ILLNESS 03/12/2010 Patient Education: Patient Medication Summary Completed 03/12/2010 Visit Plan: Saline nasal flushes prn. Ty lenol/Motrin prn headache. Notify if persists/symptoms worsening. Pt has Biaxin at home and will start Check MRI L/S spine Fwup pending MRI results 09/19/2009 Appointment: Khadijah Williamson [facility]Ptel: [phone] [facility] [facility] 09/19/2009 Patient Education: Patient Medication Summary Completed 09/19/2009 Visit Plan: Discussed referral to ortho for cyst--defers at this time 06/11/2009 Appointment: Khadijah Williamson WPtel: [phone] [facility] [place] ESTABLISHED PATIENT 06/11/2009 Patient Education: Patient Medication Summary Completed 06/11/2009 Referral: Dennis Adonro WPtel: [address] [id number] [place] Referral Initiated Referral: Juanito Oneill WPtel: [facility] [address], [address] [place] Referral Appointment Requested Instructions Comment [...] for chest x-ray (PA/LAT)-pt wants to use [facility]. . See neurosurgery to discuss surgical o [...]
[2021-01-04] MEDS ORDERED: POVIDONE (BETADINE) OPHTH SOLN 5% 30 ML OP ONE (11:00)
[2021-01-04] MEDS ORDERED: LIDOCAINE PF 1% 2 ML VIAL IR PRN (11:00)
[2021-01-04] MEDS ORDERED: TIMOLOL MALEATE 0.5% 5 ML (TIMOPTIC) BTL OU PRN (11:00)
[2021-01-04] MEDS ORDERED: MOXIFLOXACIN OPHTH SOLN 5 MG/ML 0.3 ML SYRINGE OP ONE (11:00)
[2021-01-04 11:02] VITALS: BP 124/87
[2021-01-04] MEDS: TETRACAINE 0.5% OPHTH SOLN 4 ML BTL (SINGLE DOSE ONLY) OU PRN ×4 (11:04→11:19)
[2021-01-04] MEDS: PHENYLEPHRINE 10% OPHTH (NEO-SYN) 5 ML BTL OU SCH ×3 (11:09→11:19)
[2021-01-04] MEDS: TROPICAMIDE 1% OPH SOLN (MYDRIACYL) 15 ML BTL OP SCH ×3 (11:09→11:19)
--- NOTE | 2021-01-04 11:38 | Ophthalmologist Pre-Op Note ---
Pre-Operative Progress Note H&P Reviewed The H&P was reviewed, patient examined and no changes noted. Date H&P Reviewed: Jan 04, 2021 Time H&P Reviewed: 11:38 Pre-Op Dx Cataract, Right Eye TORIE CAMARILLO MD Jan 04, 2021 11:38
[2021-01-04] MEDS ORDERED: MIDAZOLAM 2 MG/2 ML (VERSED) VIAL ONE (11:43)
--- NOTE | 2021-01-04 11:59 | Ophthalmology Operative Report ---
Cataract removal/placement IOL PREOPERATIVE DIAGNOSIS: Cataract Right Eye POSTOPERATIVE DIAGNOSIS: Cataract Right Eye PROCEDURE: Cataract removal and placement of posterior chamber implant, right eye SURGEON: Fabián Camarillo ANESTHESIA: Topical with sedation COMPLICATIONS: None ESTIMATED BLOOD LOSS: Minimal DESCRIPTION OF PROCEDURE: After proper informed consent was obtained, the patient, a 65 female, was taken to the Operating Room and the right eye was anesthetized with tetracaine. The right eye was then prepped and draped in the usual manner. A wire lid speculum was placed. A paracentesis was made at the left hand position. Preservative free lidocaine was injected into the anterior chamber followed by viscoelastic. A clear corneal incision was made in the temporal position. A capsulorrhexis was preformed and the central nuclear and cortical material were removed. The posterior capsule was polished and Tae 18.0 AU00T0 IOL was placed into the capsular bag. The residual viscoelastic was aspirated and balanced saline solution was injected into the anterior chamber. Moxifloxacin was injected into the anterior chamber. The wound was checked and found to be water tight. The patient tolerated the procedure well without complications. FABIÁN CAMARILLO MD Jan 04, 2021 11:59
[2021-01-04 12:01] VITALS: BP 127/67
[2021-01-04] MEDS ORDERED: acetaZOLAMIDE ER 500 MG CAP (DIAMOX SEQUELS) PO ONE (12:30)
== END 2021-01-04 12:05 ==
LOC: SDC 10:43
PROVIDERS: ATTEND Specialist
DX: E11.36 Type 2 diabetes mellitus with diabetic cataract (principal); H25.811 Combined forms of age-related cataract, right eye; K21.9 Gastro-esophageal reflux disease without esophagitis; I10 Essential (primary) hypertension; M19.90 Unspecified osteoarthritis, unspecified site; F32.9 Major depressive disorder, single episode, unspecified; Z90.49 Acquired absence of other specified parts of digestive tract; Z79.899 Other long term (current) drug therapy; Z90.710 Acquired absence of both cervix and uterus; Z80.3 Family history of malignant neoplasm of breast; Z82.49 Family history of ischemic heart disease and other diseases of the circulatory system
CPT/HCPCS: 66984; V2632

== ENCOUNTER 2021-01-18 06:46 | Day surgery (SDC) | payer MEDICARE, OTHER ==
[~2021-01-18] VITALS: Ht 162 cm; Wt 93.0 kg
[2021-01-18] MEDS: TETRACAINE 0.5% OPHTH SOLN 4 ML BTL (SINGLE DOSE ONLY) OU PRN ×4 (06:56→07:16)
[2021-01-18] MEDS ORDERED: LIDOCAINE PF 1% 2 ML VIAL IR PRN (07:00)
[2021-01-18] MEDS ORDERED: TIMOLOL MALEATE 0.5% 5 ML (TIMOPTIC) BTL OU PRN (07:00)
[2021-01-18] MEDS ORDERED: POVIDONE (BETADINE) OPHTH SOLN 5% 30 ML OP ONE (07:00)
[2021-01-18] MEDS ORDERED: MOXIFLOXACIN OPHTH SOLN 5 MG/ML 0.3 ML SYRINGE OP ONE (07:00)
[2021-01-18 07:01] VITALS: BP 126/71
[2021-01-18] MEDS: PHENYLEPHRINE 10% OPHTH (NEO-SYN) 5 ML BTL OU SCH ×3 (07:06→07:16)
[2021-01-18] MEDS: TROPICAMIDE 1% OPH SOLN (MYDRIACYL) 15 ML BTL OP SCH ×3 (07:06→07:16)
[2021-01-18] MEDS ORDERED: MIDAZOLAM 2 MG/2 ML (VERSED) VIAL ONE (07:14)
--- NOTE | 2021-01-18 08:13 | Ophthalmologist Pre-Op Note ---
Pre-Operative Progress Note H&P Reviewed The H&P was reviewed, patient examined and no changes noted. Date H&P Reviewed: Jan 18, 2021 Time H&P Reviewed: 08:13 Pre-Op Dx Cataract, Left Eye TORIE CAMARILLO MD Jan 18, 2021 08:13
[2021-01-18] MEDS ORDERED: acetaZOLAMIDE ER 500 MG CAP (DIAMOX SEQUELS) PO ONE (08:30)
--- NOTE | 2021-01-18 08:35 | Ophthalmology Operative Report ---
Cataract removal/placement IOL PREOPERATIVE DIAGNOSIS: Cataract Right Eye POSTOPERATIVE DIAGNOSIS: Cataract Right Eye PROCEDURE: Cataract removal and placement of posterior chamber implant, right eye SURGEON: Fabián Camarillo ANESTHESIA: Topical with sedation COMPLICATIONS: None ESTIMATED BLOOD LOSS: Minimal DESCRIPTION OF PROCEDURE: After proper informed consent was obtained, the patient, a 65 female, was taken to the Operating Room and the right eye was anesthetized with tetracaine. The right eye was then prepped and draped in the usual manner. A wire lid speculum was placed. A paracentesis was made at the left hand position. Preservative free lidocaine was injected into the anterior chamber followed by viscoelastic. A clear corneal incision was made in the temporal position. A capsulorrhexis was preformed and the central nuclear and cortical material were removed. The posterior capsule was polished and Tae 18.5 AU00T0 IOL was placed into the capsular bag. The residual viscoelastic was aspirated and balanced saline solution was injected into the anterior chamber. Moxifloxacin was injected into the anterior chamber. The wound was checked and found to be water tight. The patient tolerated the procedure well without complications. FABIÁN CAMARILLO MD Jan 18, 2021 08:35
[2021-01-18 08:39] VITALS: BP 129/68
--- NOTE | 2021-01-18 12:23 | Anesthesia-General Post-Op ---
MAC Patient Condition Mental Status/LOC: Same as Preop Cardiovascular: Satisfactory Nausea/Vomiting: Absent Respiratory: Satisfactory Pain: Controlled Complications: Absent Post Op Complications Complications None Follow Up Care/Instructions Patient Instructions None needed. Anesthesiology Discharge Order Discharge Order Patient is doing well, no complaints, stable vital signs, no apparent adverse anesthesia problems. No complications reported per nursing. BETTIAN YOST CRNA Jan 18, 2021 12:23
== END 2021-01-18 08:46 ==
LOC: SDC 06:46
PROVIDERS: ATTEND Specialist
DX: E11.36 Type 2 diabetes mellitus with diabetic cataract (principal); H25.11 Age-related nuclear cataract, right eye; K21.9 Gastro-esophageal reflux disease without esophagitis; I10 Essential (primary) hypertension; E78.00 Pure hypercholesterolemia, unspecified; F32.A Depression, unspecified; Z79.899 Other long term (current) drug therapy
CPT/HCPCS: 66984; V2632

== ENCOUNTER 2022-05-07 09:53 | Inpatient (IN) | payer MEDICARE ==
[~2022-05-07 09:53] MED LIST changes: +CYCL10TA25 PO; -CYCL10TA9 PO; +HEParin (CATH LAB) 1,000 ML IV ONE; +HEParin 1000 UNIT/ML (10ML VIAL) FOR BOLUS ONE; +MIDAZOLAM 5 MG/5 ML (VERSED) VIAL ONE; +NITRO DRIP 25000 MCG/D5W 0 ML IV ONE; +NS IV 1000 ML 1,000 ML ONE; +PATIENT MAY USE OWN MEDS, ALL PO SCH; +fentaNYL INJ 100 MCG/2 ML AMP ONE
[2022-05-07] MEDS ORDERED: HEParin (CATH LAB) 1,000 ML IV ONE (09:57)
[2022-05-07] MEDS ORDERED: LIDOCAINE 1% INJ 20 ML VIAL ONE (10:07)
--- NOTE | 2022-05-07 10:07 | Cardiology History & Physical ---
HPI-Cardiology Cardiology Consultation Date of Consultation 05/07/22 Date of Admission Time Seen by Provider: 09:12 Indication: Acute ST elevation myocardial infarction HPI 66-year-old lady with history of diabetes mellitus, hypertension and hyperlipide shirley, strong family history of heart disease. Started to have chest pain and went to [place] emergency room, noted to have ST elevation [place] in the inferior posterior wall, I was contacted and I gave her 5000 units of heparin, Plavix 600 mg and recommended emergency transfer to the Medical Practice Manager. On arrival she was feeling well. Still having mild chest discomfort. No shortness of breath. Reported that she had COVID infection about 10 days ago. Social History Patient Social History Marrital Status: Employed/Student: employed ROS-Cardiology Review of Systems General: No Chills, No Night Sweats, No Fatigue, No Malaise, No Appetite HEENT: No Head Aches, No Visual Changes, No Eye Pain, No Ear Pain, No Dysphasia, No Sinus Congestion, No Post Nasal Drip, No Sore Throat Pulmonary: Dyspnea; No Cough, No Pleuritic Chest Pain Cardiovascular: Chest Pain; No: Palpitations, Orthopnea, Paroxysmal Noc. Dyspnea, Edema, Lt Headedness Gastrointestinal: No: Nausea, Vomiting, Abdominal Pain, Diarrhea, Constipation, Melena, Hematochezia Genitourinary: No Dysuria, No Frequency, No Incontinence, No Hematuria, No Retention Musculoskeletal: No: neck pain, shoulder pain, arm pain, back pain, hand pain, leg pain, foot pain Neurological: No: Weakness, Numbness, Incoordination, Change in speech, Confusion, Seizures Home Medications & Allergies Allergies: Coded Allergies: morphine (Unverified Allergy, Unknown, 01/01/21) Home Medication List Reviewed: Yes Exam-Cardiology Exam General Appearance: Alert, Oriented X3, Cooperative, No Acute Distress HEENT: Atraumatic, PERRLA Respiratory: Clear to Auscultation, Normal Air Movement Cardiovascular: Regular Rate, Normal S1, Normal S2, No Murmurs Abdominal: Normal Bowel Sounds, Soft, No Tenderness, No Hepatosplenomegaly, No Masses Extremities: No Clubbing, No Cyanosis, No Edema, Normal Pulses, No Tenderness/Swelling Skin: No Rashes, No Breakdown, No Significant Lesion Neuro: Normal Gait, Normal Speech, Strength at 5/5 X4 Ext, Normal Tone, Sensation Intact Psych/Mental Status: Mental Status NL, Mood NL A/P-Cardiology Admission Diagnosis Acute ST elevation myocardial infarction Coronary artery disease Hypertension Hyperlipidemia Admission Status: Inpatient Order (span 2 midnights) Reason for Inpatient Admission: Acute myocardial infarction Assessment/Plan Acute ST elevation myocardial infarction in the inferoposterior wall Admitted for emergency cardiac catheterization possible PTCA Coronary artery disease Emergency cardiac catheterization was done with stenting using 4.5 x 23 mm lefty point stent with excellent results. Started on aspirin and Plavix Hypertension, starting beta-blockers and MARITA inhibitor Hyperlipidemia, starting Lipitor 80 mg daily Diabetes mellitus, consult Dr. Clay Hodges family history of heart disease Status post recent COVID-19 infection about 10 days ago. Protonix for GI prophylaxis DOMENICO HOYT MD May 07, 2022 10:07
--- NOTE | 2022-05-07 10:08 | Cardiac Procedure Note-CS/ASA ---
Pre-Procedure Note Pre-Op Procedure Note Date of Available H&P: May 07, 2022 Date H&P Reviewed: May 07, 2022 Time H&P Reviewed: 09:12 History & Physical: H&P Reviewed, Patient Examed, No changes noted Pre-Operative Diagnosis: STEMI Conscious Sedation Pre-Proced Time 09:12 ASA Score 3 For ASA 3 and 4: Consider anesthesia and medical clearance. Also, for patients with a history of failed moderate sedation consider anesthesia. Airway Lungs Heart ASA score ASA 1: a normal healthy patient ASA 2: a patient with a mild systemic disease (mid diabetes, controlled hypertension, obesity ASA 3: a patient with a severe systemic disease that limits activity (angina, COPD, prior Myocardial infarction) ASA 4: a patient with an incapacitating disease that is a constant threat to life (CHF, renal failure) ASA 5: a moribund patient not expected to survive 24 hrs. (ruptured aneurysm) ASA 6: a declared brain- patient whose organs are being harvested. For emergent operations, add the letter E after the classification Mallampati Classification Grade 3 Sedation Plan Analgesia, Amnesia, Plan communicated to team members, Discussed options with patient/fam, Discussed risks with patient/fam The patient is an appropriate candidate to undergo the planned procedure, sedation, and anesthesia. The patient immediately re-assessed prior to indication. DOMENICO HOYT MD May 07, 2022 10:08
--- NOTE | 2022-05-07 10:13 | Cardiac Cath Report ---
Cardiac Cath Report Physician (s)/Photography Professor (s) Physician DOMENICO HOYT MD Pre-Procedure Diagnosis Pre-Procedure Diagnosis: STEMI Post-Procedure Note Procedure Start Date: May 07, 2022 Name of Procedure: Left heart catheterization Emergency stenting of the right coronary artery Findings/Procedure Note PROCEDURE NOTE: 66-year-old lady with a history of diabetes mellitus, hypertension and hyperlipidemia, strong family history of heart disease, admitted with acute ST elevation myocardial infarction in the inferior posterior wall. After explaining the procedure to the patient, all pros and cons were explained, all questions were answered. The patient signed the consent and then she was placed in the cardiac catheterization laboratory. Groin was prepped in SL fashion local anesthesia was used. Sheath placed in the right femoral artery. Nupur' right and left catheter were used to access the coronary system. Pigtail was used to access the left ventricular cavity. Left ventriculogram was done Patient has 95% stenosis in the mid right coronary artery, Nupur right guide was used advanced BMW wire through the lesion and parked distally did balloon dilatation using 3 x 20 balloon door to establishment of flow was 11 minutes. Skypoint stent 4.5 x 23 mm deployed under 12 terry appeared to be well opposed. Good results. 0% residual stenosis with RISA-3 flow At the end of the procedure the sheath was removed. Closure device was deployed FINDINGS: Hemodynamics LV 151/21, end-diastolic pressure of 21 Aorta 149/74 mean of 91 ANATOMY: Left Main is free of obstructive disease Left Anterior Descending has 40 to 50% ostial/proximal stenosis, the proximal portion of the LAD has 30 to 40% stenosis otherwise no significant obstructive disease Left Circumflex is nondominant artery with mild disease up to 10% stenosis nonobstructive disease Right Coronary Artery is a large dominant artery with 95% stenosis, RISA I flow, emergency stenting of the right coronary artery using Skypoint 4.5 x 23 mm deployed nominally under 12 terry with 0% residual stenosis and RISA-3 flow. LV Gram was done, mild hypokinesia of the inferior wall, ejection fraction 50% PERCUTANEOUS INTERVENTION: Pre stenosis 95% Post Stenosis 0% Pre RISA flow 1 Post RISA flow 3 Dominance right coronary artery CONCLUSION: Acute ST elevation myocardial infarction in the inferoposterior wall with emergency stenting of the right coronary artery, door to establishment of flow was 11 minutes 95% stenosis in the mid right coronary artery, successful deployment of Skypoint stent 4.5 x 23 mm deployed nominally with excellent results. No residual stenosis Moderate stenosis at the ostial LAD and proximal LAD nonobstructive disease need to be monitored closely Otherwise no significant obstructive disease Mild hypokinesia of the inferior wall, elevated left ventricular end-diastolic pressure, ejection fraction 50% DISCUSSION AND RECOMMENDATION: Patient was started on aspirin, Plavix, Lipitor 80 mg, Toprol and losartan. Anesthesia Type: Conscious Sedation Estimated blood loss (mL): 20 ml Contrast Amount: 60 ml Total Radiation Dose: 665 mGy Post-Procedure Diagnosis Post-operative diagnosis: Acute ST elevation myocardial infarction Coronary artery disease Hypertension Hyperlipidemia DOMENICO HOYT MD May 07, 2022 10:13
[2022-05-07] MEDS: PANTOPRAZOLE 40 MG (PROTONIX) TAB PO SCH (10:30)
[2022-05-07] MEDS ORDERED: CALC600T91 PO (12:02)
[2022-05-07] MEDS ORDERED: ACET-2267 PO (12:02)
[2022-05-07] MEDS ORDERED: CITA10TA9 PO (12:02)
[2022-05-07] MEDS ORDERED: CHOL500050 PO (12:02)
[2022-05-07] MEDS ORDERED: CELE200C PO (12:02)
[2022-05-07] MEDS ORDERED: MELA5TAB14 PO (12:02)
[2022-05-07] MEDS ORDERED: FENO134C21 PO (12:02)
[2022-05-07] MEDS ORDERED: VIT1CAPS5 PO (12:02)
[2022-05-07] MEDS ORDERED: ASCO100024 PO (12:02)
[2022-05-07] MEDS ORDERED: FERR-84 PO (12:02)
[2022-05-07] MEDS ORDERED: BUPR300T98 PO (12:02)
[2022-05-07] MEDS ORDERED: DOCU100C37 PO (12:02)
[2022-05-07] MEDS ORDERED: ACETAMINOPHEN 500 MG TAB (TYLENOL) ONE (15:10)
[2022-05-07] MEDS: ACETAMINOPHEN 500 MG TAB (TYLENOL) PO PRN ×2 (15:15→23:39)
[2022-05-07] MEDS: NS IV 1000 ML 1,000 ML IV SCH ×2 (17:24→22:45)
[2022-05-07] MEDS ORDERED: CALCIUM CARBONATE 500 MG (TUMS) TAB.CHEW PO PRN (22:15)
[2022-05-07] MEDS ORDERED: traZODone 50 MG (DESYREL) TAB PO PRN (22:15)
[2022-05-08 04:21] LABS: HEMATOCRIT 35 % (35-52); HEMOGLOBIN 11.5 g/dL (11.5-16.0); MEAN CORPUSCULAR HEMOGLOBIN 32 pg (25-34); MEAN CORPUSCULAR HGB CONC 33 g/dL (32-36); MEAN CORPUSCULAR VOLUME 96 fL (80-99); MEAN PLATELET VOLUME 10.2 fL (9.0-12.2); PLATELET COUNT 214 10^3/uL (130-400); WHITE BLOOD COUNT 13.6 10^3/uL (4.3-11.0)
[2022-05-08 04:44] LABS: POTASSIUM 4.2 MMOL/L (3.6-5.0)
[2022-05-08 04:45] LABS: CALCIUM 8.1 MG/DL (8.5-10.1)
[2022-05-08 04:50] LABS: CREATININE SERUM 0.81 MG/DL (0.60-1.30)
[2022-05-08] MEDS: NS IV 1000 ML 1,000 ML IV SCH (05:49)
[2022-05-08] MEDS ORDERED: CLOP75TA28 PO (06:21)
[2022-05-08] MEDS ORDERED: PANT40TA52 PO (06:21)
[2022-05-08] MEDS ORDERED: ATOR80TA76 PO (06:21)
[2022-05-08] MEDS ORDERED: ASPI-1238 PO (06:21)
--- NOTE | 2022-05-08 06:21 | Discharge Inst-Post CATH ---
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 * Limit activity of the leg (or wrist if it was used) for 7 days including aerobics, swimming, jogging, bicycling, etc. * Restrict stair-climbing for 7 days if possible, if not, climb up with your non-cath leg, then bring together on the same step. * Avoid lifting, pushing, pulling or excessive movement of the affected extremity for 7 days. * Customary sexual activity may be resumed after 2 days-use caution not to use a position that strains or causes pain to the affected extremity. * No driving for 24 hours. * NO SMOKING. * Avoid straining for bowel movements for 7 days. * Gentle walking on level ground is allowed. * Returning to work will depend on the type of procedure and the results. Your doctor will discuss this with you. CALL YOUR DOCTOR FOR ANY OF THE FOLLOWING: *If bleeding from the puncture site occurs- Apply gentle pressure to site with clean cloth and call your doctor or EMS. * If a knot or lump forms under the skin, increases in size, or causes pain. * If bruising appears to be worsening or moving further down your leg instead of disappearing. * Temperature above 101 F. CARE OF YOUR GROIN INCISION; * Bruising or purple discoloration of the skin near the puncture site is common. * You may shower only, no bathtub bathing for 5 days. Be careful to avoid slipping as your leg may feel stiff. * If a closure device was used on your femoral artery, please see the attached guide regarding care of the device and your leg. * Leave dressing on FOR 24 hours. CARE OF YOUR WRIST INCISION; * Bruising or purple discoloration of the skin near the puncture site is common. * You may shower. * DO NOT submerge wrist. * Leave dressing on FOR 24 hours. DOMENICO HOYT MD May 08, 2022 06:21
[2022-05-08] MEDS ORDERED: PANTOPRAZOLE 40 MG (PROTONIX) TAB PO SCH (07:00)
--- NOTE | 2022-05-08 08:07 | Cardiology Discharge Summary ---
Discharge Summary Hospital Course Problems Reviewed?: Yes Hospital Course Date of Admission: May 07, 2022 at 10:19 Admission Diagnosis : Family Physician/Provider: Khadijah Williamson DO Date of Discharge: 05/08/22 Discharge Diagnosis: [Acute ST elevation myocardial infarction in the inferior wall and posterior wall Coronary artery disease Hypertension Hyperlipidemia Diabetes mellitus] Hospital Course: [ Acute ST elevation myocardial infarction in the inferoposterior wall Admitted for emergency cardiac catheterization possible PTCA Coronary artery disease Emergency cardiac catheterization was done with stenting using 4.5 x 23 mm lefty point stent with excellent results. Started on aspirin and Plavix Hypertension, starting beta-blockers and MARITA inhibitor Hyperlipidemia, starting Lipitor 80 mg daily Patient does not tolerate statin, she has tried it in the past with severe muscle ache I will start her on Leqvio Diabetes mellitus, consult Dr. Clay Hodges family history of heart disease Status post recent COVID-19 infection about 10 days ago. Protonix for GI prophylaxis] Labs and Pending Lab Test: Laboratory Tests 05/07/22 12:04: Troponin I 6.906*H 05/08/22 04:09: Troponin I 11.292*H, White Blood Count 13.6H, Red Blood Count 3.64L, Hemoglobin 11.5, Hematocrit 35, Mean Corpuscular Volume 96, Mean Corpuscular Hemoglobin 32, Mean Corpuscular Hemoglobin Concent 33, Red Cell Distribution Width 12.5, Platelet Count 214, Mean Platelet Volume 10.2, Sodium Level 139, Potassium Level 4.2, Chloride Level 109H, Carbon Dioxide Level 23, Anion Gap 7, Blood Urea Nitrogen 22H, Creatinine 0.81, Estimat Glomerular Filtration Rate 79, BUN/Creatinine Ratio 27, Glucose Level 128H, Calcium Level 8.1L Home Meds Active Pantoprazole Sodium 40 Mg Tablet. 40 Mg PO DAILY Aspirin EC (Aspirin) 81 Mg Tablet. 81 Mg PO DAILY Atorvastatin Calcium 80 Mg Tablet 80 Mg PO HS Clopidogrel (Clopidogrel Bisulfate) 75 Mg Tablet 75 Mg PO DAILY Reported Docusate Sodium 100 Mg Capsule 100 Mg PO BID Melatonin 5 Mg Tablet 5 Mg PO HS Calcium (Calcium Carbonate) 600 Mg Calcium (1500 Mg) Tablet 600 Mg PO DAILY Vitamin C (Ascorbic Acid) 1,000 Mg Tablet 1,000 Mg PO DAILY Preservision Areds Softgel (Vit A/C/E/Zinc/Co) 14,320-226 Capsule 1 Cap PO BID Tylenol Extra Strength (Acetaminophen) 500 Mg Tablet 1,000 Mg PO BID Vitamin D3 (Cholecalciferol (Vitamin D3)) 125 Mcg (5000 Unit) Capsule 125 Mcg PO DAILY Iron (Ferrous Sulfate) 325 Mg (65 Mg Iron) Tablet 325 Mg PO BID Celebrex (Celecoxib) 200 Mg Capsule 200 Mg PO Q48H @HS Fenofibrate (Fenofibrate,Micronized) 134 Mg Capsule 134 Mg PO DAILY Bupropion Xl (Bupropion HCl) 300 Mg Tab.er.24h 300 Mg PO DAILY Citalopram HBr (Citalopram Hydrobromide) 10 Mg Tablet 10 Mg PO DAILY Cyclobenzaprine HCl 10 Mg Tablet 10 Mg PO HS Losartan Potassium 100 Mg Tablet 100 Mg PO HS Omeprazole 20 Mg Capsule.dr 20 Mg PO DAILY Atenolol 25 Mg Tablet 25 Mg PO DAILY Assessment/Pt DC Instructions Acute ST elevation myocardial infarction Discharge Diet: No Restrictions, Cardiac Diet Discharge Physical Examination Allergies: Coded Allergies: morphine (Unverified Allergy, Unknown, 01/01/21) lactose (Verified Adverse Reaction, Unknown, 05/07/22) General Appearance: No Apparent Distress, WD/WN HEENT: PERRL/EOMI, TMs Normal, Normal ENT Inspection, Pharynx Normal Respiratory: Chest Non Tender, Lungs Clear, Normal Breath Sounds, No Accessory Muscle Use, No Respiratory Distress Cardiovascular: Regular Rate, Rhythm, No Edema, No Gallop, No JVD, No Murmur, Normal Peripheral Pulses Gastrointestinal: Normal Bowel Sounds, No Organomegaly, No Pulsatile Mass Extremity: Normal Capillary Refill, Normal Inspection Skin: Normal Color, Warm/Dry Neurologic/Psychiatric: Alert, Oriented x3 Clinical Quality Measures Admission Status Admission Status: Inpatient Order (span 2 midnights) Reason for Inpatient Admission: Acute ST elevation myocardial infarction DOMENICO HOYT MD May 08, 2022 08:07
[2022-05-08] MEDS: PANTOPRAZOLE 40 MG (PROTONIX) TAB PO SCH (08:13)
[2022-05-08] MEDS ORDERED: LOSARTAN 25 MG (COZAAR) TAB PO SCH (09:00)
[2022-05-08] MEDS ORDERED: ASPIRIN E.C. 81 MG (ECOTRIN) TAB PO SCH (09:00)
[2022-05-08] MEDS ORDERED: CLOPIDOGREL 75 MG (PLAVIX) TABLET PO SCH (09:00)
[2022-05-08 10:20] VITALS: BP 113/61
--- NOTE | 2022-05-08 18:35 | Consultation ---
History of Present Illness History of Present Illness Patient Consulted On(jie/time) 05/08/22 18:29 Date Seen by Provider: May 07, 2022 Time Seen by Provider: 19:30 Reason for Visit: Acute ST elevation myocardial infarction History of Present Illness This is a 66 year old female transferred from [facility] with an acute ST elevation myocardial infarction. She was taken directly to the cardiac catheterization lab by Dr. Casas with balloon angioplasty and stenting to her RCA. I follow the patient for hypertension, hyperlipidemia--statin intolerant, DMII, and lumbar degnerative disc disease. She also had recent COVID-19. I am asked to consult for medical management. Allergies and Home Medications Allergies Coded Allergies: morphine (Unverified Allergy, Unknown, 01/01/21) lactose (Verified Adverse Reaction, Unknown, 05/07/22) Patient Home Medication List Home Medication List Reviewed: Yes Acetaminophen (Tylenol Extra Strength) 500 Mg Tablet, 1,000 MG PO BID, (Reported) Entered as Reported by: HUGO HOPKINS on 05/07/221201 Last Action: Reviewed Ascorbic Acid (Vitamin C) 1,000 Mg Tablet, 1,000 MG PO DAILY, (Reported) Entered as Reported by: HUGO HOPKINS on 05/07/221201 Last Action: Reviewed Aspirin (Aspirin EC) 81 Mg Tablet.dr, 81 MG PO DAILY Prescribed by: DOMENICO CASAS on 05/08/22 0621 Atenolol (Atenolol) 25 Mg Tablet, 25 MG PO DAILY, (Reported) Entered as Reported by: DANIA DUGAN on 01/01/21 1005 Last Action: Reviewed Bupropion HCl (Bupropion Xl) 300 Mg Tab.er.24h, 300 MG PO DAILY, (Reported) Entered as Reported by: HUGO HOPKINS on 05/07/221201 Last Action: Reviewed Calcium Carbonate (Calcium) 600 Mg Calcium (1500 Mg) Tablet, 600 MG PO DAILY, (Reported) Entered as Reported by: HUGO HOPKINS on 05/07/221201 Last Action: Reviewed Cholecalciferol (Vitamin D3) (Vitamin D3) 125 Mcg (5000 Unit) Capsule, 125 MCG PO DAILY, (Reported) Entered as Reported by: HUGO HOPKINS on 05/07/221201 Last Action: Reviewed Citalopram Hydrobromide (Citalopram HBr) 10 Mg Tablet, 10 MG PO DAILY, (Reported) Entered as Reported by: HUGO HOPKINS on 05/07/221201 Last Action: Reviewed Clopidogrel Bisulfate (Clopidogrel) 75 Mg Tablet, 75 MG PO DAILY Prescribed by: DOMENICO CASAS on 05/08/22620 Cyclobenzaprine HCl (Cyclobenzaprine HCl) 10 Mg Tablet, 10 MG PO HS, (Reported) Entered as Reported by: DNAIA DUGAN on 01/01/211004 Last Action: Reviewed Docusate Sodium (Docusate Sodium) 100 Mg Capsule, 100 MG PO BID, (Reported) Entered as Reported by: HUGO HOPKINS on 05/07/221201 Last Action: Reviewed Fenofibrate,Micronized (Fenofibrate) 134 Mg Capsule, 134 MG PO DAILY, (Reported) Entered as Reported by: HUGO HOPKINS on 05/07/221201 Last Action: Reviewed Ferrous Sulfate (Iron) 325 Mg (65 Mg Iron) Tablet, 325 MG PO BID, (Reported) Entered as Reported by: HUGO HOPKINS on 05/07/221201 Last Action: Reviewed Losartan Potassium (Losartan Potassium) 100 Mg Tablet, 100 MG PO HS, (Reported) Entered as Reported by: DANIA DUGAN on 01/01/211004 Last Action: Reviewed Melatonin (Melatonin) 5 Mg Tablet, 5 MG PO HS, (Reported) Entered as Reported by: HUGO HOPKINS on 05/07/221201 Last Action: Reviewed Pantoprazole Sodium (Pantoprazole Sodium) 40 Mg Tablet.dr, 40 MG PO DAILY Prescribed by: DOMENICO CASAS on 05/08/22620 Vit A/C/E/Zinc/Co (Preservision Areds Softgel) 14,320-226 Capsule, 1 CAP PO BID, (Reported) Entered as Reported by: HUGO HOPKINS on 05/07/221201 Last Action: Reviewed Discontinued Medications Amitriptyline HCl (Amitriptyline HCl) 10 Mg Tablet, 10 MG PO, (Reported) Discontinued Reason: No Longer Taking Entered as Reported by: DANIA DUGAN on 01/01/211004 Last Action: Discontinued Ascorbic Acid (Vitamin C) 1,000 Mg Tablet, 1,000 MG PO, (Reported) Discontinued Reason: Duplicate Order Entered as Reported by: DANIA DUGAN on 01/01/211004 Last Action: Discontinued Bupropion HCl (Wellbutrin Xl) 300 Mg Tab.er.24h, 300 MG PO, (Reported) Discontinued Reason: Duplicate Order Entered as Reported by: DANIA DUGAN on 01/01/211004 Last Action: Discontinued Calcium Carbonate (Calcium) 600 Mg Tablet, 600 MG PO, (Reported) Discontinued Reason: Duplicate Order Entered as Reported by: DANIA DUGAN on 01/01/211004 Last Action: Discontinued Celecoxib (Celebrex) 200 Mg Capsule, 200 MG PO Q48H @HS, (Reported) Entered as Reported by: HUGO HOPKINS on 05/07/22 1202 Last Action: Reviewed Citalopram Hydrobromide (Celexa) 10 Mg Tablet, 10 MG PO, (Reported) Discontinued Reason: Duplicate Order Entered as Reported by: DANIA DUGAN on 01/01/211004 Last Action: Discontinued Fenofibrate,Micronized (Fenofibrate) 43 Mg Capsule, 43 MG PO, (Reported) Discontinued Reason: Duplicate Order Entered as Reported by: DANIA DUGAN on 01/01/211004 Last Action: Discontinued Melatonin (Melatonin) 5 Mg Tablet, 5 MG PO, (Reported) Discontinued Reason: Duplicate Order Entered as Reported by: DANIA DUGAN on 01/01/211004 Last Action: Discontinued Mv-Mn/Iron/FA/Herbal Cmplx#190 (Vitamin D3 Complete Caplet) 1 Each Tablet, 1 EACH PO, (Reported) Discontinued Reason: Duplicate Order Entered as Reported by: DANIA DUGAN on 01/01/211004 Last Action: Discontinued Omeprazole (Omeprazole) 20 Mg Capsule.dr, 20 MG PO DAILY, (Reported) Entered as Reported by: DANIA DUGAN on 01/01/211004 Last Action: Reviewed Vit A/Vit C/Vit E/Zinc/Copper (Preservision Areds Tablet) 1 Each Tablet, 1 EACH PO, (Reported) Discontinued Reason: Duplicate Order Entered as Reported by: DANIA DUGAN on 01/01/211004 Last Action: Discontinued Past Dneabfp-Hjmmqo-Xlurdp Hx Patient Social History Marrital Status: Employed/Student: employed Tobacco Use?: No Smoking Status: Never a Smoker Use of E-Cig and/or Vaping dev: No Substance use?: No Alcohol Use?: No Pt feels they are or have been: No Immunizations Up To Date Date of Influenza Vaccine: Jan 04, 2022 Review of Systems Review of Systems General: Fatigue HEENT: No Head Aches, No Visual Changes, No Eye Pain, No Ear Pain, No Dysphasia, No Sinus Congestion, No Post Nasal Drip, No Sore Throat Pulmonary: Dyspnea; No Cough, No Pleuritic Chest Pain Cardiovascular: Chest Pain; No: Palpitations, Orthopnea, Paroxysmal Noc. Dyspnea, Edema, Lt Headedness Gastrointestinal: No: Nausea, Vomiting, Abdominal Pain, Diarrhea, Constipation, Melena, Hematochezia Genitourinary: No Dysuria, No Frequency, No Incontinence, No Hematuria, No Retention Musculoskeletal: arm pain, back pain Neurological: Weakness Physical Exam Vital Signs Vital Signs - First Documented 05/07/22 10:04 Pulse 72 Resp 16 B/P (MAP) 136/66 (89) Pulse Ox 100 O2 Delivery Nasal Cannula O2 Flow Rate 2.00 Capillary Refill : Less Than 3 Seconds Height, Weight, BMI Height: '" Weight: lbs. oz. kg; BMI Method: General Appearance: No Apparent Distress Neck: Supple Respiratory: Lungs Clear Cardiovascular: Regular Rate, Rhythm Gastrointestinal: Normal Bowel Sounds, Non Tender, Soft Rectal: Deferred Back: No CVA Tenderness Extremity: Non Tender, No Calf Tenderness, No Pedal Edema Neurologic/Psychiatric: Alert, Oriented x3 Skin: Warm/Dry Comments Laboratory Tests 05/08/22 04:09: White Blood Count 13.6H, Red Blood Count 3.64L, Hemoglobin 11.5, Hematocrit 35, Mean Corpuscular Volume 96, Mean Corpuscular Hemoglobin 32, Mean Corpuscular Hemoglobin Concent 33, Red Cell Distribution Width 12.5, Platelet Count 214, Mean Platelet Volume 10.2, Sodium Level 139, Potassium Level 4.2, Chloride Level 109H, Carbon Dioxide Level 23, Anion Gap 7, Blood Urea Nitrogen 22H, Creatinine 0.81, Estimat Glomerular Filtration Rate 79, BUN/Creatinine Ratio 27, Glucose Level 128H, Calcium Level 8.1L, Troponin I 11.292*H Microbiology 05/07/22 MRSA Screen - Final, Complete MRSA not isolated Assessment/Plan Assessment/Plan Admission Dx 1. Acute ST Elevation Myocardial Infarction--S/P stent to RCA, 40-50% stenosis in LAD 2. Hypertension--stable, back on atenolol and losartan 3. Diabetes mellitus type II--has been off meds but blood sugar was high recently with COVID-19 4. Hyperlipidemia--statin-intolerant 5. GERD--stable on omeprazole 6. Lumbar Spinal Stenosis--on celebrex and uses tramadol/hydrocodone for severe pain GARRETT LOCKWOOD DO May 08, 2022 18:35
--- NOTE | 2022-05-08 18:46 | Progress Note ---
Subjective Date Seen by a Provider: May 08, 2022 Time Seen by a Provider: 08:30 Subjective/Events-last exam Fwup acute STEMI, HTN, Hyperlipidemia, GERD, Lumbar DJD. Feeling okay. Cardiology has given the okay for her to be discharged. Objective Exam Vital Signs Date Time Temp Pulse Resp B/P (MAP) Pulse Ox O2 Delivery O2 Flow Rate FiO2 05/08/22 10:20 36.5 91 9 113/61 97 Room Air 2.00 05/08/22 09:00 91 9 113/61 (78) 97 Room Air 05/08/22 08:00 100 Room Air 05/08/22 08:00 36.5 05/08/22 08:00 92 31 138/87 (104) 97 Room Air 05/08/22 07:30 85 05/08/22 07:00 76 22 126/59 (81) 97 Room Air 05/08/22 06:00 78 18 121/73 (89) Room Air 05/08/22 05:00 87 29 129/67 (87) Room Air 05/08/22 04:00 100 Room Air 05/08/22 04:00 74 17 132/58 (82) Room Air 05/08/22 03:00 75 21 144/68 (93) Room Air 05/08/22 02:00 74 18 121/60 (80) Room Air 05/08/22 01:00 84 30 128/57 (80) Room Air 05/08/22 01:00 82 05/08/22 00:00 87 16 120/64 (82) 97 Room Air 05/08/22 00:00 36.6 05/07/22 23:59 100 Room Air 05/07/22 23:00 85 21 140/71 (94) 97 Room Air 05/07/22 22:00 85 21 133/69 (90) 94 Room Air 05/07/22 21:00 88 11 132/65 (87) 97 Room Air 05/07/22 20:18 36.2 05/07/22 20:00 100 Room Air 05/07/22 20:00 87 20 118/78 (91) 97 Room Air 05/07/22 20:00 36.5 Room Air 05/07/22 19:00 90 05/07/22 19:00 90 16 134/63 (86) 96 Nasal Cannula 2.00 I & O 05/08/22 07:00 Intake Total 470 ml Balance 470 ml Capillary Refill : Less Than 3 Seconds General Appearance: No Apparent Distress Respiratory: Lungs Clear Cardiovascular: Regular Rate, Rhythm Gastrointestinal: normal bowel sounds, non tender, soft Extremity: Non Tender, No Calf Tenderness, No Pedal Edema Neurologic/Psychiatric: Alert, Oriented x3 Skin: Warm/Dry, Other (right groin with dressing in place--dry-mildly tender) Results Lab Laboratory Tests 05/08/22 04:09: White Blood Count 13.6H, Red Blood Count 3.64L, Hemoglobin 11.5, Hematocrit 35, Mean Corpuscular Volume 96, Mean Corpuscular Hemoglobin 32, Mean Corpuscular Hemoglobin Concent 33, Red Cell Distribution Width 12.5, Platelet Count 214, Mean Platelet Volume 10.2, Sodium Level 139, Potassium Level 4.2, Chloride Level 109H, Carbon Dioxide Level 23, Anion Gap 7, Blood Urea Nitrogen 22H, Creatinine 0.81, Estimat Glomerular Filtration Rate 79, BUN/Creatinine Ratio 27, Glucose Level 128H, Calcium Level 8.1L, Troponin I 11.292*H Microbiology 05/07/22 MRSA Screen - Final, Complete MRSA not isolated Assessment/Plan Assessment/Plan Assess & Plan/Chief Complaint 1. Acute STEMI--S/P stent to RCA 2. Hypertension--stable 3. DMII with recent hyperglycemia--will continue off meds and monitor with accuchecks 4. Hyperlipidemia--statin intolerant 5. GERD--home on protonix 6. Recent COVID-19--still with fatigue/drainage 7. Lumbar DJD--will hold celebrex and use tylenol with tramadol prn Clinical Quality Measures Admission Status Admission Dx 1. Acute ST Elevation Myocardial Infarction--S/P stent to RCA, 40-50% stenosis in LAD 2. Hypertension--stable, back on atenolol and losartan 3. Diabetes mellitus type II--has been off meds but blood sugar was high recently with COVID-19 4. Hyperlipidemia--statin-intolerant 5. GERD--stable on omeprazole 6. Lumbar Spinal Stenosis--on celebrex and uses tramadol/hydrocodone for severe pain GARRETT LOCKWOOD DO May 08, 2022 18:46
== END 2022-05-08 10:20 | disposition home or self-care (01) | DRG 247 ==
LOC: CATH 09:53 → ICU 10:19
PROVIDERS: ADMIT Internal Medicine Cardiovascular Disease; ATTEND Internal Medicine Cardiovascular Disease
PROC: 027034Z Dilation of Coronary Artery, One Artery with Drug-eluting Intraluminal Device, Percutaneous Approach (ICD-10-PCS; principal; 2022-05-07)
PROC: 4A023N7 Measurement of Cardiac Sampling and Pressure, Left Heart, Percutaneous Approach (ICD-10-PCS; 2022-05-07)
PROC: B2111ZZ Fluoroscopy of Multiple Coronary Arteries using Low Osmolar Contrast (ICD-10-PCS; 2022-05-07)
PROC: B2151ZZ Fluoroscopy of Left Heart using Low Osmolar Contrast (ICD-10-PCS; 2022-05-07)
DX: I21.11 ST elevation (STEMI) myocardial infarction involving right coronary artery (principal); I25.10 Atherosclerotic heart disease of native coronary artery without angina pectoris; E11.65 Type 2 diabetes mellitus with hyperglycemia; I10 Essential (primary) hypertension; E78.5 Hyperlipidemia, unspecified; K21.9 Gastro-esophageal reflux disease without esophagitis; M51.36 Other intervertebral disc degeneration, lumbar region; Z86.73 Personal history of transient ischemic attack (TIA), and cerebral infarction without residual deficits; Z82.49 Family history of ischemic heart disease and other diseases of the circulatory system; Z79.82 Long term (current) use of aspirin; Z88.5 Allergy status to narcotic agent; Z91.011 Allergy to milk products
CPT/HCPCS: 36415; 80048; 84484; 85027; 85347; 87081; 93005; 93458

== ENCOUNTER → 2023-02-19 | Outpatient (CLI) | payer MEDICARE, OTHER ==
[~2023-02-19] MED LIST changes: +ACET-2267 PO; +ASPI-1238 PO; +ATOR80TA76 PO; +BUPR300T98 PO; +CELE200C PO; +CHOL500050 PO; +CITA10TA9 PO; +CLOP75TA28 PO; +DOCU100C37 PO; +FENO134C21 PO; +FERR-84 PO; -HEParin (CATH LAB) 1,000 ML IV ONE; -HEParin 1000 UNIT/ML (10ML VIAL) FOR BOLUS ONE; -LOSA100T57 PO; +LOSA100T58 PO; -MIDAZOLAM 5 MG/5 ML (VERSED) VIAL ONE; -NITRO DRIP 25000 MCG/D5W 0 ML IV ONE; -NS IV 1000 ML 1,000 ML ONE; +PANT40TA52 PO; -PATIENT MAY USE OWN MEDS, ALL PO SCH; +VIT1CAPS5 PO; -fentaNYL INJ 100 MCG/2 ML AMP ONE
== END ==
LOC: CARD 11:02
PROVIDERS: ATTEND Physician Assistant
DX: I35.1 Nonrheumatic aortic (valve) insufficiency (principal); I10 Essential (primary) hypertension; I25.10 Atherosclerotic heart disease of native coronary artery without angina pectoris
CPT/HCPCS: 93306